=== PATIENT | female | born 1970 | race Caucasian/White ===

== ENCOUNTER 2024-06-20 06:25 | Outpatient (OUT) | payer OTHER, SELFPAY ==
[2024-06-20 06:52] LABS: Basophils Absolute Auto 0.1 10^3/uL (0.0-0.1); Basophils Percent Auto 0.8 % (0.2-2.0); Eosinophils Absolute Auto 0.6 10^3/uL (0.0-0.7); Eosinophils Percent Auto 7.1 % (0.9-7.0); Hematocrit 42.3 % (36.0-48.0); Hemoglobin 13.7 g/dL (12.0-16.0); Immature Granulocytes Abs Auto 0.02 10^3/uL (0.00-0.03); Immature Granulocytes Pct Auto 0.2 % (0.0-0.5); Lymphocytes Absolute Auto 2.2 10^3/uL (1.2-3.8); Lymphocytes Percent Auto 25.3 % (20.5-60.0); Mean Corpuscular HGB Conc 32.4 g/dL (29.9-35.2); Mean Corpuscular Hemoglobin 29.6 pg (26.7-34.0); Mean Corpuscular Volume 91.4 fL (81.0-99.0); Mean Platelet Volume 9.6 fL (9.5-13.5); Monocytes Absolute Auto 0.5 10^3/uL (0.3-0.8); Monocytes Percent Auto 6.3 % (1.7-12.0); Neutrophils Absolute Auto 5.2 10^3/uL (1.4-6.5); Neutrophils Percent Auto 60.3 % (43.0-75.0); Platelet Count 289 10^3/uL (150-450); Red Blood Count 4.63 10^6/uL (4.20-5.40); Red Cell Distribution Width 12.7 % (11.0-15.0); White Blood Count 8.6 10^3/uL (4.0-11.0)
[2024-06-20 07:03] LABS: Estimated Average Glucose 117 mg/dL; Glycohemoglobin A1C 5.7 % (4.5-6.2)
[2024-06-20 07:22] LABS: Alanine Aminotransferase 27 U/L (14-59); Albumin Globulin Ratio 0.9; Albumin Level 3.6 g/dL (3.4-5.0); Alkaline Phosphatase 82 U/L (46-116); Anion Gap 12.2; Aspartate Amino Transferase 15 U/L (15-37); BUN Creatinine Ratio 18.4; Bilirubin Total 0.4 mg/dL (0.2-1.0); Calcium 8.9 mg/dL (8.5-10.1); Carbon Dioxide 27.9 mmol/L (21.0-32.0); Chloride 104 mmol/L (98-107); Chol HDL Ratio 4.9; Cholesterol 221 mg/dL (<=200); Estimated GFR (African America >60 (>=60); Estimated GFR (Non-African Ame >60 (>=60); Globulin 3.9 g/dL; Glucose 126 mg/dL (74-106); HDL Cholesterol 45 mg/dL (40-60); Potassium 4.1 mmol/L (3.5-5.1); Sodium 140 mmol/L (136-145); TSH W/ REFLEX FT4 3.682 uIU/mL (0.358-3.740); Total Protein 7.5 g/dL (6.4-8.2); Triglycerides 206 mg/dL (<=150); VLDL CHOLESTEROL 41.2 mg/dL
== END 2024-06-20 06:26 | disposition home or self-care (01) ==
LOC: LAB 06:31
DX: Z00.00 Encounter for general adult medical examination without abnormal findings (principal); E78.1 Pure hyperglyceridemia; E78.2 Mixed hyperlipidemia
CPT/HCPCS: 36415; 80053; 80061; 83036; 84443; 85025

== ENCOUNTER 2025-04-23 07:27 | Outpatient (OUT) | payer OTHER, SELFPAY ==
--- OUTSIDE RECORDS SUMMARY | 2025-04-23 07:33 | XMS_ITS | CCD ---
Author Organization [facility] Prov[facility] Family Practice Nurse Practitioner Name Role Phone Lv Carty Unavailable Leon Puente Unavailable Angelbruna Carmen Unavailable Lv Carty Unavailable Gordon Hernandez Unavailable Gordon Aaron Unavailable Self, Referral Attending Provider Unavailable DO Lv Carty Primary Care Provider DR JAYLYN LARSEN V Admitting Unavailable DR JAYLYN LARSEN V Attending Unavailable DR MORENA LACY Primary Care Unavailable DR JAYLYN LARSEN V Consulting Unavailable Anne, DO Lu N Primary Care Provider DEEPIKA Hurd Attending Provider [phone] Yovani Hurd Unavailable Anne, DO Lv Drake Primary Care Provider Anne, DO Lv N Referring Provider Self, Referral Attending Provider Unavailable DO Lv Carty N Attending Provider ISSA MORTON Referring Unavailable ANNE, LV N Primary Care Unavailable Pati, Maryann Unavailable Anne, DO Lv N Primary Care Provider Self, Referral Attending Provider Unavailable JAY BELL Attending Unavailabl e Lv Carty N Attending Unavailable Anne, Lv N Primary Care Unavailable Anne, Lv N Admitting Unavailable Anne, Lv N Primary Care Unavailable Self, Referral Admitting Unavailable Self, Referral Attending Unavailable ANNE, LV N Referring Unavailable ANNE, LV N Primary Care Unavailable Allergies Allergy Classification Reported Allergen(s) Allergy Type Date of Onset Reaction(s) Facility (20 sources) Amoxicillin; Translations: [AMOXICILLIN] Drug Allergy 08-31-2023 rash [facility] Repository (1 source) Amoxicillin Drug Allergy 03-19-[address] [facility] Repository Medications Current Medications Medication Drug Class(es) Dates Sig (Normalized) Sig (Original) [id number] actuat albuterol 0.09 mg/actuat metered dose inhaler (11 sources) beta2-Adrenergic Agonist Start: 12-21-2024 Albuterol Sulfate 90 mcg/actuation HFA aerosol inhaler Active INHALATION December 21, 2024 12:00am Start: 11-24-2021 take 1 puff(s) by in halation every four hours as needed Albuterol Sulfate HFA 108 (90 Base) MCG/ACT 1 puff as needed Inhalation every 4 hrs for 30 day(s) Nov, Active Start: 11-24-2021 take 1 puff(s) by in halation every four hours as needed Albuterol Sulfate HFA 108 (90 Base) MCG/ACT 1 puff as needed Inhalation every 4 hrs for 30 day(s) Nov, Active Start: 10-18-2021 take 2 puff(s) by in halation every four hours as needed Albuterol Sulfate HFA 108 (90 Base) MCG/ACT 2 puffs Inhalation every 4 hours as needed for 7 days Oct, Active take 1 puff(s) by in halation every four hours as needed Ventolin HFA 108 (90 Base) MCG/ACT 1 puff as needed Inhalation every 4 hrs Active amoxicillin 875 mg / clavulanate 125 mg oral tablet (11 sources) Penicillin-class Antibacterial Start: 09-05-2021 take 1 tablet by mouth every twelve hours Amoxicillin-Pot Clavulanate 875-125 MG 1 tablet Orally every 12 hrs for 10 day(s) Oct, Active cefdinir 300 mg oral capsule (4 sources) Cephalosporin Antibacterial Start: 11-24-2021 take 1 capsule by mouth every twelve hours Cefdinir 300 MG 1 capsule Orally every 12 hrs for 10 day(s) Nov, Active cephalexin 500 mg oral capsule (10 sources) Cephalosporin Antibacterial Start: 02-05-2024 take 1 capsule by mouth every six hours Cephalexin 500 MG 1 capsule Orally Four times a day for 5 day(s) Dec, Active Start: 09-14-2023 take 1 capsule by mo [facility] every eight hours Cephalexin 500 MG 1 capsule Orally tid for 10 day(s) Sep, Active Start: 09-30-2021 End: 10-26-2021 take 1 capsule by mouth three times daily Cephalexin 500 mg capsule Discontinued 500 MG PO Three times daily September 30, 2021 12:00am October 26, 2021 12:04pm cyclobenzaprine hydrochloride 10 mg oral tablet (18 sources) Muscle Relaxant Start: 11-16-2022 take 1 tablet by mouth every twenty-four hours Cyclobenzaprine HCl 10 MG 1 tablet at bedtime as needed Orally Once a day for 15 day(s) Nov, Active Start: 09-30-2021 End: 03-19-2024 take 1 tablet by mouth three times daily as needed for muscle spasms Cyclobenzaprine 10 mg tablet Discontinued 10 MG PO Three times daily as needed for back spasms September 30, 2021 12:00am March 19, 2024 8:39am take 1 tablet by [facility] every twenty-four hours Cyclobenzaprine HCl 10 MG 1 tablet at bedtime as needed Orally Once a day Active dexamethasone 6 mg oral tablet (4 sources) Corticosteroid Start: 11-24-2021 take 1 tablet by mouth every twenty-four hours Dexamethasone 6 MG 1 tablet Orally qd for 5 day(s) Nov, Active diclofenac sodium 75 mg delayed release oral tablet (5 sources) Nonsteroidal Anti-inflammatory Drug Start: 11-16-2022 take 1 tablet by mouth every twelve hours Diclofenac Sodium 75 MG 1 tablet as needed Orally Twice a day for 15 days Nov, Active Start: 02-02-2022 Voltaren 1 % a s directed Externally Jan, Active Estrogens Conj Synthetic A (8 sources) Estrogens Conj Synthetic A Active fluticasone propionate 0.05 mg/actuat metered dose nasal spray (9 sources) Corticosteroid Start: 03-19-2024 take 1 spray(s) nasal route once daily Fluticasone Propionate 50 mcg/actuation spray,suspension Active 2 SPRAY INTRANASAL Daily March 18, 2024 11:00pm administer into each nostril take 1 spray(s) nasal route once daily Flonase Allergy Relief 50 MCG/ACT 1 spray in each nostril Nasally Once a day Active gabapentin 300 mg oral capsule (20 sources) Anti-epileptic Agent Start: 09-18-2021 End: 03-19-2024 take 2 capsules by mouth three times daily as needed Gabapentin 300 mg capsule Active 600 MG PO Three times daily as needed March 19, 2024 8:40am Start: 09-18-2021 End: 03-19-2024 take 600 mg by mouth three times daily Gabapentin Active 600 MG PO Three times daily March 19, 2024 9:40am take 1 capsule by mo [facility] every twenty-four hours Gabapentin 300 MG 1 capsule Orally Once a day Not-Taking ibuprofen 200 mg oral tablet (20 sources) Nonsteroidal Anti-inflammatory Drug Start: 09-18-2021 take 2 tablets by mouth once daily as needed Ibuprofen 200 mg Tablet Active 400 MG PO Daily as needed for MIGRAINES September 17, 2021 11:00pm Start: 09-18-2021 take 400 mg by mouth once milena y Ibuprofen Active 400 MG PO Daily September 18, 2021 12:00am take 1 tablet by charlie three times daily at mealtime as needed Advil 200 MG 1 tablet with food or milk as needed Orally Three times a day Active {2 (480 ML) (magnesium sulfate 0.0277 MEQ/ML / potassium sulfate 0.0374 MEQ/ML / sodium sulfate 0.257 MEQ/ML Oral Solution) } Pack [Suprep Bowel Prep Kit] (2 sources) Start: 05-11-2021 Suprep Bowel P rep Kit 17.5-3.13-1.6 GM/177ML 177ml at 4pm, 177ml at 11pm the day prior to colonoscopy Orally bid for 1 days Apr, Active methylPREDNISolone 4 mg oral tablet (20 sources) Corticosteroid Start: 12-19-2023 Medrol 4 MG as directed Orally as directed for 6 Dec, Active Start: 06-25-2022 DEPO-Medrol Jul, 80 mg Start: 09-05-2021 Medrol (Jae) 4 MG as directed Orally for daily dose take half with breakfast half with dinner for 6 days Aug, Not-Taking oseltamivir 75 mg oral capsule (1 source) Neuraminidase Inhibitor Start: 12-21-2024 take 1 capsule by mouth twice daily Oseltamivir (Tamiflu) 75 mg capsule Active 75 MG PO Twice daily 10 December 21, 2024 12:00am predniSONE 20 mg oral tablet (20 sources) Start: 09-14-2023 take 1 tablet by mouth every twelve hours predniSONE 20 MG 1 tablet Orally bid for 5 day(s) Sep, Active Start: 07-07-2023 take 2 tablets by [facility] every twenty-four hours predniSONE 20 MG 2 tablet Orally Once a day for 6 days Jun, Active Start: 10-25-2022 predniSONE 10 MG 4 tablet x 3 days, 3 tabs x 3 days 2 tabs x 3 days, 1 tab x 3 days Orally Once a day for 12 day(s) Oct, Not-Taking Start: 11-03-2021 End: 03-19-2024 Prednisone 10 mg tablet Discontinued 10 MG PO Daily November 03, 2021 12:00am March 19, 2024 8:41am 60mg daily for three days, 40mg daily for three days, 20mg daily for three days, 10mg daily for three days. Start: 10-18-2021 take 2 tablets by [facility] every twenty-four hours predniSONE 20 MG 2 tablets Orally Once a day for 5 days Oct, Active Start: 09-30-2021 End: 10-26-2021 Prednisone 10 mg tablets,dos e pack Discontinued 1 dose pk PO per package directions September 30, 2021 12:00am October 26, 2021 12:04pm take 4 tabs for 3 days then take 3 tabs for 3 days then take 2 tabs for 3 days then take 1 tab for 3 days Start: 09-30-2021 End: 10-26-2021 Prednisone Discontinued 1 do se pk PO per package directions September 30, 2021 12:00am October 26, 2021 12:04pm take 4 tabs for 3 days then take 3 tabs for 3 days then take 2 tabs for 3 days then take 1 tab for 3 days Start: 09-30-2021 End: 10-26-2021 Prednisone Discontinued 1 do se pk PO per package directions September 30, 2021 1:00am October 26, 2021 1:04pm take 4 tabs for 3 days then take 3 tabs for 3 days then take 2 tabs for 3 days then take 1 tab for 3 days prednisone 10 mg as directed Orally as directed Active tiZANidine 4 mg oral tablet (11 sources) Central alpha-2 Adrenergic Agonist Start: 07-07-2023 take 1 tablet by mouth once daily at bedtime as needed tiZANidine HCl 4 MG 1 tablet as needed Orally qhs for 15 days Jun, Active Start: 09-05-2021 tiZANidine HCl 4 MG 1 tablet as needed Orally at bedtime for 5 days Aug, Not-Taking Completed/Discontinued Medications Medication Drug Class(es) Dates Sig (Normalized) Sig (Original) atorvastatin 40 mg oral tablet (9 sources) HMG-CoA Reductase Inhibitor Start: 10-07-2021 take 1 tablet by mouth every twenty-four hours Atorvastatin Calcium 40 MG 1 tablet Orally Once a day for 90 day(s) Sep, Not-Taking doxycycline hyclate 100 mg oral capsule (6 sources) Tetracycline-cla ss Drug Start: 10-25-2022 take 1 capsule by mouth every twelve hours Doxycycline Hyclate 100 MG 1 capsule Orally Twice a day for 10 day(s) Oct, Not-Taking Start: 06-25-2022 take 1 tablet by charlie th every twelve hours Doxycycline Hyclate 100 MG 1 tablet Orally Twice a day for 10 day(s) Jun, Active estrogens, conjugated (mcfp) 0.3 mg oral tablet (7 sources) Estrogen Start: 09-18-2021 End: 03-19-2024 take 1 tablet by mouth once daily in the morning Conjugated Estrogens (Premarin) 0.3 mg Tablet Discontinued 0.3 MG PO Every morning September 17, 2021 11:00pm March 19, 2024 8:39am hydrocortisone acetate 25 mg rectal suppository (7 sources) Corticosteroid Start: 05-22-2021 End: 09-18-2021 Hydrocortisone Acetate 25 mg suppository Discontinued 25 MG SC Twice daily 06 06May 21, 2021 11:00pm September 18, 2021 12:31pm hydrOXYzine hydrochloride 25 mg oral tablet (7 sources) Antihistamine Start: 11-03-2021 End: 03-19-2024 take 1 tablet by mouth every six hours as needed Hydroxyzine Hcl 25 mg tablet Discontinued 25 MG PO Q6H as needed for itching November 03, 2021 12:00am March 19, 2024 8:41am omeprazole 40 mg delayed release oral capsule (15 sources) Proton Pump Inhibitor Start: 05-22-2021 End: 03-19-2024 take 1 capsule by mouth twice daily Omeprazole 40 mg capsule,delayed release(DR/EC) Discontinued 40 MG PO Twice daily 168 84 May 21, 2021 11:00pm March 19, 2024 8:41am take 1 capsule by mouth once noemi ly Omeprazole 40 MG 1 capsule 30 minutes before morning meal Orally Once a day Active ondansetron 4 mg oral tablet (7 sources) Serotonin-3 Receptor Antagonist Start: 10-26-2021 End: 03-19-2024 take 1 tablet by mouth every eight hours as needed for nausea and vomiting Ondansetron Hcl (Zofran) 4 mg tablet Discontinued 4 MG PO Q8H as needed for nausea and vomiting 10 17October 26, 2021 12:00am March 19, 2024 8:41am oxyCODONE hydrochloride 5 mg oral tablet (10 sources) Opioid Agonist Start: 09-30-2021 End: 10-26-2021 take 5-10 mg by mouth every six hours as needed for pain Oxycodone 5 mg Tablet Discontinued 5 - 10 MG PO Q6H as needed for Pain 40 September 30, 2021 October 26, 2021 12:04pm pseudoephedrine hydrochloride 60 mg oral tablet (20 sources) alpha-Adrenergic Agonist Start: 03-19-2024 End: 12-21-2024 take 1 tablet by mouth every four to six hours as needed Pseudoephedrine Hcl 60 mg tablet Discontinued 60 MG PO EVERY 4-6 HOURS as needed March 18, 2024 11:00pm December 21, 2024 4:48pm DNExceed 4 doses/24h Start: 09-18-2021 End: 10-26-2021 Pseudoephedrine Hcl (Sudafed ) 30 mg Tablet Discontinued 30 MG PO 2-4 TIMES PER DAY as needed for ALLERGIES September 17, 2021 11:00pm October 26, 2021 12:04pm Sudafed Active Problems Active Problems Problem Classification Problem Date Documented Da te Episodic/Chronic Asthma (18 sources) Mild intermittent asthma; Translations: [Mild intermittent asthma with (acute) exacerbation] Chronic Chronic obstructive pulmonary disease and bronchiectasis (2 sources) Mucopurulent chronic bronchitis Onset: 06-25-2022 Resolved: 06-25-2022 Chronic Disorders of lipid metabolism (20 sources) Mixed hyperlipidemia; Translations: [Mixed hyperlipidemia] Onset: 09-30-2021 Resolved: 09-30-2021 Chronic Fluid and electrolyte disorders (7 sources) Hypovolemia; Translations: [Hypovolemia] 10-26-2021 Episodic Gastrointestinal hemorrhage (20 sources) Rectal hemorrhage; Translations: [Hemorrhage of anus and rectum] 03-19-2024 Episodic Headache; including migraine (3 sources) Migraine; Translations: [Migraine, unspecified, not intractable, without status migrainosus] 03-19-2024 Chronic Immunizations and screening for infectious disease (6 sources) Contact with and (suspected) exposure to other viral communicable diseases; Translations: [Contact with or exposure to other viral diseases] Onset: 09-05-2021 Resolved: 10-18-2021 Episodic Influenza (2 sources) Influenza due to Influenza A virus; Translations: [Influenza due to other identified influenza virus with other respiratory manifestations] 12-21-2024 Episodic Nausea and vomiting (7 sources) Nausea; Translations: [Nausea] 10-26-2021 Episodic Osteoarthritis (20 sources) Arthropathy of left hip joint; Translations: [Unilateral primary osteoarthritis, left hip] Onset: 08-04-2021 Resolved: 08-04-2021 Chronic Other connective tissue disease (20 sources) Trochanteric bursitis of left hip; Translations: [Trochanteric bursitis, left hip] Episodic Other connective tissue disease (16 sources) Bilateral trochanteric bursitis; Translations: [Trochanteric bursitis, right hip] Episodic Other connective tissue disease (2 sources) Other muscle spasm Episodic Other connective tissue disease (9 sources) Trochanteric bursitis; Translations: [Trochanteric bursitis, left hip] 03-19-2024 Episodic Other female genital disorders (1 source) Unspecified dyspareunia; Translations: [Unspecified dyspareunia] Onset: 10-14-2023 Chronic Other gastrointestinal disorders (20 sources) Dysphagia; Translations: [Dysphagia, unspecified] 03-19-2024 Episodic Other gastrointestinal disorders (7 sources) Diarrhea; Translations: [Diarrhea, unspecified] 10-26-2021 Episodic Other lower respiratory disease (2 sources) Wheezing Onset: 11-24-2021 Resolved: 11-24-2021 Episodic Other nervous system disorders (20 sources) Chronic pain; Translations: [Other chronic pain] 03-19-2024 Chronic Other nervous system disorders (1 source) Other chronic pain Onset: 02-02-2022 Resolved: 02-02-2022 Chronic Other nervous system disorders (13 sources) Other disturbances of smell and taste; Translations: [Other disturbances of smell and taste] Episodic Other nervous system disorders (3 sources) Disorder of body system; Translations: [Other disturbances of smell and taste] 03-19-2024 Episodic Other non-traumatic joint disorders (19 sources) Hip pain; Translations: [Pain in unspecified hip] 03-19-2024 Episodic Other non-traumatic joint disorders (1 source) Pain in left shoulder Episodic Other screening for suspected conditions (not mental disorders or infectious disease) (3 sources) Encounter for screening for cardiovascular disorders; Translations: [Encounter for screening mammogram for malignant neoplasm of breast] Onset: 08-05-2021 Resolved: 08-05-2021 Episodic Other skin disorders (7 sources) Eruption; Translations: [Rash and other nonspecific skin eruption] 11-03-2021 Episodic Other upper respiratory infections (5 sources) Acute maxillary sinusitis, unspecified; Translations: [Acute pansinusitis, unspecified] Onset: 09-05-2021 Resolved: 06-25-2022 Episodic Pneumonia (except that caused by tuberculosis or sexually transmitted disease) (1 source) Bronchopneumonia, unspecified organism Episodic Residual codes; unclassified (3 sources) H/O Spinal surgery; Translations: [Other specified postprocedural states] 03-19-2024 Episodic Spondylosis; intervertebral disc disorders; other back problems (20 sources) Lumbosacral spondylosis; Translations: [Spondylosis without myelopathy or radiculopathy, lumbosacral region] Onset: 08-05-2021 Resolved: 01-12-2022 Chronic Spondylosis; intervertebral disc disorders; other back problems (18 sources) Spinal stenosis, lumbar region without neurogenic claudication; Translations: [Radiculopathy, lumbar region] Onset: 08-04-2021 Resolved: 01-12-2022 Episodic Unclassified (3 sources) Tonsillectomy planned; Translations: [Tonsillectomy planned] 03-19-2024 Unclassified (3 sources) Cholecystectomy planned; Translations: [Cholecystectomy planned] 03-19-2024 Unclassified (1 source) Gynecologic Exam Onset: 10-10-2024 Viral infection (10 sources) Disease caused by 2019-nCoV; Translations: [COVID-19] 10-26-2021 Episodic Past or Other Problems Problem Classification Problem Date Documented Da te Episodic/Chronic Other connective tissue disease (1 source) Trochanteric bursitis, right hip Onset: 02-02-2022 Resolved: 02-02-2022 Episodic Other connective tissue disease (2 sources) Trochanteric bursitis, left hip Onset: 01-12-2022 Resolved: 02-02-2022 Episodic Other non-traumatic joint disorders (1 source) Pain in unspecified hip Onset: 02-02-2022 Resolved: 02-02-2022 Episodic Other upper respiratory disease (1 source) Nasal congestion Onset: 11-24-2021 Resolved: 11-24-2021 Episodic Sprains and strains (1 source) Strain of other muscles, fascia and tendons at shoulder and upper arm level, left arm, initial encounter Onset: 09-05-2021 Resolved: 09-05-2021 Episodic Unclassified (1 source) Subacute cough R05.2 Viral infection (2 sources) COVID-19 Onset: 10-18-2021 Resolved: 10-18-2021 Results Test Name Value Interpretation Reference Range Facil ity MM screening mammo BI w/CADo n 06-18-2024 MM screening mammo BI w/CAD [facility] [place] [address] Mammography Report Signed Patient: Mindi Zheng MR#: [id number] : 1970 Acct:[id number] Age/Sex: 54 / F ADM Date: 06/18/24 Loc: [place] Room: Type: [facility] Attending Dr: Referral Self Copies to: Lv Carty, SELF,REFERRAL Ordering Provider: SELF,REFERRAL Date of Service: 06/18/24 MM/MM screening mammo BI w/CAD: SCREENING BILATERAL Screening Full Field digital mammogram with 3-D imaging. Full field digital CC and MLO imaging performed. CAD utilized. COMPARISON: 06/13/2023 HISTORY: Annual screening BREAST COMPOSITION: Scattered fibroglandular densities of the breast parenchyma identified BREAST CALCIFICATIONS: Benign calcifications present. VASCULAR CALCIFICATIONS: None ARCHITECTURAL DISTORTION: None BREAST NODULE: None AXILLARY LYMPH NODES: Normal POSTSURGICAL CHANGES: None MM/MM screening mammo BI w/CAD IMPRESSION: No mammographic evidence of malignancy. Routine follow-up recommended in one year. RESULT CODE: 2 Benign Findings(s) DENSITY CODE: 2 (approximately 25-50% glandular) FOLLOW UP: 1YR THE FALSE-NEGATIVE RATE OF MAMMOGRAPHY IS APPROXIMATELY 10%. IMAGING OF A PALPABLE ABNORMALITY MUST BE BASED ON CLINICAL GROUNDS. PATIENT WAS ENTERED INTO A REMINDER SYSTEM WITH A TARGET DUE DATE FOR THE NEXT MAMMOGRAM. Impression dictated by: Haris Linares M.D.06/18/2024 8:47 AM Dictation Location: [facility] Transcribed By: LISA 06/18/24846 Dictated By: Haris Linares DO 06/18/2446 Signed By: 06/18/24 0847 Normal [facility] COVID + FLU Quick Testingon 12-19-2023 SARS-CoV-2 (COVID-19) RNA BREANNA+probe Ql (Unsp spec) Positive [facility] [employer] Other COVID + FLU Quick Testing Negative [facility] [employer] Other XR cerv spine AP/LAT/FLX/EXT on 07-07-2023 XR cerv spine AP/LAT/FLX/EXT [facility] [address] XRay Report Signed Patient: Mindi Zheng MR#: [id number] : 1970 Acct:[id number] Age/Sex: 53 / F ADM Date: 07/07/23 Loc: [facility] Room: Type: [facility] Attending Dr: Lv Carty DO Copies to: Lv Carty DO Ordering Provider: Lv Carty DO Date of Service: 07/07/23 XR/XR cerv spine AP/LAT/FLX/EXT: Neck pain CERVICAL SPINE 4 views: CLINICAL HISTORY: Left neck, scapular, shoulder pain COMPARISON: None FINDINGS: Vertebral body and disc space heights appear maintained. Mild endplate and facet joint degenerative changes. No pathological motion on flexion or extension. No prevertebral soft tissue swelling. XR/XR cerv spine AP/LAT/FLX/EXT IMPRESSION: MILD DEGENERATIVE CHANGES INVOLVING THE CERVICAL SPINE WITHOUT SIGNIFICANT DISC HEIGHT LOSS. Impression dictated by: Maycol Colon Jr., D.OAmanuel07/07/2023 4:01 PM Dictation Location: [facility]--12 Transcribed By: [facility] 07/07/23 1601 Dictated By: Maycol Colon Jr, DO 07/07/23 1600 Signed By: 07/07/23 1601 Normal [facility] XR chest 2V*on 11-16-2022 XR chest 2V* [facility] [employer] Other XR chest 2V* [facility] [employer] Other XR chest 2V* [address] [place] [address] [employer] Other XR chest 2V* [place] [address] [facility] Other XR chest 2V* XRay Report [facility] Other XR chest 2V* Signed [employer] Other XR chest 2V* Patient: Mindi Zheng MR#: [id number] [facility] Other XR chest 2V* 7706 [employer] Other XR chest 2V* : 1970 Acct:[id number] [employer] Other XR chest 2V* Age/Sex: 52 / F ADM Date: 11/16/22 [employer] Other XR chest 2V* [facility] Room: Type : [facility] [employer] Other XR chest 2V* Attending Dr: Jack Hurd APRN [employer] Other XR chest 2V* Copies to: Yovani Hurd APRN [employer] Other XR chest 2V* Ordering Provider: Yovani Hurd APRN [employer] Other XR chest 2V* Date of Service: 11/16/22 [facility] Other XR chest 2V* XR/XR chest 2V*: Subacute cough [employer] Other XR chest 2V* Chest 2 views [facility] [employer] Other XR chest 2V* CLINICAL HISTORY: Nonproductive cough for 2 weeks with left shoulder pain for 2 days. [employer] Other XR chest 2V* COMPARISON: None [employer] Other XR chest 2V* FINDINGS: [facility] Other XR chest 2V* Heart normal size. Lungs are clear. No free air. [employer] Other XR chest 2V* XR/XR chest 2V* [employer] Other XR chest 2V* IMPRESSION: [employer] Other XR chest 2V* NO ACUTE CARDIOPULMONARY ABNORMALITY. [employer] Other XR chest 2V* Impression dictated by: Maycol Colon Jr., D.OAmanuel11/16/2022 3:35 PM [employer] Other XR chest 2V* Dictation Location: [place] [address] [employer] Other XR chest 2V* Transcribed By: LISA 11/16/22 [facility] [employer] Other XR chest 2V* Dictated By: Maycol Colon Jr, DO 11/16/22 [facility] [employer] Other XR chest 2V* Signed By: [employer] Other XR chest 2V* 11/16/22 1535 [facility] [employer] Other XR hips BI 4V adulton 2021 XR hips BI 4V adult [facility] [employer] Other XR hips BI 4V adult [facility] Other XR hips BI 4V adult [address] [facility] [employer] Other XR [place] [address] [employer] Other XR hips BI 4V adult XRay Report [employer] Other XR hips BI 4V adult Signed [employer] Other XR hips BI 4V adult Patient: Mindi Zheng MR#: [id number] [employer] Other XR hips BI 4V adult 7706 [employer] Other XR hips BI 4V adult : 1970 Acct:[id number] [employer] Other XR hips BI 4V adult Age/Sex: 51 / F ADM Date: 02/02/22 [employer] Other XR hips BI 4V adult Loc: [facility] Room: Type: REG CLI [employer] Other XR hips BI 4V adult Attending Dr: Gordon Aaron MD [employer] Other XR hips BI 4V adult Ordering Provider: Gordon Aaron MD [facility] Other XR hips BI 4V adult Date of Service: 02/02/22 [facility] Other XR hips BI 4V adult XR/XR hips BI 4V adult: Hip pain [facility] Other XR hips BI 4V adult Copies to: Gordon Aaron MD [facility] Other XR hips BI 4V adult ADULT PELVIS WITH BILATERAL HIPS -3 views [facility] Other XR hips BI 4V adult CLINICAL HISTORY: Bilateral chronic hip and groin pain, greater on the left. No reported injury. [facility] Other XR hips BI 4V adult Back surgery 4 months ago. [facility] Other XR hips BI 4V adult COMPARISON: KUB 08/23/2014 [facility] Other XR hips BI 4V adult AP view of the pelvis as well as frog-lateral views of both hips were obtained. No fracture, [facility] Other XR hips BI 4V adult dislocation or bony destruction is seen. The hip joint spaces are symmetric. There is no sig [facility] Other XR hips BI 4V adult nificant arthritic change at the hips. Enthesophytes are visualized at the iliac crests and greater [facility] Other XR hips BI 4V adult trochanters. The SI joints are intact and show minor sclerosis. The soft tissues are unremarkable. [facility] Other XR hips BI 4V adult XR/XR hips BI 4V adult [facility] Other XR hips BI 4V adult IMPRESSION: [facility] Other XR hips BI 4V adult NO ACUTE PLAIN FILM FINDINGS. [facility] Other XR hips BI 4V adult Impression dictated by: Tracey Carlson M.D.02/02/2022 3:50 PM [facility] Other XR hips BI 4V adult Dictation Location: [place] [address] [facility] Other XR hips BI 4V adult Transcribed By: LISA 02/02/22 1550 [facility] Other XR hips BI 4V adult Dictated By: Tracey Carlson MD 02/02/22 1548 [facility] Other XR hips BI 4V adult Signed By: [facility] Other XR hips BI 4V adult 02/02/22 1550 [facility] Other COVID + FLU Quick Testingon 11-24-2021 SARS-CoV-2 (COVID-19) RNA BREANNA+probe Ql (Unsp spec) Negative [facility] Other COVID + FLU Quick Testing Negative [facility] Other COVID Quick Testingon 2020 Result Positive [facility] Other XR lumbar spine AP/LAT/FLX/E XTon 08-04-2021 XR lumbar spine AP/LAT/FLX/EXT [facility] Other XR lumbar spine AP/LAT/FLX/EXT [facility] Other XR lumbar spine AP/LAT/FLX/EXT [address] [place] [address] [facility] Other XR lumbar spine AP/LAT/FLX/[place] [address] [employer] Other XR lumbar spine AP/LAT/FLX/EXT XRay Report [facility] Other XR lumbar spine AP/LAT/FLX/EXT Signed [facility] Other XR lumbar spine AP/LAT/FLX/EXT Patient: Mindi Zheng MR#: [id number] [facility] Other XR lumbar spine AP/LAT/FLX/EXT 7706 [facility] Other XR lumbar spine AP/LAT/FLX/EXT : 1970 Acct:[id number] [facility] Other XR lumbar spine AP/LAT/FLX/EXT Age/Sex: 51 / F ADM Date: 08/04/21 [facility] Other XR lumbar spine AP/LAT/FLX/EXT Loc: XD Room: Type: [facility] Other XR lumbar spine AP/LAT/FLX/EXT Attending Dr: Leon Puente MD [facility] Other XR lumbar spine AP/LAT/FLX/EXT Ordering Provider: Leon Puente MD [facility] Other XR lumbar spine AP/LAT/FLX/EXT Date of Service: 08/04/21 [employer] Other XR lumbar spine AP/LAT/FLX/EXT XR/XR lumbar spine AP/LAT/FLX/EXT: M54.16 [facility] Other XR lumbar spine AP/LAT/FLX/EXT Copies to: Leon Puente MD [facility] Other XR lumbar spine AP/LAT/FLX/EXT XR lumbar spine AP/LAT/FLX/EXT 08/04/2021 2:11 PM [facility] Other XR lumbar spine AP/LAT/FLX/EXT SIGNS AND SYMPTOMS: Low back pain radiating to left thigh radiating to the mid and lower calf [facility] Other XR lumbar spine AP/LAT/FLX/EXT PROTOCOLS: Frontal, lateral, and flexion-extension views of the lumbar spine [facility] Other XR lumbar spine AP/LAT/FLX/EXT COMPARISON: 12/08/2018 [employer] Other XR lumbar spine AP/LAT/FLX/EXT FINDINGS: [facility] Other XR lumbar spine AP/LAT/FLX/EXT There is a levoconvex curvature of the lumbar spine. This is slightly more pronounced when [facility] Other XR lumbar spine AP/LAT/FLX/EXT compared to the prior exam. There is no fracture or destructive lesion. There is no pathologic [facility] Other XR lumbar spine AP/LAT/FLX/EXT movement on flexion or extension. [facility] Other XR lumbar spine AP/LAT/FLX/EXT Minimal intervertebral disc height loss is noted throughout the lumbar spine with mild anterior [facility] Other XR lumbar spine AP/LAT/FLX/EXT osteophyte formation at T12-L1, L1-L2, L2-3, and L5-S1. Facet degenerative changes are present [facility] Other XR lumbar spine AP/LAT/FLX/EXT greatest at L4-5 and L5-S1.. [facility] Other XR lumbar spine AP/LAT/FLX/EXT The sacrum and sacroiliac joints are normal. [facility] Other XR lumbar spine AP/LAT/FLX/EXT Atherosclerotic changes are noted in the abdominal aorta. There is evidence of prior [facility] Other XR lumbar spine AP/LAT/FLX/EXT cholecystectomy. [facility] Other XR lumbar spine AP/LAT/FLX/EXT XR/XR lumbar spine AP/LAT/FLX/EXT [facility] Other XR lumbar spine AP/LAT/FLX/EXT IMPRESSION: [facility] Other XR lumbar spine AP/LAT/FLX/EXT Mild multilevel degenerative change similar to prior exam. [facility] Other XR lumbar spine AP/LAT/FLX/EXT There is a mild levoconvex curvature of the lumbar spine. This is slightly more pronounced. [facility] Other XR lumbar spine AP/LAT/FLX/EXT No pathologic movement on flexion or extension. [facility] Other XR lumbar spine AP/LAT/FLX/EXT Impression dictated by: Marck Desir M.D.08/04/2021 4:42 PM [facility] [employer] Other XR lumbar spine AP/LAT/FLX/EXT Dictation Location: [address] [employer] Other XR lumbar spine AP/LAT/FLX/EXT Transcribed By: PWS 08/04/21 [facility] [employer] Other XR lumbar spine AP/LAT/FLX/EXT Dictated By: Marck Desir II, MD 08/04/21 [facility] Other XR lumbar spine AP/LAT/FLX/EXT Signed By: [employer] Other XR lumbar spine AP/LAT/FLX/EXT 08/04/21 [facility] [employer] Other Vital Signs Date Time Vital Sign Value Performing Clinician Facility 12-21-2024 16:50-0500 Body height 168.91 cm [facility] 12-21-2024 16:50-0500 Body mass index (BMI) [Ratio] 31.8 kg/m2 [facility] 12-21-2024 16:50-0500 Body temperature 97.3 [degF] [facility] 12-21-2024 16:50-0500 Body weight 90.71 kg [facility] 12-21-2024 16:50-0500 Diastolic blood pressure 75 mm[Hg] [facility] 12-21-2024 16:50-0500 Heart rate 110 /min [facility] 12-21-2024 16:50-0500 Respiratory rate 18 /min [facility] 12-21-2024 16:50-0500 SaO2% (BldA) [Mass fraction] 97 % [facility] 12-21-2024 16:50-0500 Systolic blood pressure 122 mm[Hg] [facility] 03-19-2024 09:36-0400 Body height 168.91 cm [facility] 03-19-2024 09:36-0400 Body mass index (BMI) [Ratio] 34 kg/m2 [facility] 03-19-2024 09:36-0400 Body weight 97.18 kg [facility] 03-19-2024 09:36-0400 Diastolic blood pressure 78 mm[Hg] [facility] 03-19-2024 09:36-0400 Heart rate 87 /min [facility] 03-19-2024 09:36-0400 SaO2% (BldA) [Mass fraction] 98 % [facility] 03-19-2024 09:36-0400 Systolic blood pressure 112 mm[Hg] [facility] 12-19-2023 09:00-0500 Body height 168.91 cm Maryann Pati Other [facility] [employer] Other 12-19-2023 09:00-0500 Body mass index (BMI) [Ratio] 31.79 kg/m2 Maryann Pati Other [facility] Other 12-19-2023 09:00-0500 Body temperature 97.2 [degF] Maryann Pati Other [facility] Other 12-19-2023 09:00-0500 Body weight 90.72 kg Maryann Pati Other [facility] Other 12-19-2023 09:00-0500 Respiratory rate 18 /min Maryann Pati Other [facility] Other 12-19-2023 09:00-0500 SaO2% (BldA) [Mass fraction] 96 % Maryann Ptai Other [facility] Other 08-04-2023 09:00-0400 Body height 168.91 cm Lv Carty Other [facility] Other 08-04-2023 09:00-0400 Body mass index (BMI) [Ratio] 32.16 kg/m2 Lv Mendozamer Other [facility] Other 08-04-2023 09:00-0400 Body weight 91.76 kg Lv Mendozamer Other [facility] Other 08-04-2023 09:00-0400 Diastolic blood pressure 88 mm[Hg] Lv Anne Other [facility] Other 08-04-2023 09:00-0400 Respiratory rate 18 /min Lv Anne Other [facility] Other 08-04-2023 09:00-0400 SaO2% (BldA) [Mass fraction] 97 % Lv Anne Other [facility] Other 08-04-2023 09:00-0400 Systolic blood pressure 122 mm[Hg] Lv Anne Other [facility] Other 07-07-2023 15:15-0400 Body height 168.91 cm Lv Anne Other [facility] Other 07-07-2023 15:15-0400 Body mass index (BMI) [Ratio] 33.22 kg/m2 Lv Anne Other [facility] Other 07-07-2023 15:15-0400 Body weight 94.8 kg Lv Carty Other [facility] Other 07-07-2023 15:15-0400 Diastolic blood pressure 78 mm[Hg] Lv Carty Other [facility] Other 07-07-2023 15:15-0400 Respiratory rate 18 /min Lv Carty Other [facility] Other 07-07-2023 15:15-0400 SaO2% (BldA) [Mass fraction] 98 % Lv Carty Other [facility] Other 07-07-2023 15:15-0400 Systolic blood pressure 130 mm[Hg] Lv Carty Other [facility] Other 11-16-2022 14:45-0500 Body height 168.91 cm Yovani Hurd Other [facility] Other 11-16-2022 14:45-0500 Body mass index (BMI) [Ratio] 31.67 kg/m2 Yovani Hurd Other [facility] Other 11-16-2022 14:45-0500 Body weight 90.36 kg Yovani Hurd Other [facility] Other 11-16-2022 14:45-0500 Diastolic blood pressure 78 mm[Hg] Yovani Hurd Other [facility] Other 11-16-2022 14:45-0500 Respiratory rate 16 /min Yovani Hurd Other [facility] Other 11-16-2022 14:45-0500 SaO2% (BldA) [Mass fraction] 99 % Yovani Hurd Other [facility] Other 11-16-2022 14:45-0500 Systolic blood pressure 122 mm[Hg] Yovani Kernks Other [facility] Other 10-25-2022 10:30-0500 Body height 168.91 cm Yovani Hurd Other [facility] Other 10-25-2022 10:30-0500 Body mass index (BMI) [Ratio] 31.89 kg/m2 Yovani Hurd Other [facility] Other 10-25-2022 10:30-0500 Body temperature 98 [degF] Yovani Hurd Other [facility] Other 10-25-2022 10:30-0500 Body weight 90.99 kg Yovani Hurd Other [facility] Other 10-25-2022 10:30-0500 Diastolic blood pressure 78 mm[Hg] Yovani Hurd Other [facility] Other 10-25-2022 10:30-0500 Respiratory rate 16 /min Yovani Hurd Other [facility] Other 10-25-2022 10:30-0500 SaO2% (BldA) [Mass fraction] 99 % Yovani Hurd Other [facility] Other 10-25-2022 10:30-0500 Systolic blood pressure 118 mm[Hg] Yovani Hurd Other [facility] Other 06-25-2022 10:45-0400 Body height 168.91 cm Lv Carty Other [facility] Other 06-25-2022 10:45-0400 Body mass index (BMI) [Ratio] 32.51 kg/m2 Lv Carty Other [facility] Other 06-25-2022 10:45-0400 Body temperature 99.4 [degF] Lv Anne Other [facility] Other 06-25-2022 10:45-0400 Body weight 92.76 kg Lv Anne Other [facility] Other 06-25-2022 10:45-0400 Diastolic blood pressure 84 mm[Hg] Lv Anne Other [facility] Other 06-25-2022 10:45-0400 Respiratory rate 18 /min Lv Mendozamer Other [facility] Other 06-25-2022 10:45-0400 SaO2% (BldA) [Mass fraction] 98 % Lv Mendozamer Other [facility] Other 06-25-2022 10:45-0400 Systolic blood pressure 124 mm[Hg] Lv Anne Other [facility] Other 02-02-2022 16:30-0400 Body height 168.91 cm Gordon Aaron Other [facility] Other 02-02-2022 16:30-0400 Body mass index (BMI) [Ratio] 31.79 kg/m2 Gordon Aaron Other [facility] Other 02-02-2022 16:30-0400 Body weight 90.72 kg Gordon Aaron Other [facility] Other 01-12-2022 11:20-0500 Body height 168.91 cm Leon Puente Other [facility] Other 01-12-2022 11:20-0500 Body mass index (BMI) [Ratio] 31.79 kg/m2 Leon Puente Other [facility] Other 01-12-2022 11:20-0500 Body weight 90.72 kg Leon Puente Other [facility] Other 11-24-2021 10:45-0500 Body height 168.91 cm Lv Carty Other [facility] Other 11-24-2021 10:45-0500 Respiratory rate 18 /min Lv Carty Other [facility] Other 11-24-2021 10:45-0500 SaO2% (BldA) [Mass fraction] 98 % Lv Carty Other [facility] Other 11-10-2021 14:00-0500 Body height 168.91 cm Leon Puente Other [facility] Other 11-10-2021 14:00-0500 Body mass index (BMI) [Ratio] 31.79 kg/m2 Leon Puente Other [facility] Other 11-10-2021 14:00-0500 Body weight 90.72 kg Leon Puente Other [facility] Other 10-18-2021 10:00-0500 Body height 168.91 cm Gordon Hernandez Other [facility] Other 10-18-2021 10:00-0500 Body mass index (BMI) [Ratio] 31.79 kg/m2 Gordon Hernandez Other [facility] Other 10-18-2021 10:00-0500 Body temperature 98 [degF] Gordon Hernandez Other [facility] Other 10-18-2021 10:00-0500 Body weight 90.72 kg Gordon Hernandez Other [facility] Other 10-18-2021 10:00-0500 Diastolic blood pressure 91 mm[Hg] Gordon Hernandez Other [facility] Other 10-18-2021 10:00-0500 SaO2% (BldA) [Mass fraction] 98 % Gordon Hernandez Other [facility] Other 10-18-2021 10:00-0500 Systolic blood pressure 136 mm[Hg] Gordon Hernandez Other [facility] Other 09-05-2021 13:30-0400 Body height 168.91 cm Carmen Ginty Other [facility] Other 09-05-2021 13:30-0400 Body mass index (BMI) [Ratio] 32.75 kg/m2 Carmen Ginty Other [facility] Other 09-05-2021 13:30-0400 Body temperature 97.5 [degF] Carmen Ginty Other [facility] Other 09-05-2021 13:30-0400 Body weight 93.44 kg Carmen Ginty Other [facility] Other 09-05-2021 13:30-0400 SaO2% (BldA) [Mass fraction] 100 % Carmen Ginty Other [facility] Other 08-05-2021 11:30-0400 Body height 168.91 cm Lv Mendozamer Other [facility] Other 08-05-2021 11:30-0400 Body mass index (BMI) [Ratio] 32.84 kg/m2 Lv Carty Other [facility] Other 08-05-2021 11:30-0400 Body temperature 96.9 [degF] Lv Anne Other [facility] Other 08-05-2021 11:30-0400 Body weight 93.71 kg Lv Anne Other [facility] Other 08-05-2021 11:30-0400 Diastolic blood pressure 84 mm[Hg] Lvsantana Carty Other [facility] Other 08-05-2021 11:30-0400 Respiratory rate 18 /min Lv Anne Other [facility] Other 08-05-2021 11:30-0400 SaO2% (BldA) [Mass fraction] 98 % Lv Carty Other [facility] Other 08-05-2021 11:30-0400 Systolic blood pressure 130 mm[Hg] Lv Carty Other [facility] Other 08-04-2021 14:20-0400 Body height 168.91 cm Leon Puente Other [facility] Other 08-04-2021 14:20-0400 Body mass index (BMI) [Ratio] 31.79 kg/m2 Leon Puente Other [facility] Other 08-04-2021 14:20-0400 Body weight 90.72 kg Leon Puente Other [facility] Other 08-04-2021 14:20-0400 Diastolic blood pressure 72 mm[Hg] Leon Puente Other [facility] Other 08-04-2021 14:20-0400 Systolic blood pressure 124 mm[Hg] Leon Puente Other [employer] Other Encounters Encounter Date Encounter Type Care Provider Facility Start: 12-21-2024 End: 12-21-2024 ambulatory [facility] Work Phone: Start: 12-21-2024 End: 12-21-2024 Patient encounter procedure [facility] [place] Work Phone: Start: 10-10-2024 End: 10-10-2024 ambulatory [facility] Start: 10-10-2024 Encounter for gynecological examination (general) (routine) without abnormal findings [facility] Start: 06-19-2024 End: 06-19-2024 ambulatory JAY BELL Not Available Start: 06-18-2024 End: 06-18-2024 Patient encounter procedure DO Lv Carty Work Phone: [facility] Work Phone: Start: 06-18-2024 End: 06-18-2024 ambulatory DO Lv Carty Work Phone: [facility] Work Phone: Start: 03-19-2024 End: 03-19-2024 ambulatory [facility] Work Phone: Start: 03-19-2024 End: 03-19-2024 Patient encounter procedure [facility] [place] Work Phone: Start: 12-19-2023 End: 12-19-2023 ambulatory Maryanntri [employer] Other [facility] Other Start: 12-19-2023 Office outpatient vi sit 15 minutes Maryann Pati [facility] [place] Start: 12-19-2023 Telephone encounter Lv Najera [facility] [place] Start: 10-14-2023 End: 11-14-2023 ambulatory [facility] [place] Start: 09-14-2023 End: 09-14-2023 ambulatory Lv Carty Other [facility] Other Start: 09-14-2023 Telephone encounter Lv Najera [facility] [place] Start: 08-19-2023 End: 08-19-2023 ambulatory Lv Carty Other [facility] Other Start: 08-19-2023 Telephone encounter Lv Najera [facility] [place] Start: 08-04-2023 (Procedure) Short Lvsantana Caryt [facility] [place] Start: 08-04-2023 End: 08-04-2023 ambulatory Lv Carty Other [facility] Other Start: 07-14-2023 End: 07-14-2023 ambulatory Lv Carty Other [facility] Other Start: 07-14-2023 Telephone encounter Lv Najera [facility] [place] Start: 07-08-2023 End: 07-08-2023 ambulatory Lv Carty Other [facility] Other Start: 07-08-2023 Telephone encounter Lv Najera [facility] [place] Start: 07-07-2023 End: 07-07-2023 Patient encounter procedure DO Lv Carty Work Phone: [facility] Start: 07-07-2023 End: 07-07-2023 ambulatory DO Lv Carty Work Phone: [facility] Work Phone: Start: 07-07-2023 Office outpatient vi sit 15 minutes Lv Carty [facility] Start: 06-13-2023 End: 06-13-2023 ambulatory DO vL Carty Work Phone: [facility] Work Phone: Start: 06-13-2023 End: 06-13-2023 Patient encounter procedure DO Lv Carty Work Phone: [facility] Work Phone: Start: 11-16-2022 End: 11-16-2022 ambulatory DO Lv Carty Work Phone: [facility] Work Phone: Start: 11-16-2022 End: 11-16-2022 Patient encounter procedure DO Lv Carty Work Phone: [facility] [place] Start: 11-16-2022 Office outpatient vi sit [address] [facility] [place] Start: 11-16-2022 Telephone encounter Lv Najera [facility] Start: 11-16-2022 End: 11-16-[address] JAYLYN LARSEN Facility: Start: 10-25-2022 End: 10-25-2022 ambulatory Yovani Hurd Other [facility] Other Start: 10-25-2022 Office outpatient vi sit 15 minutes Yovani Hurd [facility] Start: 09-27-2022 End: 09-27-2022 ambulatory Lv Carty Other [facility] Other Start: 09-27-2022 Telephone encounter Lv Najera [facility] [place] Start: 09-17-2022 End: 09-17-2022 ambulatory Lv Carty Other [facility] Other Start: 09-17-2022 Telephone encounter Lv Najera [facility] [place] Start: 06-25-2022 End: 06-25-2022 ambulatory Lv Carty Other [facility] Other Start: 06-25-2022 Office outpatient vi sit 15 minutes Lv Anne [facility] [place] Start: 06-07-2022 End: 06-07-2022 Patient encounter procedure Referral Self [facility] Start: 02-03-2022 End: 02-03-2022 ambulatory Gordon Aaron Other [facility] Other Start: 02-03-2022 Telephone encounter Gordon Aaron [employer] Start: 02-02-2022 End: 02-02-2022 ambulatory Gordon Aaron Other [facility] Other Start: 02-02-2022 Office consultation new/estab patient 60 min Gordon Aaron [facility] [place] Start: 01-12-2022 End: 01-12-2022 ambulatory Leon Puente Other [facility] Other Start: 01-12-2022 Postop follow up vis it related to original px Leon Puente [facility] Neuro[facility] Start: 11-24-2021 End: 11-24-2021 ambulatory Lv Carty Other [facility] Other Start: 11-24-2021 Office outpatient vi sit [address] [facility] Start: 11-10-2021 End: 11-10-2021 ambulatory Leon Puente Other [facility] Other Start: 11-10-2021 Postop follow up vis it related to original px Leon Puente [facility] Neurosurgery Start: 11-04-2021 End: 11-04-2021 ambulatory Lv Carty Other [facility] Other Start: 11-04-2021 Telephone encounter Lv Najera [facility] Start: 10-28-2021 End: 10-28-2021 ambulatory Lv Carty Other [facility] Other Start: 10-28-2021 Telephone encounter Lv Najera [facility] Start: 10-18-2021 End: 10-18-2021 ambulatory Gordon Hernandez Other [facility] Other Start: 10-18-2021 Office outpatient vi sit 15 minutes Gordon Orme [facility] Urgent Care [facility] Start: 09-30-2021 End: 09-30-2021 ambulatory Lv Carty Other [facility] Other Start: 09-30-2021 Telephone encounter Lv Najera [facility] Start: 09-07-2021 Telephone encounter Leon Puente [facility] Neurosurgery Start: 09-05-2021 End: 09-05-2021 ambulatory Carmen Ginty Other [facility] Other Start: 09-05-2021 Office outpatient vi sit 15 minutes Carmen Khannty [facility] [place] Start: 08-27-2021 Telephone encounter Leon Puente [facility] Neurosurgery Start: 08-05-2021 Encounter for genera l adult medical examination without abnormal findings Lv Carty [facility] Start: 08-05-2021 Periodic preventive med est patient 40-64yrs Lv Carty [facility] Start: 08-04-2021 Office outpatient ne w 45 minutes Leon Puente [facility] Neurosurgery Procedures Date Procedure Procedure Detail Performing Clinician Start: 06-18-2024 Screening mammography of bilateral breasts DO Lv Carty Work Phone: Start: 07-07-2023 X-ray of cervical spine DO Lv Landin lorenzo Work Phone: Start: 06-13-2023 Screening mammography of bilateral breasts DO Lv Carty Work Phone: Start: 11-16-2022 Plain chest X-ray DO Lv Carty Work Phone: Start: 06-07-2022 Screening mammography of bilateral breasts Referral Self H/O: hysterectomy H/O hysterecto my with oophorectomy Immunizations Immunization Date Immunization Notes Care Provider Fa cility NEGATED: Highlighted row has not occurred!08-16-2022 influenza, seasonal, injectable Patient Objection Lv Anne Other [facility] [email or web address] Other Payers Date Payer Category Payer Self-pay [id number] 2014 Private Health Insurance [id number] 1970 Unknown [id number] 2.16.84 [id number] 1970 Unknown [id number] [id number] [id number] 1970 Unknown [id number] 2.16.84 [id number] 1970 Unknown [id number] 2.16.8 [id number] 1960 Self-pay [id number] Private Health Insurance [id number] Unknown [id number] [id number] [id number] Unknown [id number] 2.16.8 [id number] Social History Date Type Detail Facility Sex Assigned At [facility] [email or web address] Other Start: 11-03-2021 End: 11-03-2021 Tobacco smoking status NHIS Never smoked tobacco (finding) [facility] Start: 1970 Sex Assigned At Female [facility] Start: 12-21-2024 Sex Female (finding) [facility] Clinical Notes 08-04-2021 to 12-19-2023 Note Date & Type Note Facility 12-19-2023 Evaluation note Encounter Date Diagnosis Assessment Notes Dec, Contact with and (suspected) exposure to other viral communicable diseases (ICD-10 - Z20.828) Dec, COVID (ICD-10 - U07.1) Rest. Drink plenty of fluids. You may take [id number] nter Tylenol or Motrin as needed for fever or discomfort. Take the Keflex 500 mg 4 times a day for the next 5 days for your sinus infection. Take the Medrol Dosepak as directed. You tested positive for COVID but you have had symptoms for anywhere from 7 to 10 days at this point. You will need to wear a mask in public until day 10. Follow-up with your primary care provider if symptoms persist. Patient is a 53-year-old female who presents to urgent care with complaints of Slam sinus congestion and sinus pressure for the past week or more. Patient states that initially it started out with an upper respiratory type illness which subsided slightly with symptoms however now she has sinus congestion sinus pain and headaches. She denies any fever or chills. She does have a history of asthma. Patient was swabbed for COVID and flu during this visit. She did test positive for COVID. Patient has had about 7 to 10 days of symptoms at this time. Slight expiratory wheezes noted in the bilateral upper lobes posteriorly. Patient is positive for sinus inflammation, sinus congestion, green drainage. She has fullness in the ears with clear fluid behind the TM. Patient is being diagnosed with an acute sinusitis. She is being prescribed Keflex which has worked for her in the past. She is to take the Keflex as prescribed for the next 5 days. She was prescribed a Medrol Dosepak that she will take as directed. Patient is to follow-up with her primary care provider if symptoms persist. Dec, Acute sinusitis, recurrence not specified, unspecified location (ICD-10 - J01.90) [facility] Other 09-21-2023 Evaluation note* Encounter Date Diagnosis Assessment Notes Treatment Notes Treatment Clinical Notes Jul, Trigger point of neck (ICD-10 - M54.2) Jul, Trigger point of left shoulder region (ICD-10 - M25.512) 3 trigger points identified with 2 in the left trapezius and 1 in the left upper paraspinal muscle. Trigger point injection performed today and aftercare instruction detail the patient. [facility] Other 08-24-2023 Evaluation note* Encounter Date Diagnosis Assessment Notes Treatment Notes Treatment Clinical Notes Jun, Neck pain (ICD-10 - M54.2) Patient continues to have neck pain that is concerning for underlying osteoarthritis. She also has paraspinal muscle pain and spasm as well as trapezius pain and spasm. Will obtain x-rays of the neck and give a short supply of steroids and muscle relaxers. Gave rehab exercises for both cervical and trapezius to help alleviate the pain and spasm. If this is not working well enough would consider formal physical therapy. Also if there is significant arthritis on the x-ray could consider pain management referral for injections. Jun, Trapezius muscle spasm (ICD-10 - M62.838) If cervical pain comes down patient continues to have tightness and pain in the trapezius could consider trigger point injections. [facility] Other 01-03-2023 Evaluation note* Encounter Date Diagnosis Assessment Notes Treatment Notes Treatment Clinical Notes Nov, Neck pain (ICD-10 - M54.2) Advised patient that neck pain may be associated with increased cough, however, I am not convinced that it is and may be seperate concerns. Advised that will treat neck pain and spasms initially with Diclofenac Sodium 75mg orally BID and use cyclobenzaprine 10mg orally daily at bedtime for spasms. Advised to continue to perform stretching exercises and to call back if no relief and we will consider formal physical therapy. Patient acknowledges understanding and agrees to treatment. Nov, Subacute cough (ICD-10 - R05.2) 52 y.o female seen in the office today for continued cough after treatment of bronchial pneumonia with antibiotic and steroids. she reports using OTC meds with minimal relief. She is also complaining of left shoulder and neck pain with some extensuation in between her scapula. She is concnerned that she has pneumonia. Advised that her current symptoms are not consistent with pneumonia given she is afebrile and her vitals are stable. Advised that will obtian chest x-ray to r/o underlying cause of subacute cough. X-ray performed in the office and shows no acute cardiopulmonary abnormalities. Advised to contninue with OTC meds and home remedies to decrease cough. Advised to call back if experiences fever, SOB, N/V/D. Patient acknowledges understanding. Nov, Spasm of cervical paraspinous muscle (ICD-10 - M62.838) Nov, Mild intermittent asthma with acute exacerbation (ICD-10 - J45.21) Advised patient to continue to use Ventolin inhaler prn for SOB. [facility] Other 12-12-2022 Evaluation note* Encounter Date Diagnosis Assessment Notes Treatment Notes Treatment Clinical Notes Oct, Bronchial pneumonia (ICD-10 - J18.0) 52 y.o. female seen in the office today for continued rhinoorhea, chest congestion and productive cough. I did appreciate a mild inspiratory wheeze on physical exam. She has been experiencing symptoms for over 2 weeks now. Advised to start doxycycline 100mg BID for 10days and to take prenisone tapered dose for her wheezing 40mg x 3 days, 30mg x 3 days, 20mg x 3 days and then 10mg x 3 days. Advised that symptoms should continue to improve in 3-4 days but fercho complete the antibiotic. Advised to call back right away if experiences increased fever, CP, SOB, and/or N/V/D. Pt acknowledges understanding and agrees to treatment. Oct, Wheezing (ICD-10 - R06.2) [facility] Other 11-14-2022 Evaluation note* Encounter Date Diagnosis Assessment Notes Treatment Notes Treatment Clinical Notes Sep, Purulent bronchitis (ICD-10 - J41.1) [facility] Other 08-12-2022 Evaluation note* Encounter Date Diagnosis Assessment Notes Treatment Notes Treatment Clinical Notes Jun, Acute non-recurrent maxillary sinusitis (ICD-10 - J01.00) Patient has an acute sinusitis and has severe sinus inflammation and pressure and to help alleviate this issue quickly she was given an IM Depo-Medrol injection. She can use [id number] Flonase and nasal saline irrigation as well to help reduce symptoms. Jun, Purulent bronchitis (ICD-10 - J41.1) Patient has clinical evidence and symptoms suggestive of purulent bronchitis and she will be placed on doxycycline 100 mg twice daily for this issue. She is to call right away if she feels she is worsening or not improving. [facility] Other 03-22-2022 Evaluation note* Encounter Date Diagnosis Assessment Notes Treatment Notes Treatment Clinical Notes Jan, Hip pain (ICD-10 - M25.559) Patient appeasrs to have done very well with lumbar surgery. She has bilateral hip pain consistent with trochanteric bursitis. We discussed treatment options, she is somewhat nervous and reluctant to try injections today. We will start with more conservative care, we will prescribe Voltaren gel to be applied two to three times daily. Risks and side effects of this medication was discussed in detail with the patient who voiced understanding. Patient was encouraged to continue with use of Ibuprofen and Tylenol as needed for pain. Additionally, patient was provided with trochanteric bursitis exercises to do at home. At follow up should her pain symptoms persist we would further suggest trochanteric bursa injections. Jan, Trochanteric bursitis, right hip (ICD-10 - M70.61) Jan, Trochanteric bursitis, left hip (ICD-10 - M70.62) Jan, Chronic pain (ICD-10 - G89.29) Jan, Other Above note written by Edgar Anderson LPN, Statement Request Clerk. Edited and approved by Dr. Gordon Aaron MD. Medical decision making shows a new problem to me with further workup planned or suggested with the potential for extensive treatment options that were considered with the most applicable given this patient's situation as noted above. Treatment options considered include a combination of physical therapy approaches, pharmacologic management, and interventional procedures. Those most applicable to the patient were discussed at this time. Risk of complications and/or morbidity and mortality is high given that acute and chronic pain poses a threat to life and bodily function if undertreated, poorly treated or with failure to maintain adequate treatment and timely followup. Given the serious and fluctuating nature of pain with extensive consideration for whenever pain changes, there always remains the possibility of prolonged functional impairment requiring constant patient reassessment and high-level medical decision making. The amount and complexity of data reviewed is high given that patient labs, radiology reports, and other test were obtained, reviewed and summarized as applicable from the physician portal and/or outside medical records. Pertinent positive and negative findings were considered in medical decision-making. [facility] Other 03-01-2022 Evaluation note* Encounter Date Diagnosis Assessment Notes Treatment Notes Treatment Clinical Notes Jan, Lumbar degenerative disc disease (ICD-10 - M51.36) With regard to her decompression the patient is doing very well, having some residual S1 numbness. She is walking well but has left hip pain secondary to the trochanter and probably the hip joint. I would recommend a trochanteric injection and if incomplete relief a trial intra-articular left hip injection I believe this is the source of most of her pain. I will refer her to pain management for this injection. I think her radicular symptoms have almost completely gone away. Once this is done I think therapy would be appropriate I will see her back in 8 weeks Jan, Lumbar radiculopathy (ICD-10 - M54.16) Jan, Trochanteric bursitis of left hip (ICD-10 - M70.62) [facility] Other 01-11-2022 Evaluation note* Encounter Date Diagnosis Assessment Notes Treatment Notes Treatment Clinical Notes Nov, Head congestion (ICD-10 - R09.81) Nov, Acute non-recurrent maxillary sinusitis (ICD-10 - J01.00) Due to the fact the symptoms have been going on for over a 10 days an antibiotic will be started and patient is instructed to finish the entire course of it. She was also instructed to use OTC medications like Mucinex and do nasal saline flushes. She was instructed that she should start feeling better within the next 5 days and if not she should return or call. She agrees to the treatment plan and voice understanding. Nov, Wheezing (ICD-10 - R06.2) [facility] Other 12-28-2021 Evaluation note* Encounter Date Diagnosis Assessment Notes Treatment Notes Treatment Clinical Notes Oct, Lumbar degenerative disc disease (ICD-10 - M51.36) At 1 month postop the patient is doing well with good relief of left leg pain. She is much better than when she was having problems prior to surgery. 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 Patient understands and agrees. She declines physical therapy. She is very happy with her progress I'll see her again in 2 months Oct, Lumbar radiculopathy (ICD-10 - M54.16) [facility] Other 12-05-2021 Evaluation note* Encounter Date Diagnosis Assessment Notes Treatment Notes Treatment Clinical Notes Oct, Contact with and (suspected) exposure to other viral communicable diseases (ICD-10 - Z20.828) Oct, COVID-19 virus infection (ICD-10 - U07.1) Today you tested positive for the COVID virus. This mean you need to follow all CDC quarantine guidelines found at [email or web address]. It is important to rest, increase fluids, and stay at home. Contact PCP and inform them of results. Medications like Mucinex, Cepacol, Tylenol, saline nasal spray are over the counter medications that can help with the symptoms. Current guidelines include staying home for at least 10 days, having no fever above 100.4 for 24 hours without medication and having significant improvement of symptoms before you are allowed to stop your quarantine. Contact primary care and ask for guidance is essential to follow up. Oct, Acute non-recurrent pansinusitis (ICD-10 - J01.40) Even though patient is positive for Covid, she is at day 7 of her symptoms. Patient states that she is at risk for sinus infections and I believe she is trending towards an acute sinusitis. With this in mind, and due to her recent back surgery, I feel it is reasonable to start her on antibiotics for her sinus infection and also place her on 5 days of 40 mg of prednisone daily. She also appears to have a mild asthma exacerbation. She is encouraged to drink plenty of fluids and follow-up with her primary doctor. Patient understands and agrees with the plan. Oct, Other Additional time spent conducting pre-visit phone call, screening for symptoms, instructions on social distancing, application and removal of PPE, and cleaning of examination room, equipment and supplies was preformed. Patient education given for testing methodology and results. Patient care instructions given in writting by [facility] document. [facility] Other 11-17-2021 Evaluation note* Encounter Date Diagnosis Assessment Notes Treatment Notes Treatment Clinical Notes Sep, Mixed hyperlipidemia (ICD-10 - E78.2) [facility] Other 10-23-2021 Evaluation note* Encounter Date Diagnosis Assessment Notes Treatment Notes Treatment Clinical Notes Aug, Acute non-recurrent maxillary sinusitis (ICD-10 - J01.00) Advised patient that rapid covid antigen test today in office was negative. Will tx today for bacterial sinusitis based on physical exam and duration of symptoms. Reviewed allergies and recent antibiotic use. Take antibiotic as prescribed, complete entire course of therapy even if symptoms resolve. Supportive care as directed, push fluids and rest, OTC cold medications as directed on packagin, Tylenol and/or Motrin as directed for discomfort/fever, warm moist compress over sinuses several times a day, cool mist humidification, nasal saline spray as directed. Symptoms should improve in the next 3 days, if symptoms persist follow up with PCP. Immediate eval for warning s/sx as discussed. Patient verbalizes understanding and is agreeable to treatment plan Aug, Strain of left supraspinatus muscle, initial encounter (ICD-10 - S46.812A) Discussed dx with patient. Take medications as directed. Use muscle relaxer at night time as it may cause drowsiness. May take during the day if needed but do not operate machinery or drive as it may cause drowsiness. Patient states that she needs something stronger for the pain. Advised patient to call PCP/Ortho doctor. May take OTC Tylenol, Warm compress, light stretches, and massage may also help with pain. Avoid strenuous activity, perform activity as tolerated, do not stay stationary for long periods of time as it might make symptoms worse. Follow up with PCP in 1 week. Immediate eval if chest pain, shortness of breath, fever, numbness or tingling, loss of bowel or bladder control, pain becomes severe, difficulty moving neck, back, arms or legs, dizziness, headache, or any other new or concerning symptoms. Patient verbalizes understanding and is agreeable to treatment plan Aug, Contact with and (suspected) exposure to other viral communicable diseases (ICD-10 - Z20.828) Aug, Other Additional time spent conducting pre-visit phone call, screening for symptoms, instructions on social distancing, application and removal of PPE, and cleaning of examination room, equipment and supplies was preformed. Patient education given for testing methodology and results. Patient care instructions given in writting by [facility] Care [facility] Home document [facility] Other 09-22-2021 Evaluation note* Encounter Date Diagnosis Assessment Notes Treatment Notes Treatment Clinical Notes Jul, Well adult exam (ICD-10 - Z00.00) 51-year-old female who is overall very healthy other than chronic back issues which she is planning to undergo surgery to help fix. She is currently on gabapentin 300 mg tablets 2 in the morning and 2 at night for her back pain issue that is prescribed by her neurologist and controlled by her neurosurgeon. She is due for updated lab work but she is going to be getting presurgical testing so I will only order lipid panel which she can have done at the same time she has her presurgical testing. I will review all of her lab work and as long as it is within normal limits she can follow-up in 1 year. She is up-to-date on her colon cancer screening and her breast cancer screening. 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 Overall this is very mild, it is probably secondary to her side effects of radiculopathy and abnormal gait Jul, Spinal stenosis, lumbar region without neurogenic claudication (ICD-10 - M48.061) I have independently reviewed the MRI of the lumbar spine and the plain x-ray and the reports. This patient has a left lateral recess stenosis secondary to disc and ligamentous hypertrophy at L4-5. She has clinically a left L5 radiculopathy with numbness in the left lateral calf, slight weakness of her foot, and significant radiculopathy with standing and walking. Because this is stenosis it will not be helped with physical therapy. She has had numerous sessions now with manipulation and treatment for this at her wellness center of at least 5 or 6 sessions that has not helped. I spent 50 minutes face to face with the patient reviewing imaging and discussing treatment options and risks and bemnefits of surgery. She is aware of the indication operation postop course risk benefits of surgery as well as limitations. She understands she can have an infection nerve damage spinal fluid leak and/or hematoma and paralysis. She would like to proceed with surgical decompression L4-5 on the left. Jul, Radiculopathy, lumbar region (ICD-10 - M54.16) [facility] Other evaluation noteNo InformationNort [facility] Other evaluation noteNo assessment information available [facility] Work Phone: Evaluation note* Diagnosis Onset Date Resolution Status Admit Date Influenza A acute December 21, 2024 4:37pm Contact with or suspected exposure to severe acute respiratory syndrome noneactive December 4:37pm [facility] Work Phone: History general Narrative - Reported* Type Description Date Medical History herpes Medical History asthma Medical History chronic low back pain Surgical History tonsillectomy Surgical History Hyseterectomy 2017 Surgical History Cholecystectomy 2019 Hospitalization History see surgical hx. [facility] Other History general Narrative - Reported* Type Description Date Medical History herpes Medical History asthma Medical History chronic low back pain Medical History sinusitis Medical History migraine headache Surgical History tonsillectomy Surgical History Hyseterectomy 2017 Surgical History Cholecystectomy 2019 Surgical History back surgery 09/30/2021 Hospitalization History see surgical hx. [facility] [email or web address] Other Reason for Referral Reason *Waiting for appt Evaluate and Treat L Hip Trochanteric Bursitis with Injection Diagnosis 1 Trochanteric bursiti s of left hip (M70.62) Referral Organization [facility] Ne urosurgery Referring Provider First Name Leon Referring Provider Last Name Lisa Referring Provider Specialty Neurologica l Surgery Referred Organization [facility] [place] Referred Provider Gordon Aaron Referred Address [address] [facility] [place] Referred Provider Specialty Pain Medicin e Referral Priority Routine General Notes Keyanna Araiza 022 03:18:10 PM >Received today and sent P2P Chief Complaint and Reason for Visit Chief Complaint Screening Chief Complaint Lump in neck Chief Complaint Admit Date Congestion December 21, 2024 4 :37pm Reason for Visit Admit Date Influenza A December 21, 2024 4 :37pm Contact with or suspected ex posure to severe acute respiratory syndrome December 21, 2024 4:37pm Family History Relationship Condition Age at Onset Recorded Date/T elidia father Heart disease Unknown Not Specified Malignant neoplasm of breast Unknown Relationship Condition Age at Onset Recorded Date/T elidia father Heart disease Unknown Not Specified Malignant neoplasm of breast Unknown father Unknown Relationship Condition Age at Onset Recorded Date/T elidia father Heart disease Unknown mother Malignant neoplasm of breast Unknown father Unknown Advance Directives Advance Directive Response Recorded Date/ Time Advance Directives No October 21, 2017 8:40am Advance Directive Response Recorded Date/ Time Advance Directives No October 21, 2017 7:40am Summary Purpose Additional Source Comments REASON FOR VISIT (unrecogniz ed section and content) EST PCPRef by Dr. Keenan fo r lumbar DDD, weakness of left leg; MRI in PACSSurgerypainNo Information#15 [employer], RUNNY NOSE, TEETH HURT, LEFT SHOULDER PAIN, HEADACHElab resultsFR ED4 wk po/ L4-5 decompression/09-30-2021#1 NOT VACCINATED, NO POS COVID EXP, SINUS PRESSURE, SNEEZY, COUGH, RUNNY NOSEFR EDSINUS INFECTION SYMPTOMSREF BY DR PUENTE FOR TROCHANTERIC BURSITIS OF LEFT HIP3 mo po DecompressionPain Medicine Office Notessinus infectionFYIMED REQUESTbelieves it could be bronchitis, she says that when she coughs it hurts behind her breasts, sinus pressure, no fever no bodyaches or chills.No InformationChest congestionNECK PAIN, LEFT SIDE OF HER BODY IS STIFF AND ARM GOES NUMB AND HER BACK GOES OUT AND AFTER EATING SHE HAS DIARRHEAXR resultsL shoulder and neck paininjectionClinical Acute IllnessNo InformationNo InformationSINUS CONGESTION Care Teams (unrecognized sec tion and content) Team Status: Inactive Member Role Status Dates Referral Self Attending Provider Active Lv Carty , DO Primary Care Provider Active Team Status: Active Member Role Status Dates Lv Carty , DO Primary Care Provider Active Team Status: Inactive Member Role Status Dates Lv Carty , DO Primary Care Provider Active Yovani Hurd APRN Attending Provider Active Team Status: Inactive Member Role Status Dates Lv Carty , DO Primary Care Provider, Referring Provider Active Referral Self Attending Provider Active Team Status: Inactive Member Role Status Dates Lv Carty , DO Primary Care Provider, Attending Provider Active Team Status: Inactive Member Role Status Dates Lv Carty , DO Primary Care Provider Active Start: March 19, 2024 End: March 19, 2024 Yovani Hurd APRN Attending Provider Active Start: March 19, 2024 End: March 19, 2024 Team Status: Inactive Member Role Status Dates Lv Carty , Primary Care Provider Active Start: June 18, 2024 End: June 18, 2024 Referral Self Attending Provider Active Start: Alfonzo 2023 End: June 18, 2024 Team Status: Inactive Member Role Status Dates Lv Carty , DO Primary Care Provider Active Start: December 21, 2024 End: December 21, 2024 Maryann Krueger APRN Attending Provider Active S tart: December 21, 2024 End: December 21, 2024 Goals (unrecognized section and content) Goals may be documented in a n alternate section INFORMATION SOURCE (unrecogn ized section and content) DATE CREATED AUTHOR 11/16/2022 [facility] DATE CREATED AUTHOR AUTHOR'S ORGANIZ ATION 11/14/2023 [facility] DATE CREATED AUTHOR AUTHOR'S ORGANIZ ATION 06/21/[address] [facility] DATE CREATED AUTHOR AUTHOR'S ORGANAMBROCIO ATION 06/24/2024 [facility] DATE CREATED AUTHOR AUTHOR'S ORGANAMBROCIO ATION 10/12/2024 [facility] FOR RECORDS PERTAINING TO PATIENTS WHO ARE OR HAVE BEEN ENROLLED IN A CHEMICAL DEPENDENCY/SUBSTANCEABUSE PROGRAM, SOME INFORMATION MAY BE OMITTED. This clinical summary was aggregated from multiple sources. Caution should be exercised in using it in the provision of clinical care. This summary normalizes information from multiple sources, and as a consequence, information in this document may materially change the coding, format and clinical context of patient data. In addition, data may be omitted in some cases. CLINICAL DECISIONS SHOULD BE BASED ON THE PRIMARY CLINICAL RECORDS. [email or web address] provides no warranty or guarantee of the accuracy or completeness of information in this document.
--- NOTE | 2025-04-23 07:51 | XR_ITS ---
The [address] [address] Patient Name: GABINO NUNO MRN: [id number] date: 1970 Sex: F Assigned Patient Location: LAB Current Patient Location: LAB Accession/Order Number: [id number] Exam Date: 04/23/2025 08:43 Report Date: 04/23/2025 08:46 At the request of: OSCAR SWEET Procedure: XR cervical spine 2-3V CERVICAL SPINE - 3 views: CLINICAL HISTORY: Neck pain for the past 6 months with radiation down the arms. No injury. Anterior lump. AP, lateral and odontoid views were obtained. A marker was placed at site of patient's lump. There is no evidence of compression fracture or displacement. There is mild endplate spurring, greatest posteriorly at C5-6. There is minor facet disease. The atlantoaxial relationship is maintained. There is no prevertebral soft tissue swelling. The BB marker overlies the head of the left clavicle where there may be some degenerative change. There are no other obvious acute findings within limits of the available views. XR/XR cervical spine 2-3V IMPRESSION: DEGENERATIVE CHANGES, DESCRIBED. Impression dictated by: Tracey Carlson M.D. 04/23/2025 8:46 AM Dictation Location: [place] [address] Electronically authenticated by: [id number] Y Date: 04/23/2025 08:46
[2025-04-23 08:16] LABS: Estimated Average Glucose 126 mg/dL
[2025-04-23 08:28] LABS: Alanine Aminotransferase 26 U/L (14-59); Albumin Globulin Ratio 0.8; Albumin Level 3.5 g/dL (3.4-5.0); Alkaline Phosphatase 84 U/L (46-116); Aspartate Amino Transferase 16 U/L (15-37); BUN Creatinine Ratio 20.5; Bilirubin Total 0.5 mg/dL (0.2-1.0); Calcium 9.1 mg/dL (8.5-10.1); Carbon Dioxide 26.2 mmol/L (21.0-32.0); Chloride 103 mmol/L (98-107); Chol HDL Ratio 4.5; Cholesterol 217 mg/dL (<=200); Estimated GFR (African America >60 (>=60 mL/min/1.73m^2); Estimated GFR (Non-African Ame >60 (>=60 mL/min/1.73m^2); Free T3 2.71 pg/mL (2.18-3.98); Globulin 4.5 g/dL; Glucose 125 mg/dL (74-106); HDL Cholesterol 48 mg/dL (40-60); Potassium 4.2 mmol/L (3.5-5.1); Sodium 140 mmol/L (136-145); Thyroid Stimulating Hormone 2.943 uIU/mL (0.358-3.740); Triglycerides 139 mg/dL (<=150); VLDL CHOLESTEROL 27.8 mg/dL
[2025-04-23 08:34] LABS: Basophils Absolute Auto 0.1 10^3/uL (0.0-0.1); Basophils Percent Auto 0.7 % (0.2-2.0); Eosinophils Absolute Auto 0.6 10^3/uL (0.0-0.7); Eosinophils Percent Auto 5.9 % (0.9-7.0); Hematocrit 43.2 % (36.0-48.0); Hemoglobin 14.3 g/dL (12.0-16.0); Immature Granulocytes Abs Auto 0.02 10^3/uL (0.00-0.03); Immature Granulocytes Pct Auto 0.2 % (0.0-0.5); Lymphocytes Absolute Auto 2.6 10^3/uL (1.2-3.8); Lymphocytes Percent Auto 25.7 % (20.5-60.0); Mean Corpuscular HGB Conc 33.1 g/dL (29.9-35.2); Mean Corpuscular Hemoglobin 30.4 pg (26.7-34.0); Mean Corpuscular Volume 91.7 fL (81.0-99.0); Mean Platelet Volume 9.5 fL (9.5-13.5); Monocytes Absolute Auto 0.7 10^3/uL (0.3-0.8); Monocytes Percent Auto 6.6 % (1.7-12.0); Neutrophils Absolute Auto 6.1 10^3/uL (1.4-6.5); Neutrophils Percent Auto 60.9 % (43.0-75.0); Platelet Count 331 10^3/uL (150-450); Red Blood Count 4.71 10^6/uL (4.20-5.40); Red Cell Distribution Width 12.8 % (11.0-15.0)
[2025-04-24 09:09] LABS: Insulin 22.9 uIU/mL (2.6-24.9)
== END 2025-04-23 07:28 | disposition home or self-care (01) ==
LOC: LAB 07:31
PROVIDERS: PCP Nurse Practitioner Family; Visit Provider Nurse Practitioner Family
DX: Z00.00 Encounter for general adult medical examination without abnormal findings (principal); M54.2 Cervicalgia; R22.1 Localized swelling, mass and lump, neck; R22.9 Localized swelling, mass and lump, unspecified
CPT/HCPCS: 36415; 72040; 80053; 80061; 82306; 83036; 83525; 83540; 84436; 84443; 84481; 85025

== ENCOUNTER 2025-04-30 06:53 | Outpatient (OUT) | payer OTHER, SELFPAY ==
--- OUTSIDE RECORDS SUMMARY | 2021-07-23 04:45 | XMS_ITS | Continuity of Care Document ---
Author Organization [facility] Address [address] [place] [address] Phone Care Team Providers Care Chef Kitchen Manager Name Role Phone Colton Stevens Unavailable Unavailable [...] Diagnoses Date Provider Providers Copied on Encounter [facility], [address] [place] [address], [id number] , tel: [phone] [facility] lumbar spine (chief complaint) lumbar spine (chief complaint) Segmental and somatic dysfunction of lumbar regionRadiculopathy, lumbar regionOther intervertebral disc degeneration, lumbar regionSegmental and somatic dysfunction of cervical region Jul-0 1 Rodney Segura. [address] [place] [address], [id number] , [place]. tel: [phone] [facility], [address] [place] [address], [id number] , tel: [phone] [facility] lumbar spine (chief complaint) lumbar spine (chief complaint) Segmental and somatic dysfunction of lumbar regionRadiculopathy, lumbar regionOther intervertebral disc degeneration, lumbar regionSegmental and somatic dysfunction of cervical region 1 Rodney Segura. [address] [place] [address], [id number] , [place]. tel: [phone] [facility], [address] [place] [address], [id number] , [place] tel: [phone] [facility] lumbar spine (chief complaint) lumbar spine (chief complaint) Segmental and somatic dysfunction of lumbar regionRadiculopathy, lumbar regionOther intervertebral disc degeneration, lumbar regionSegmental and somatic dysfunction of cervical region 1 Rodney Segura. [address] [place] [address], [id number] , [place]. tel: [phone] [facility], [address] [place] [address], [id number] , [place] tel: [phone] [facility] lumbar spine (chief complaint) lumbar spine (chief complaint) Segmental and somatic dysfunction of lumbar regionRadiculopathy, lumbar regionOther intervertebral disc degeneration, lumbar regionSegmental and somatic dysfunction of cervical region 1 Rodney Segura. [address] [place] [address], [id number] , [place]. tel: [phone] [facility], [address], [place], [id number] , [place] tel: [phone] [facility] cervical spine (chief complaint) cervical spine (chief complaint) Segmental and somatic dysfunction of lumbar regionOther intervertebral disc degeneration, lumbar regionSegmental and somatic dysfunction of cervical region 1 Rodney Segura. [address] [place] [address], [id number] , [place]. tel: [phone] [facility], [address] [place] [address], [id number] , [place] tel: [phone] [facility] cervical spine (chief complaint) cervical spine (chief complaint) Segmental and somatic dysfunction of cervical regionCervicalgiaSegm ental and somatic dysfunction of lumbar regionOther intervertebral disc degeneration, lumbar region 1 Rodney Segura. [address] [place] [address], [id number] , [place]. tel: [phone] [facility], [address] [place] [address], [id number] , [place] tel: [phone] [facility] lumbar spine (chief complaint) lumbar spine (chief complaint) Segmental and somatic dysfunction of lumbar regionOther intervertebral disc degeneration, lumbar regionSegmental and somatic dysfunction of cervical region 0 Rodney Segura. [address] [place] [address], [id number] , [place]. tel: [phone] [facility], [address] [place] [address], [id number] , [place] tel: [phone] [facility] cervical spine (chief complaint) cervical spine (chief complaint) Segmental and somatic dysfunction of cervical regionHeadache, unspecifiedSegmental and somatic dysfunction of lumbar regionOther intervertebral disc degeneration, lumbar region 0 Rodney Segura. [address] [place] [address], [id number] , . tel: [phone] [facility], [address] [place] [address], [id number] , [place] tel: [phone] [facility] lumbar spine (chief complaint) lumbar spine (chief complaint) Segmental and somatic dysfunction of lumbar regionLow back painOther intervertebral disc degeneration, lumbar regionSegmental and somatic dysfunction of cervical region 0 Rodney Segura. [address], [place], [id number] , [place]. tel: [phone] [facility], [address] [place] [address], [id number] , [place] tel: [phone] [facility] lumbar spine (chief complaint) lumbar spine (chief complaint) Segmental and somatic dysfunction of lumbar regionLow back painOther intervertebral disc degeneration, lumbar regionSegmental and somatic dysfunction of cervical region 0 Rodney Segura. [address] [place] [address], [id number] , [place]. tel: [phone] [facility], [address] [place] [address], [id number] , tel: [phone] [facility] lumbar spine (chief complaint) lumbar spine (chief complaint) Segmental and somatic dysfunction of lumbar regionLow back painOther intervertebral disc degeneration, lumbar regionSegmental and somatic dysfunction of cervical region 0 Rodney Segura. [address] [place] [address], [id number] , [place]. tel: [phone] [facility], [address] [place] [address], [id number] , [place] tel: [phone] [facility] lumbar spine (chief complaint) lumbar spine (chief complaint) Segmental and somatic dysfunction of lumbar regionLow back painOther intervertebral disc degeneration, lumbar regionSegmental and somatic dysfunction of cervical region 0 Rodney Segura. [address] [place] [address], [id number] , [place]. tel: [phone] [facility], [address] [place] [address], [id number] , [place] tel: [phone] [facility] lumbar spine (chief complaint) lumbar spine (chief complaint) Segmental and somatic dysfunction of lumbar regionLow back painOther intervertebral disc degeneration, lumbar regionSegmental and somatic dysfunction of cervical region 0 Rodney Segura. [address], [place], [id number] , [place]. tel: [phone] [facility], [address], [place], [id number] , [place] tel: [phone] [facility] lumbar spine (chief complaint) lumbar spine (chief complaint) Segmental and somatic dysfunction of lumbar regionLow back painOther intervertebral disc degeneration, lumbar regionSegmental and somatic dysfunction of cervical region 0 Rodney Segura. [address], [place], [id number] , [place]. tel: [phone] [facility], [address] [place] [address], [id number] , [place] tel: [phone] [facility] lumbar spine (chief complaint) lumbar spine (chief complaint) Segmental and somatic dysfunction of lumbar regionLow back painOther intervertebral disc degeneration, lumbar regionSegmental and somatic dysfunction of cervical region 0 Rodney Segura. [address] [place] [address], [id number] , [place]. tel: [phone] [facility], [address] [place] [address], [id number] , [place] tel: [phone] [facility] lumbar spine (chief complaint) lumbar spine (chief complaint) Segmental and somatic dysfunction of lumbar regionLow back painOther intervertebral disc degeneration, lumbar regionSegmental and somatic dysfunction of cervical region 0 Rodney Segura. [address] [place] [address], [id number] , [place]. tel: [phone] [facility], [address] [place] [address], [id number] , [place] tel: [phone] [facility] lumbar spine (chief complaint) lumbar spine (chief complaint) Segmental and somatic dysfunction of lumbar regionLow back painSegmental and somatic dysfunction of cervical region 0 Rodney Segura. [address] [place] [address], [id number] , [place]. tel: [phone] [facility], [address] [place] [address], [id number] , [place] tel: [phone] [facility] lumbar spine (chief complaint) lumbar spine (chief complaint) Segmental and somatic dysfunction of lumbar regionLow back painOther intervertebral disc degeneration, lumbar regionSegmental and somatic dysfunction of cervical region 6 0 Rodney Segura. [address], [place], [id number] , [place]. tel: [phone] [facility], [address], [place], [id number] , [place] tel: [phone] [facility] lumbar spine (chief complaint) lumbar spine (chief complaint) Segmental and somatic dysfunction of lumbar regionLow back painOther intervertebral disc degeneration, lumbar regionSegmental and somatic dysfunction of cervical region 8 9 Rodney Segura. [address] [place] [address], [id number] , [place]. tel: [phone] [facility], [address] [place] [address], [id number] , [place] tel: [phone] [facility] lumbar spine (chief complaint) lumbar spine (chief complaint) Segmental and somatic dysfunction of lumbar regionLow back painSegmental and somatic dysfunction of cervical region 9 Rodney Segura. [address] [place] [address], [id number] , [place]. tel: [phone] [facility], [address] [place] [address], [id number] , [place] tel: [phone] [facility] cervical spine (chief complaint) cervical spine (chief complaint) Segmental and somatic dysfunction of cervical regionHeadacheSegment al and somatic dysfunction of lumbar regionOther intervertebral disc degeneration, lumbar region 0201 9 Rodney Segura. [address] [place] [address], [id number] , [place]. tel: [phone] [facility], [address] [place] [address], [id number] , [place] tel: [phone] [facility] cervical spine (chief complaint) cervical spine (chief complaint) Segmental and somatic dysfunction of cervical regionHeadacheSegment al and somatic dysfunction of lumbar regionOther intervertebral disc degeneration, lumbar region 3-201 9 Rodney Segura. [address], [place], [id number] , [place]. tel: [phone] [facility], [address], [place], [id number] , [place] tel: [phone] [facility] lumbar spine (chief complaint) lumbar spine (chief complaint) Segmental and somatic dysfunction of lumbar regionOther intervertebral disc degeneration, lumbar regionSegmental and somatic dysfunction of cervical region 0 6201 9 Rodney Segura. [address], [place], [id number] , [place]. tel: [phone] [facility], [address] [place] [address], [id number] , [place] tel: [phone] [facility] lumbar spine (chief complaint) lumbar spine (chief complaint) Segmental and somatic dysfunction of lumbar regionOther intervertebral disc degeneration, lumbar regionSegmental and somatic dysfunction of cervical regionHeadache 4 9 Rodney Segura. [address], [place], [id number] , [place]. tel: [phone] [facility], [address], [place], [id number] , [place] tel: [phone] [facility] lumbar spine (chief complaint) lumbar spine (chief complaint) Segmental and somatic dysfunction of lumbar regionOther intervertebral disc degeneration, lumbar regionSegmental and somatic dysfunction of cervical regionHeadache 3 0-201 9 Rodney Segura. [address] [place] [address], [id number] , [place]. tel: [phone] [facility], [address] [place] [address], [id number] , [place] tel: [phone] [facility] lumbar spine (chief complaint) lumbar spine (chief complaint) Segmental and somatic dysfunction of lumbar regionOther intervertebral disc degeneration, lumbar regionSegmental and somatic dysfunction of cervical regionHeadache 2 8-201 9 Rodney Segura. [address] [place] [address], [id number] , [place]. tel: [phone] [facility], [address], [place], [id number] , [place] tel: [phone] [facility] lumbar spine (chief complaint) lumbar spine (chief complaint) Segmental and somatic dysfunction of lumbar regionOther intervertebral disc degeneration, lumbar regionSegmental and somatic dysfunction of cervical regionHeadache 3-201 9 Rodney Segura. [address], [place], [id number] , [place]. tel: [phone] [facility], [address], [place], [id number] , [place] tel: [phone] [facility] lumbar spine (chief complaint) lumbar spine (chief complaint) Segmental and somatic dysfunction of lumbar regionOther intervertebral disc degeneration, lumbar regionSegmental and somatic dysfunction of cervical regionHeadache 1- 9 Rodney Segura. [address] [place] [address], [id number] , [place]. tel: [phone] [facility], [address], [place], [id number] , [place] tel: [phone] [facility] lumbar spine (chief complaint) lumbar spine (chief complaint) Segmental and somatic dysfunction of lumbar regionOther intervertebral disc degeneration, lumbar regionSegmental and somatic dysfunction of cervical regionHeadache 8 9 Rodney Segura. [address] [place] [address], [id number] , [place]. tel: [phone] [facility], [address] [place] [address], [id number] , [place] tel: [phone] [facility] No Information 3 Visci DO Yovani. [address] [place] [address], [id number] , [place]. tel: [phone] [facility], [address] [place] [address], [id number] , [place] tel: [phone] [facility] Screening examination for pulmonary tuberculosis 3 Visci DO Yovani. [address], [place], [id number] , . tel:[phone] Family History Family Member Type Diagnosis Age At Onset No Information Payers Payer name Insurance type Covered democrat ID [employer] (s) [id number] Social History Type Description Quantity Date Captured [...]
--- OUTSIDE RECORDS SUMMARY | 2024-12-11 09:30 | XMS_ITS ---
Author Organization [facility] in [place] Address [address] [place] [address] Care Team Providers Care Assistant Project Engineer Name Role Phone Carol Miranda Primary Care Provider REASON FOR VISIT sinus infection Encounters Encounter Location Date Provider Diagnosis [facility] [address] [place] [address] 12/11/2024 Carol Miranda Plan Of Treatment Next Appt Details Provider Name:Carol ventura, 07/23/2025 08:30:00 AM, [address] [place], [address], Progress Notes * Jason NUNOBettyB: 9 (55 yo F)Acc No.[id number]:12/11/2024 UNLOCKED PROGRESS NOTE Progress Note Patient: Mindi ORTIZ Provider: Олег MAC), RAMP SUPERVISOR :1970 A ge:54 Y S ex:Female Date:12/11/2024 Address:[address] [place] [address], [facility] Subjective: * Chief Complaints: * 1 . Sinus infection. * Medical History: Objective: * Vitals: Assessment: Plan: * Treatment: * * Electronic signature of Estrellita Acosta NP, BAG MENDER.RAMP [id number] on 04/30/2025 at 06:55 AM EDT Sign off status: Pending Visit Status: C ANC (Cancelled) * Provider: Олег MAC), RAMP SUPERVISOR Date: 0 12/11/2024 Generated for Tino peña/Sebastian/Chance on: 0 04/30/2025 06:55 AM EDT
--- OUTSIDE RECORDS SUMMARY | 2025-04-22 04:30 | XMS_ITS ---
Author Organization [facility] in [place] Address [address] [place] [address] Care Team Providers Care Tower Hoist Operator Name Role Phone Carol Miranda Primary Care Provider Allergies Allergen (clinical drug ingredient) Drug/Non Drug Allergy documented on EMR Reaction Allergy Type Onset Date Status amoxicillin Amoxicillin hives Drug Allergy Act crystal Results Component Value Reference Range Notes XR cervical spine 2-3V Reviewed date:04/23/2025 09:50:12 AM Interpretation: Performing Lab: Notes/Report: Source Facility: [place] [address] XRay Report Signed Patient: GABINO NUNO MR#: [id number] : 1970 Acct:[id number] Age/Sex: 55 / F ADM Date: 04/23/25 Loc: LAB Attending Dr: CAROL MIRANDA Ordering Physician: CAROL MIRANDA Date of Service: 04/23/25 Procedure(s): XR cervical spine 2-3V Accession Number(s): [id number] cc: CAROL MIRANDA [place] [id number] Patient Name: GABINO NUNO MRN: [id number] date: 1970 Sex: F Assigned Patient Location: LAB Current Patient Location: LAB Accession/Order Number: [id number] Exam Date: 04/23/2025 08:43 Report Date: 04/23/2025 08:46 At the request of: CAROL MIRANDA Procedure: XR cervical spine 2-3V CERVICAL SPINE - 3 views: CLINICAL HISTORY: Neck pain for the past 6 months with radiation down the arms. No injury. Anterior lump. AP, lateral and odontoid views were obtained. A marker was placed at site of patient's lump. There is no evidence of compression fracture or displacement. There is mild endplate spurring, greatest posteriorly at C5-6. There is minor facet disease. The atlantoaxial relationship is maintained. There is no prevertebral soft tissue swelling. The BB marker overlies the head of the left clavicle where there may be some degenerative change. There are no other obvious acute findings within limits of the available views. XR/XR cervical spine 2-3V IMPRESSION: DEGENERATIVE CHANGES, DESCRIBED. Impression dictated by: Tracey Carlson M.D. 04/23/2025 8:46 AM Dictation Location: [place] [address] Electronically authenticated by: [id number] Y Date: 04/23/2025 08:46 Dictated By: Tracey Carlson M.D. Signed By: 04/23/25 0849 DD/ 0846 TD/TT: Daub Color Mixer: [address] [address] XRay Report Signed Patient: PEDRO NUNO MR#: [id number] : 1970 Acct:[id number] Age/Sex: 55 / F ADM Date: 04/23/25 Loc: LAB Attending Dr: CAROL MIRANDA Ordering Physician: CAROL MIRANDA Date of Service: 04/23/25 Procedure(s): XR cer vical spine 2-3V Accession Number(s): [id number] cc: CAROL MIRANDA [address] [address] Patient Name: GABINO NUNO MRN: [id number] date: 1970 Sex: F Assigned Patient Location: LAB Current Patient Location: LAB Accession/Order Numb er: [id number] Exam Date: 04/23/2025 08:43 Report Date: 04/23/2025 08:46 At the request of: CAROL MIRANDA Procedure: XR cervic al spine 2-3V CERVICAL SPINE - 3 views: CLINICAL HISTORY: Ne ck pain for the past 6 months with radiation down the arms. No injury. Anterior lump. AP, lateral and odon toid views were obtained. A marker was placed at site of patient's lump. Ther e is no evidence of compression fracture or displacement. There is mild endpla te spurring, greatest posteriorly at C5-6. There is minor facet disease. The a tlantoaxial relationship is maintained. There is no prevertebral soft ti ssue swelling. The BB marker overlies the head of the left clavicle where there may be some degenerative change. There are no other obvious acute findin gs within limits of the available views. X R/XR cervical spine 2-3V IMPRESSION: DEGENERATIVE CHANGES , DESCRIBED. Impression dictated by: Tracey Carlson M.D. 04/23/2025 8:46 AM Dictation Location: [place] [address] Electronically authe nticated by: [id number] Y Date: 04/23/2025 08:46 Dictated By: Tracey Carlson M.D. Signed By: 04/23/25 0849 DD/ 5 TD/TT: Daub Color Mixer: REASON FOR VISIT issues on body want to talk about, Sinus drainage, green- lost voice and is coming back- chest congestion, productive phlegm green in color- has been having to use her inhaler, Has been taking Tylenol and Sudafed for the sinuses Medications Medication SIG (Take, Route, Frequency, Duration) Notes Start Date End Date Status Omeprazole 40 MG 1 capsule 1/2 to 1 h our before morning meal Orally Once a day for 90 days 04/22/2025 Active Flonase Active Albuterol Sulfate HFA 108 (90 Base) MCG/ACT INHALE 1 PUFF INTO THE LUNGS EVERY 4 HOURS NEEDED FOR 30 DAYS for 30 Active Vitamin E 1000 UNIT as directed Orally 04/22/2025 Active Social History Tobacco Use: Social History Observation Description Date Details (start date - stop date) Never Smoker NA - NA Tobacco Use/Smoking Question Answer Notes Patient is a nonsmoker Problems Problem Type SNOMED Code ICD Code Onset Dates Problem Status W/U Status Risk Notes Problem Gastroesophageal reflux disease (514941583) GERD (gastroeso phageal reflux disease) (K21.9) Active confirmed Problem Neck pain (M54.2) Active confirmed Vital Signs Weight 207.4 lbs 04/22/2025 Height 65.5 in 04/22/2025 Blood pressure systolic 114 mm Hg 04/22/20 25 Blood pressure diastolic 72 mm Hg 025 BMI 33.98 kg/m2 04/22/2025 Encounters Encounter Location Date Provider Diagnosis [facility] [address] [place] [address] 04/22/2025 Carol Miranda Lump R22.9 ; Neck pain M54.2 ; GERD (gastroesophageal reflux disease) K21.9 and Wellness examination Z00.00 Assessments Encounter Date Diagnosis (ICD Code) Assessment Notes Treatment Notes Treatment Clinical Notes Section Notes 04/22/2025 Lump (ICD-10 - R22.9) 04/22/2025 Neck pain (ICD-10 - M54.2) 04/22/2025 GERD (gastroesophagea l reflux disease) (ICD-10 - K21.9) 04/22/2025 Wellness examination (ICD-10 - Z00.00) ROS done exam done sees obgyn for paps, mammograms Plan Of Treatment Medication Medication Name Sig Start Date Stop Date Notes Omeprazole 40 MG 1 capsule 1/2 to 1 h our before morning meal Orally Once a day for 90 days 04/22/2025 Treatment Notes Assessment Notes Wellness examination ROS done exam done sees obgyn for paps, mammograms Pending Test Test Name Order Date HEMOGLOBIN A1C (GLYCO) 04/22/2025 IRON, TOTAL 04/22/2025 LIPID PANEL (CHOL/TRIG/HDL/LDL) 04/22/20 25 VITAMIN D, 25 LEVEL (TOTAL) 04/22/2025 Insulin Level 04/22/2025 THYROID PANEL (T4/TSH/FREE T3) US SOFT TISSUE LIMITED AREA 04/22/2025 CMP (COMP [place]) w/eGFR CKD-EPI 2024 CBC WITH DIFF 04/22/2025 Next Appt Details Follow Up: prn,1 Year, Reaso n: Provider Name:Carol ventura, 07/23/2025 08:30:00 AM, [address] [facility], [facility], [place], [address], Progress Notes * Annika NUNOB: 9 (55 yo F)Acc No.[id number]:04/22/2025 Progress Note Patient: Gabino ORTIZ Provider: Олег Miranda ([facility]), DEMOLITION CRANE OPERATOR :1970 A ge:55 Y S ex:Female Date:04/22/2025 Address:[address] [place] [address] [address] Check In:08:16 AM ESTCheck O ut:09:10 AM EST Subjective: * Chief Complaints: * 1 . Issues on body want to talk about. 2. Sinus drainage, green- lost voice and is coming back- chest congestion, productive phlegm green in color- has been having to use her inhaler. 3. Has been taking Tylenol and Sudafed for the sinuses. * HPI: D epression Screening: PHQ-2 (2015 Edition) L ittle interest or pleasure in doing things??Not at all F eeling down, depressed, or hopeless? N ot at all T otal Score 0 Patient arrives with several complaints today. She suffers from chronis sinusitis and is just recovering form laryngitis, and cough with sinus drainage. She also states that she gets mucoud that refluxes up her throat and that gets stuck in her chest. Patient also has concerns for a spot on her left clavicle that sometimes appears swollen and sore. She states her bilateral upper arms also go numb from time to time and she feels a tightness from her arms across her chest and up into her throat. Lastly she states she randomly get nauseated adn does think she may be lactose intolerant as after she eats mainly dialry, she has explosive diarrhea. * ROS: E ENT: hearing changes d enies. v isual changes d enies.?non-healing mouth sores d enies. s wollen glands or neck lumps a dmits left side, clavicle area . h oarseness a dmits. s ore throat d enies at this time but did have a sore throat last week.. d ifficulty swallowing a dmits, states mucous refluxes and makes swallowing difficult at times.. n ose bleeds d enies. n samantha congestion a dmits. e ar ache d enies. e ar discharge d enies. e ye pain d enies. v ision loss d enies. G eneral/Constitutional: Sweats: D enies. F atigue d enies. F atigue or Weakness d enies. F ever or Chills d enies. C ardiovascular: Shortness of Breath w/lying flat d enies. L ightheadedness/dizziness d enies. C hest tightness/ heavy pressure a dmits it spreads fro her arms to her throat and all across her chest. This has been on and off for almost a year.. S welling of legs, ankles, or feet d enies. W aking up with shortness of breath d enies. C hest pain d enies. P alpitations d enies. R espiratory: Chest congestion a dmits. C oughing up blood d enies. D ifficulty breathing d enies. P roductive cough?admits, productive, small amount, Green. S putum production a dmits. W heezing a dmits, worse at night, intermittently. M usculoskeletal: Back pain d enies. J oint Stiffness d enies. M uscle cramps d enies. W eakness of muscles d enies. A rthritis d enies. M uscle aches d enies. * Active Problem List J32.9 Chronic sinusitis Modified On:07/31/2024/U Status:confirmed J45.909 Asthma Modified On:10/19/2024/U Status:confirmed M54.2 Neck pain Modified On:04/22/2025/U Status:confirmed K21.9 GERD (gastroesophage al reflux disease) Modified On:04/22/2025/U Status:confirmed * Medical History: G ERD (gastroesophageal reflux disease). * Surgical History: p artial hysterectomy 2015, tonsillectomy , gall bladder removed . * Hospitalization/Major Diagno stic Procedure: D enies Past Hospitalization. * Family History: F ather: , Heart Attack, diagnosed with Unspecified heart disease. M other: , breast cancer, thyroid disease, diagnosed with Other malignant neoplasm of unspecified site. Brother(s): alive, diagnosed with Unspecified essential hypertension, Unspecified heart disease.?Sister(s): alive, diagnosed with Diabetes mellitus without mention of complication, type II or unspecified type, not stated as uncontrolled. P aternal aunt: breast cancer, , cancer. 2 brother(s) , 3 sister(s) . . * Social History: T obacco Use: T obacco Use/Smoking P atient is a n onsmoker * Medications: T aking Albuterol Sulfate HFA 108 (90 Base) MCG/ACT Aerosol Solution INHALE 1 PUFF INTO THE LUNGS EVERY 4 HOURS NEEDED FOR 30 DAYS , Taking Flonase , Taking Vitamin E 1000 UNIT Capsule as directed Orally , Discontinued Famotidine 20 MG Tablet 1 tablet at bedtime Orally Once a day , Medication List reviewed and reconciled with the patient * Allergies: A moxicillin: hives - Allergy. Objective: * Vitals: W t:207.4lbs, Ht: 65.5 in, BP:114/72mm Hg, BMI:33.98Index, Ht-cm: 166.37 cm, Wt- k.08 kg. * Examination: P hysical Exam: GENERAL: w ell developed, well nourished, in no acute distress. HEAD: n ormocephalic/atraumatic. EYES: p upils equal, round and reactive to light, conjunctivae and sclerae normal. EARS: n o deformity or lesion of external ear, canals and TM appear normal bilaterally, TM's intact, not inflamed with normal light reflex, hearing grossly normal to conversational speech. NOSE: n o deformity, discharge, inflammation, or lesions.? MOUTH: m ucous membranes moist, normal oropharynx and posterior pharynx without lesions or exudates, tongue normal, dentition normal. NECK: n binu supple, no masses or palpable cervical nodes, trachea midline, thyroid without nodules, masses, tenderness, or enlargement. CHEST: n o chest wall deformity, no chest wall tenderness.? Slight tenderness noted to the left side clavicle area.. LUNGS: n ormal respiratory effort and clear to auscultation, no wheezes, rales, or rhonchi, good air exchange. CARDIO: r egular rate and rhythm, normal S1 and S2, nor murmur, rub, or gallop. PULSES: n ormal capillary refill. ABDOMEN: s oft, non-distended, non-tender, no masses. MUSCULOSKELETAL: n o deformity or scoliosis noted, normal range of motion, joints normal, no erythema, edema, effusion, or ecchymosis. EXTREMITY: n o clubbing, cyanosis, edema, or deformity with normal ROM in both upper and lower bilateral extremities. NEUROLOGIC: g rossly normal. SKIN: n o rashes, ulcerations, or suspicious lesions. LYMPH NODES: n o cervical adenopathy, nodes normal. MENTAL STATUS: a lert and oriented x3, normal mood and affect. Assessment: * Assessment: 1. L ump - R22.9 (Primary) 2 . N binu pain - M54.2 3 . G ERD (gastroesophageal reflux disease) - K21.9 4 . [facility] Plan: * Treatment: 2.?Neck pain?Imaging: XR cervical spine 2-3V3.?GERD (gastroesophageal reflux disease)? Start Omeprazole Capsule Delayed Release, 40 MG, 1 capsule 1/2 to 1 hour before morning meal, Orally, Once a day, 90 days, 90, Refills 0.??4.?Wellness examination?LAB: HEMOGLOBIN A1C (GLYCO) ?LAB: IRON, TOTAL ?LAB: LIPID PANEL (CHOL/TRIG/HDL/LDL) ?LAB: VITAMIN D, 25 LEVEL (TOTAL) ?LAB: Insulin Level ?LAB: THYROID PANEL (T4/TSH/FREE T3) ?LAB: CMP (COMP [place] [facility]) w/eGFR CKD-EPI ?LAB: CBC WITH DIFF Notes: ROS done exam done sees obgyn for paps, mammograms?? * Preventive Medicine: Screenings/Counseling: B PA ACTION PLAN Above Normal BMI Follow-up D ietary management education, guidance, and counseling * Follow Up: p luis m,1 Year * * Electronically signed by Leelee Miranda , METAL CAN INSPECTOR, GLOBAL UPSTREAM MARKETING MANAGER.DEMOLITION CRANE [id number] on 04/22/2025 at 11:12 AM EDT Sign off status: Completed Visit Status: C HK (Check Out) true * Provider: Олег Miranda ([facility]), DEMOLITION CRANE OPERATOR Date: 0 04/22/2025 Generated for Tino peña/Sebastian/Daelitting on: 0 04/30/2025 06:55 AM EDT History and Physical Notes * HPI (History of Present Illness) Category Sub-Category Detail Notes Category Not es Depression Screening PHQ-2 (2015 Edition) Little interest or pleasure in doing things?: Not at all Patient arrives with several complaints today. She suffers from chronis sinusitis and is just recovering form laryngitis, and cough with sinus drainage. She also states that she gets mucoud that refluxes up her throat and that gets stuck in her chest. Patient also has concerns for a spot on her left clavicle that sometimes appears swollen and sore. She states her bilateral upper arms also go numb from time to time and she feels a tightness from her arms across her chest and up into her throat. Lastly she states she randomly get nauseated adn does think she may be lactose intolerant as after she eats mainly dialry, she has explosive diarrhea. Feeling down, depressed, or hopeless?: N ot at all Total Score: 0 Examination Category Sub-Category Detail Notes Category Not es Physical Exam GENERAL: well developed, well nourished, in no acute distress HEAD: normocephalic/atraum atic EYES: pupils equal, round and reactive to light, conjunctivae and sclerae normal EARS: no deformity or lesi on of external ear, canals and TM appear normal bilaterally, TM's intact, not inflamed with normal light reflex, hearing grossly normal to conversational speech NOSE: no deformity, discha rge, inflammation, or lesions MOUTH: mucous membranes betsy st, normal oropharynx and posterior pharynx without lesions or exudates, tongue normal, dentition normal NECK: neck supple, no mass es or palpable cervical nodes, trachea midline, thyroid without nodules, masses, tenderness, or enlargement CHEST: no chest wall deform ity, no chest wall tenderness. Slight tenderness noted to the left side clavicle area. LUNGS: normal respiratory e ffort and clear to auscultation, no wheezes, rales, or rhonchi, good air exchange CARDIO: regular rate and rhy thm, normal S1 and S2, nor murmur, rub, or gallop PULSES: normal capillary ref ill ABDOMEN: soft, non-distended, non-tender, no masses MUSCULOSKELETAL: no deformity or scol iosis noted, normal range of motion, joints normal, no erythema, edema, effusion, or ecchymosis EXTREMITY: no clubbing, cyanosi s, edema, or deformity with normal ROM in both upper and lower bilateral extremities NEUROLOGIC: grossly normal SKIN: no rashes, ulceratio ns, or suspicious lesions LYMPH NODES: no cervical adenopat hy, nodes normal MENTAL STATUS: alert and oriented x 3, normal mood and affect
--- OUTSIDE RECORDS SUMMARY | 2025-04-25 06:04 | XMS_ITS ---
Author Organization The [facility] in [place] Address [address] [place] [address] Care Team Providers Care Hadoop Analyst Name Role Phone Carol Miranda Primary Care Provider Reason For Referral Diagnosis 1 Neck pain (M54.2) Referral Organization [facility] Referring Provider First Name Carol Referring Provider Last Name Ruben Referring Provider [facility] Family [facility] icine Referred Provider Colton Oquendo Referred Provider Specialty Orthopedic S urgery Referral Priority Routine REASON FOR VISIT results- Encounters Encounter Location Date Provider Diagnosis [facility] [address] [place] [address] 04/25/2025 Carol Miranda Neck pain M54.2 ; Hyperlipidemia E78.5 and Prediabetes R73.03 Assessments Encounter Date Diagnosis (ICD Code) Assessment Notes Treatment Notes Treatment Clinical Notes Section Notes 04/25/2025 Neck pain (ICD-10 - M54.2) 04/25/2025 Hyperlipidemia (ICD-10 - E78.5) 04/25/2025 Prediabetes (ICD-10 - R73.03) Plan Of Treatment Pending Test Test Name Order Date GLYCOHEMOGLOBIN A1C 04/25/2025 LIPID PROFILE 04/25/2025 Referrals Referral Date Details 04/25/2025 04/25/2025, Colton sanchez Next Appt Details Provider Name:Carol ventura, 07/23/2025 08:30:00 AM, [address] [place], [address], Progress Notes * Logan NUNO: 9 (55 yo F)Acc No.[id number]:04/25/2025 Patient: Mindi ORTIZ :1970 A ge:55 Y S ex:Female Address:[address] [place] [address], [address] Subjective: * Chief Complaints: * R esults- * Medical History: * Surgical History: * Hospitalization/Major Diagno stic Procedure: * Medications: Objective: * Vitals: * Physical Examination: Assessment: * Assessment: 1. N binu pain - M54.2 (Primary) 2 . H yperlipidemia - E78.5 ?3. P rediabetes - R73.03 Plan: * Treatment: 2. H yperlipidemia L AB: GLYCOHEMOGLOBIN A1C L AB: LIPID PROFILE 3. P rediabetes L AB: GLYCOHEMOGLOBIN A1C L AB: LIPID PROFILE * Procedure Codes: * true * Date: Generated for Tino peña/Sebastian/Daleitting on: 0 04/30/2025 06:55 AM EDT Consultation Request Notes Referral Date Referring Provider Referred Provider Not es 04/25/2025 Carol Miranda Steven
--- NOTE | 2025-04-30 | US_ITS ---
The [address] [address] Patient Name: GABINO NUNO MRN: [id number] date: 1970 Sex: F Assigned Patient Location: US Current Patient Location: US Accession/Order Number: [id number] Exam Date: 04/30/2025 08:50 Report Date: 04/30/2025 08:52 At the request of: OSCAR SWEET Procedure: US soft tissue head and neck LIMITED ULTRASOUND - left clavicle CLINICAL DATA: Chronic palpable lump near the left clavicle for the past year. COMPARISON: None Real-time ultrasound evaluation of the area of palpable concern was performed. Right side was also viewed for comparison. There are no discrete cystic or solid subcutaneous masses. No ultrasound abnormalities are visualized at the site of palpable concern. The binding machine operator indicated that the palpable finding might be osseous. US/US soft tissue head and neck IMPRESSION: NO SIGNIFICANT ULTRASOUND FINDINGS AT THE SITE OF PALPABLE CONCERN. CLINICAL MANAGEMENT IS SUGGESTED. Impression dictated by: Tracey Carlson M.D. 04/30/2025 8:52 AM Dictation Location: [place] [address] Electronically authenticated by: [id number] Y Date: 04/30/2025 08:52
--- OUTSIDE RECORDS SUMMARY | 2025-04-30 06:55 | XMS_ITS | Clinical Summary ---
Author Organization [facility] Address [address] [place] [address] Care Team Providers Care Parachute Crown Sewer Name Role Phone Obdulio Grant MD Primary Care Provider [phone] Allergies No known active allergies Medications naproxen (NAPROSYN) 500 MG tablet Take 1 tablet by mouth 2 times daily (with meals) 60 tablet 12/08/2018 Active Active Problems No known active problems Family History Medical History Relation Name Comments Diabetes Mother High Blood Pressure Mother Relation Name Status Comments Mother Social History Tobacco Use Types Packs/Day Years Used Date Smoking Tobacco: Never Assessed Smokeless Tobacco: Never Comments Unknown Sex and Gender Information Value Date Recorded Sex Assigned at Not on file Legal Sex Female 4:09 PM EST Gender Identity Not on file Sexual Orientation Not on file Last Filed Vital Signs Vital Sign Reading Time Taken Comments Blood Pressure - - Pulse - - Temperature 36.7 C (98 F) 06/22/2019 10:35 AM EDT Respiratory Rate - - Oxygen Saturation - - Inhaled Oxygen Concentration - - Weight 90.7 kg (200 lb) 06/22/2019 10:35 AM EDT Height 168.9 cm (5' 6.5 ) 06/22/2019 10:35 AM ED T Body Mass Index 31.8 06/22/2019 10:35 AM EDT Plan of Treatment Not on file Insurance [employer] Care Teams Parachute Crown Sewer Relationship Specialty Start Date End Date Obdulio Grant MD PCP - General 11/20/18
--- OUTSIDE RECORDS SUMMARY | 2025-04-30 06:56 | XMS_ITS | Clinical Summary ---
Author Organization [facility] Address [address] [place] [id number] Care Team Providers Care Design Technology Teacher Name Role Phone Víctor Darling MD Primary Care Provider [phone] Petra Hernandez SUBSTATION DESIGN DRAFTSPERSON Unavailable [phone] Allergies Active Allergy Reactions Criticality Noted Date Comments Amoxicillin Rash Low 08/31/2023 Medications valACYclovir (Valtrex) 500 MG tablet TAKE 1 TABLET AT THE FIRST SIGN OF OUTBREAK, TWICE A DAY FOR 3 DAYS Active fish oil concentrate (Burdette-3) 1000 MG capsuleIndication s:Hypertriglyceri demia,Mixed dyslipidemia Take 2 capsules (2 g) by mouth in the morning and 2 capsules (2 g) before bedtime. Active Active Problems Problem Noted Date Diagnosed Date Arm paresthesia, left 06/19/2024 Gastroesophageal reflux disease with esophagitis 06/19/2024 Assessment & Plan (06/19/2024 9:25 AM EDT): Trialed Prilosec OTC for 14 days- was working well Stopped. Is doing well now. Hypertriglyceridemia 06/19/2024 Assessment & Plan (06/19/2024 9:37 AM EDT): Currently not on any medications- rechecking Lipid panel today Mild intermittent asthma without complication Overview (06/19/2024): Has PRN Ventolin rescue inhaler Obesity (BMI 30.0-34.9) 06/19/2024 Spondylosis of lumbar region without myelopathy or radiculopathy 06/19/2024 Migraines 06/19/2024 Seasonal allergies 06/19/2024 Overview (06/19/2024): Managed with OTC Flonase Cetirizine HSV (herpes simplex virus) anogenital infection 08/31/2023 S/P hysterectomy 08/31/2023 Overview (06/19/2024): For heavy bleeding and fibroids Mixed dyslipidemia 05/29/2019 Family History Medical History Relation Name Comments Heart attack Father Relation Name Status Comments Father Mother Social History Tobacco Use Types Packs/Day Years Used Date Smoking Tobacco: Never Passive Smoke Exposure: Never Smokeless Tobacco: Never Tobacco Cessation:Counseling Given: No Alcohol Use Standard Drinks/Week Comments Never 0 (1 standard drink = 0.6 oz pur e alcohol) PHQ-2 Answer Date Recorded Patient Health Questionnaire-2 Score 0 06/19/2024 Comments Unknown Sex and Gender Information Value Date Recorded Sex Assigned at Not on file Legal Sex Female 6:52 PM EDT Gender Identity Not on file Sexual Orientation Not on file Last Filed Vital Signs Vital Sign Reading Time Taken Comments Blood Pressure 122/80 06/19/2024 9:00 AM EDT Pulse 83 06/19/2024 9:00 AM EDT 97% O 2 Temperature 37 C (98.6 F) 06/19/2024 9:00 AM EDT Respiratory Rate - - Oxygen Saturation - - Inhaled Oxygen Concentration - - Weight 93.9 kg (207 lb) 06/19/2024 9:00 AM EDT Height 168.9 cm (5' 6.5 ) 06/19/2024 9:00 AM EDT Body Mass Index 32.91 06/19/2024 9:00 AM EDT Plan of Treatment Health Maintenance Due Date Last Done Comments CT Colonography 1970 FIT-DNA 1970 FIT 1970 FOBT 1970 Sigmoidoscopy 1970 Mammogram 06/18/2025 06/18/2024, 05/15, 05/26/2020, Additional history exists Influenza Vaccine (Season Ended) 2025 Colonoscopy 05/22/2031 05/22/2021 Colorectal Cancer Screening 05/22/2031 Cervical Cancer Screening Discontinued Pap Smear Discontinued 10/18/2023 HPV/Cotest Discontinued Procedures Procedure Name Priority Date/Time Associated Diagnosis Comments MAMMOGRAM DIGITAL SCREEN BILAT Routine 06/07/2022 12:00 PM EDT COLONOSCOPY Routine 05/22/2021 12:00 PM EDT from Last 3 Months or Most Recently Relevant to Health Maintenance Results * MAMMOGRAM DIGITAL SCREEN BILAT (06/07/2022 12:00 PM EDT) Anatomical Region Laterality Modality Radiographic Constance ging Narrative 06/07/2022 12:00 PM EDT PERFORMED AT [facility] LOCATION:[id number] Procedure Note CONVERSION, GENERIC - 05/20/2023 PERFORMED AT [facility] LOCATION:[id number] [place] Chidi Huitron MD IMG XR PROCEDURES Final Resu lt * Colonoscopy (05/22/2021 12:00 PM EDT) Anatomical Region Laterality Modality Endoscopy 05/22/2021 12:0 0 PM EDT Narrative 05/22/2021 12:00 PM EDT PERFORMED AT [facility] LOCATION:[id number] Procedure Note CONVERSION, GENERIC - 03/30/2023 PERFORMED AT [facility] LOCATION:[id number] us Chidi Huitron MD ENDOSCOPY PROCEDURE ORDERABL ES Final Result from Last 3 Months or Most Recently Relevant to Health Maintenance Insurance [employer] Care Teams Design Technology Teacher Relationship Specialty Start Date End Date Víctor Darling MD [address] [place] [id number] PCP - General Family Medicine 06/13/24 Petra Hernandez NP [address] [place] [id number] Nurse Practitioner Family Medicine 06/13/24
--- OUTSIDE RECORDS SUMMARY | 2025-04-30 06:56 | XMS_ITS | CCD ---
Author Organization [facility] Care Team Providers Care Ceo And President Name Role Phone Lv Carty Unavailable Leon [...] Care Provider DEEPIKA Hurd Attending Provider [phone] Yovani Hurd Unavailable Anne, DO Lv Drake Primary Care Provider [phone] Anne, DO Lv N Referring Provider Self, Referral Attending Provider Unavailable DO Lv Carty N Attending Provider [phone] ISSA MORTON Referring Unavailable ANNE, LV N [...] Repository (1 source) Amoxicillin Drug Allergy 03-19-2024 [facility] Repository Medications Current Medications Medication Drug Class(es) Dates Sig (Normalized) Sig (Original) [id number] actuat albuterol 0.09 mg/actuat metered dose [...] Start: 09-14-2023 take 1 capsule by mo [facility] every eight hours Cephalexin 500 MG 1 [...] 19, 2024 8:39am take 1 tablet by [facility] every twenty-four hours Cyclobenzaprine HCl 10 [...] 2024 9:40am take 1 capsule by mo [facility] every twenty-four hours Gabapentin 300 MG 1 [...] Active Start: 07-07-2023 take 2 tablets by [facility] every twenty-four hours predniSONE 20 MG 2 [...] days. Start: 10-18-2021 take 2 tablets by [facility] every twenty-four hours predniSONE 20 MG 2 [...] for 10 day(s) Jun, Active estrogens, conjugated (fci) 0.3 mg oral tablet (7 sources) Estrogen Start: 09-18-2021 End: 03-19-2024 take 1 tablet by mouth once daily in the morning Conjugated Estrogens (Premarin) 0.3 mg Tablet Discontinued 0.3 MG PO Every morning September 17, 2021 11:00pm March 19, 2024 8:39am hydrocortisone acetate 25 mg rectal suppository (7 sources) Corticosteroid Start: 05-22-2021 End: 09-18-2021 Hydrocortisone Acetate 25 mg suppository Discontinued 25 MG NV Twice daily 06 06May 21, 2021 11:00pm [...] n 06-18-2024 MM screening mammo BI w/CAD [facility] [place] [address] Mammography Report Signed Patient: Mindi Zheng MR#: [id number] : 1970 Acct:[id number] Age/Sex: 54 / F ADM Date: 06/18/24 Loc: [place] Room: Type: [facility] Attending Dr: Referral Self Copies to: Lv [...] Haris Linares M.D.06/18/2024 8:47 AM Dictation Location: [facility] Transcribed By: LISA 06/18/24846 Dictated By: Haris Linares DO 06/18/2446 Signed By: 06/18/24 0847 Normal [facility] COVID + FLU Quick Testingon 12-19-2023 SARS-CoV-2 (COVID-19) RNA BREANNA+probe Ql (Unsp spec) Positive [facility] [employer] Other COVID + FLU Quick Testing Negative [facility] [employer] Other XR cerv spine AP/LAT/FLX/EXT on 07-07-2023 XR cerv spine AP/LAT/FLX/EXT [facility] [place] [address] XRay Report Signed Patient: Mindi Zheng MR#: [id number] : 1970 Acct:[id number] Age/Sex: 53 / F ADM Date: 07/07/23 Loc: [facility] Room: Type: [facility] Attending Dr: Lv Carty DO Copies to: [...] Colon Jr., D.OAmanuel07/07/2023 4:01 PM Dictation Location: [facility] Transcribed By: [facility] 07/07/23 1601 Dictated By: Maycol Colon Jr, DO 07/07/23 1600 Signed By: 07/07/23 1601 Normal [facility] XR chest 2V*on 11-16-2022 XR chest 2V* [facility] [employer] Other XR chest 2V* [facility] [employer] Other XR chest 2V* [address] [place] [address] [employer] Other XR chest 2V* [place] [address] [facility] Other XR chest 2V* XRay Report [employer] Other XR chest 2V* Signed [employer] Other XR chest 2V* Patient: Mindi Zheng MR#: [id number] [place] [employer] Other XR chest 2V* 7706 [employer] Other XR chest 2V* : 1970 Acct:[id number] [employer] Other XR chest 2V* Age/Sex: 52 / F ADM Date: 11/16/22 [employer] Other XR chest 2V* [facility] Room: Type : [facility] [employer] Other XR chest 2V* Attending Dr: Jack Hurd APRN [employer] Other XR chest 2V* Copies to: Yovani Hurd APRN [employer] Other XR chest 2V* Ordering Provider: Yovani Hurd APRN [employer] Other XR chest 2V* Date of Service: 11/16/22 [employer] Other XR chest 2V* XR/XR chest 2V*: Subacute cough [employer] Other XR chest 2V* Chest 2 views [facility] [employer] Other XR chest 2V* CLINICAL HISTORY: Nonproductive cough for 2 weeks with left shoulder pain for 2 days. [employer] Other XR chest 2V* COMPARISON: None [employer] Other XR chest 2V* FINDINGS: [employer] Other XR chest 2V* Heart normal size. Lungs are clear. No free air. [employer] Other XR chest 2V* XR/XR chest 2V* [employer] Other XR chest 2V* IMPRESSION: [employer] Other XR chest 2V* NO ACUTE CARDIOPULMONARY ABNORMALITY. [employer] Other XR chest 2V* Impression dictated by: Maycol Colon Jr., D.OAmanuel11/16/2022 3:35 PM [employer] Other XR chest 2V* Dictation Location: [place] [address] [employer] Other XR chest 2V* Transcribed By: LISA 11/16/22 [facility] [employer] Other XR chest 2V* Dictated By: Maycol Colon Jr, DO 11/16/22 [facility] [employer] Other XR chest 2V* Signed By: [employer] Other XR chest 2V* 11/16/22 1535 [facility] [employer] Other XR hips BI 4V adulton 2021 XR hips BI 4V adult [facility] [employer] Other XR hips BI 4V adult [facility] [place] [facility] Other XR hips BI 4V adult 1[address] [facility] [employer] Other X[place] [address] [employer] Other XR hips BI 4V adult XRay Report [employer] Other XR hips BI 4V adult Signed [employer] Other XR hips BI 4V adult Patient: Mindi Zheng MR#: [id number] [employer] Other XR hips BI 4V adult 7706 [employer] Other XR hips BI 4V adult : 1970 Acct:[id number] [employer] Other XR hips BI 4V adult Age/Sex: 51 / F ADM Date: 02/02/22 [employer] Other XR hips BI 4V adult Loc: [facility] Room: Type: REG CLI [employer] Other XR hips BI 4V adult Attending Dr: Gordon Aaron MD [employer] Other XR hips BI 4V adult Ordering Provider: Gordon Aaron MD [employer] Other XR hips BI 4V adult Date of Service: 02/02/22 [employer] Other XR hips BI 4V adult XR/XR hips BI 4V adult: Hip pain [employer] Other XR hips BI 4V adult Copies to: Gordon Aaron MD [employer] Other XR hips BI 4V adult ADULT PELVIS WITH BILATERAL HIPS -3 views [employer] Other XR hips BI 4V adult CLINICAL HISTORY: Bilateral chronic hip and groin pain, greater on the left. No reported injury. [employer] Other XR hips BI 4V adult Back surgery 4 months ago. [employer] Other XR hips BI 4V adult COMPARISON: KUB 08/23/2014 [employer] Other XR hips BI 4V adult AP view of the pelvis as well as frog-lateral views of both hips were obtained. No fracture, [employer] Other XR hips BI 4V adult dislocation or bony destruction is seen. The hip joint spaces are symmetric. There is no sig [employer] Other XR hips BI 4V adult nificant arthritic change at the hips. Enthesophytes are visualized at the iliac crests and greater [employer] Other XR hips BI 4V adult trochanters. The SI joints are intact and show minor sclerosis. The soft tissues are unremarkable. [employer] Other XR hips BI 4V adult XR/XR hips BI 4V adult [employer] Other XR hips BI 4V adult IMPRESSION: [employer] Other XR hips BI 4V adult NO ACUTE PLAIN FILM FINDINGS. [employer] Other XR hips BI 4V adult Impression dictated by: Tracey Carlson M.D.02/02/2022 3:50 PM [employer] Other XR hips BI 4V adult Dictation Location: [place] [address] [employer] Other XR hips BI 4V adult Transcribed By: LISA 02/02/22 1550 [employer] Other XR hips BI 4V adult Dictated By: Tracey Carlson MD 02/02/22 1548 [employer] Other XR hips BI 4V adult Signed By: [employer] Other XR hips BI 4V adult 02/02/22 1550 [employer] Other COVID + FLU Quick Testingon 11-24-2021 SARS-CoV-2 (COVID-19) RNA BREANNA+probe Ql (Unsp spec) Negative [employer] Other COVID + FLU Quick Testing Negative [employer] Other COVID Quick Testingon 2020 Result Positive [employer] Other XR lumbar spine AP/LAT/FLX/E XTon 08-04-2021 XR lumbar spine AP/LAT/FLX/EXT [facility] [employer] Other XR lumbar spine AP/LAT/FLX/EXT [facility] [employer] Other XR lumbar spine AP/LAT/FLX/EXT [address] [place] [address] [employer] Other XR lumbar spine AP/LAT/FLX/[place] [address] [employer] Other XR lumbar spine AP/LAT/FLX/EXT XRay Report [employer] Other XR lumbar spine AP/LAT/FLX/EXT Signed [employer] Other XR lumbar spine AP/LAT/FLX/EXT Patient: Mindi Zheng MR#: [id number] [employer] Other XR lumbar spine AP/LAT/FLX/EXT 7706 [employer] Other XR lumbar spine AP/LAT/FLX/EXT : 1970 Acct:[id number] [employer] Other XR lumbar spine AP/LAT/FLX/EXT Age/Sex: 51 / F ADM Date: 08/04/21 [employer] Other XR lumbar spine AP/LAT/FLX/EXT Loc: XD Room: Type: [facility] [employer] Other XR lumbar spine AP/LAT/FLX/EXT Attending Dr: Leon Puente MD [employer] Other XR lumbar spine AP/LAT/FLX/EXT Ordering Provider: Leon Puente MD [employer] Other XR lumbar spine AP/LAT/FLX/EXT Date of Service: 08/04/21 [employer] Other XR lumbar spine AP/LAT/FLX/EXT XR/XR lumbar spine AP/LAT/FLX/EXT: M54.16 [employer] Other XR lumbar spine AP/LAT/FLX/EXT Copies to: Leon Puente MD [employer] Other XR lumbar spine AP/LAT/FLX/EXT XR lumbar spine AP/LAT/FLX/EXT 08/04/2021 2:11 PM [employer] Other XR lumbar spine AP/LAT/FLX/EXT SIGNS AND SYMPTOMS: Low back pain radiating to left thigh radiating to the mid and lower calf [employer] Other XR lumbar spine AP/LAT/FLX/EXT PROTOCOLS: Frontal, lateral, and flexion-extension views of the lumbar spine [employer] Other XR lumbar spine AP/LAT/FLX/EXT COMPARISON: 12/08/2018 [employer] Other XR lumbar spine AP/LAT/FLX/EXT FINDINGS: [employer] Other XR lumbar spine AP/LAT/FLX/EXT There is a levoconvex curvature of the lumbar spine. This is slightly more pronounced when [employer] Other XR lumbar spine AP/LAT/FLX/EXT compared to the prior exam. There is no fracture or destructive lesion. There is no pathologic [employer] Other XR lumbar spine AP/LAT/FLX/EXT movement on flexion or extension. [employer] Other XR lumbar spine AP/LAT/FLX/EXT Minimal intervertebral disc height loss is noted throughout the lumbar spine with mild anterior [employer] Other XR lumbar spine AP/LAT/FLX/EXT osteophyte formation at T12-L1, L1-L2, L2-3, and L5-S1. Facet degenerative changes are present [employer] Other XR lumbar spine AP/LAT/FLX/EXT greatest at L4-5 and L5-S1.. [employer] Other XR lumbar spine AP/LAT/FLX/EXT The sacrum and sacroiliac joints are normal. [employer] Other XR lumbar spine AP/LAT/FLX/EXT Atherosclerotic changes are noted in the abdominal aorta. There is evidence of prior [employer] Other XR lumbar spine AP/LAT/FLX/EXT cholecystectomy. [employer] Other XR lumbar spine AP/LAT/FLX/EXT XR/XR lumbar spine AP/LAT/FLX/EXT [employer] Other XR lumbar spine AP/LAT/FLX/EXT IMPRESSION: [employer] Other XR lumbar spine AP/LAT/FLX/EXT Mild multilevel degenerative change similar to prior exam. [employer] 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 This is slightly more pronounced. [employer] Other XR lumbar spine AP/LAT/FLX/EXT No pathologic movement on flexion or extension. [employer] Other XR lumbar spine AP/LAT/FLX/EXT Impression dictated by: Marck Desir M.D.08/04/2021 4:42 PM [facility] [employer] Other XR lumbar spine AP/LAT/FLX/EXT Dictation Location: [address] [employer] Other XR lumbar spine AP/LAT/FLX/EXT Transcribed By: PWS 08/04/21 [facility] [employer] Other XR lumbar spine AP/LAT/FLX/EXT Dictated By: Marck Desir II, MD 08/04/21 [facility] [employer] Other XR lumbar spine AP/LAT/FLX/EXT Signed By: [employer] Other XR lumbar spine AP/LAT/FLX/EXT 08/04/21 [facility] [employer] Other Vital Signs Date Time Vital Sign Value Performing Clinician Facility 12-21-2024 16:50-0500 Body height 168.91 cm [facility] 12-21-2024 16:50-0500 Body mass index (BMI) [Ratio] 31.8 kg/m2 [facility] 12-21-2024 16:50-0500 Body temperature 97.3 [degF] [facility] 12-21-2024 16:50-0500 Body weight 90.71 kg [facility] 12-21-2024 16:50-0500 Diastolic blood pressure 75 mm[Hg] [facility] 12-21-2024 16:50-0500 Heart rate 110 /min [facility] 12-21-2024 16:50-0500 Respiratory rate 18 /min [facility] 12-21-2024 16:50-0500 SaO2% (BldA) [Mass fraction] 97 % [facility] 12-21-2024 16:50-0500 Systolic blood pressure 122 mm[Hg] [facility] 03-19-2024 09:36-0400 Body height 168.91 cm [facility] 03-19-2024 09:36-0400 Body mass index (BMI) [Ratio] 34 kg/m2 [facility] 03-19-2024 09:36-0400 Body weight 97.18 kg [facility] 03-19-2024 09:36-0400 Diastolic blood pressure 78 mm[Hg] [facility] 03-19-2024 09:36-0400 Heart rate 87 /min [facility] 03-19-2024 09:36-0400 SaO2% (BldA) [Mass fraction] 98 % [facility] 03-19-2024 09:36-0400 Systolic blood pressure 112 mm[Hg] [facility] 12-19-2023 09:00-0500 Body height 168.91 cm Maryann Pati Other [facility] [employer] Other 12-19-2023 09:00-0500 Body mass index (BMI) [Ratio] 31.79 kg/m2 Maryann Pati Other [employer] Other 12-19-2023 09:00-0500 Body temperature 97.2 [degF] Maryann Pati Other [employer] Other 12-19-2023 09:00-0500 Body weight 90.72 kg Maryann Pati Other [employer] Other 12-19-2023 09:00-0500 Respiratory rate 18 /min Maryann Pati Other [employer] Other 12-19-2023 09:00-0500 SaO2% (BldA) [Mass fraction] 96 % Maryann Pati Other [employer] Other 08-04-2023 09:00-0400 Body height 168.91 cm Lv Carty Other [employer] Other 08-04-2023 09:00-0400 Body mass index (BMI) [Ratio] 32.16 kg/m2 Lv Mendozamer Other [employer] Other 08-04-2023 09:00-0400 Body weight 91.76 kg Lv Mendozamer Other [employer] Other 08-04-2023 09:00-0400 Diastolic blood pressure 88 mm[Hg] Lv Anne Other [employer] Other 08-04-2023 09:00-0400 Respiratory rate 18 /min Lv Anne Other [employer] Other 08-04-2023 09:00-0400 SaO2% (BldA) [Mass fraction] 97 % Lv Anne Other [employer] Other 08-04-2023 09:00-0400 Systolic blood pressure 122 mm[Hg] Lv Anne Other [employer] Other 07-07-2023 15:15-0400 Body height 168.91 cm Lv Anne Other [employer] Other 07-07-2023 15:15-0400 Body mass index (BMI) [Ratio] 33.22 kg/m2 Lv Anne Other [employer] Other 07-07-2023 15:15-0400 Body weight 94.8 kg Lv Carty Other [employer] Other 07-07-2023 15:15-0400 Diastolic blood pressure 78 mm[Hg] Lv Carty Other [employer] Other 07-07-2023 15:15-0400 Respiratory rate 18 /min Lv Carty Other [employer] Other 07-07-2023 15:15-0400 SaO2% (BldA) [Mass fraction] 98 % Lv Carty Other [employer] Other 07-07-2023 15:15-0400 Systolic blood pressure 130 mm[Hg] Lv Carty Other [employer] Other 11-16-2022 14:45-0500 Body height 168.91 cm Yovani Hurd Other [employer] Other 11-16-2022 14:45-0500 Body mass index (BMI) [Ratio] 31.67 kg/m2 Yovani Hurd Other [employer] Other 11-16-2022 14:45-0500 Body weight 90.36 kg Yovani Hurd Other [employer] Other 11-16-2022 14:45-0500 Diastolic blood pressure 78 mm[Hg] Yovani Hurd Other [employer] Other 11-16-2022 14:45-0500 Respiratory rate 16 /min Yovani Hurd Other [employer] Other 11-16-2022 14:45-0500 SaO2% (BldA) [Mass fraction] 99 % Yovani Hurd Other [employer] Other 11-16-2022 14:45-0500 Systolic blood pressure 122 mm[Hg] Yovani Kernks Other [employer] Other 10-25-2022 10:30-0500 Body height 168.91 cm Yovani Hurd Other [employer] Other 10-25-2022 10:30-0500 Body mass index (BMI) [Ratio] 31.89 kg/m2 Yovani Hurd Other [employer] Other 10-25-2022 10:30-0500 Body temperature 98 [degF] Yovani Hurd Other [employer] Other 10-25-2022 10:30-0500 Body weight 90.99 kg Yovani Hurd Other [employer] Other 10-25-2022 10:30-0500 Diastolic blood pressure 78 mm[Hg] Yovani Hurd Other [employer] Other 10-25-2022 10:30-0500 Respiratory rate 16 /min Yovani Hurd Other [employer] Other 10-25-2022 10:30-0500 SaO2% (BldA) [Mass fraction] 99 % Yovani Hurd Other [employer] Other 10-25-2022 10:30-0500 Systolic blood pressure 118 mm[Hg] Yovani Hurd Other [employer] Other 06-25-2022 10:45-0400 Body height 168.91 cm Lv Carty Other [employer] Other 06-25-2022 10:45-0400 Body mass index (BMI) [Ratio] 32.51 kg/m2 Lv Carty Other [employer] Other 06-25-2022 10:45-0400 Body temperature 99.4 [degF] Lv Anne Other [employer] Other 06-25-2022 10:45-0400 Body weight 92.76 kg Lv Anne Other [employer] Other 06-25-2022 10:45-0400 Diastolic blood pressure 84 mm[Hg] Lv Anne Other [employer] Other 06-25-2022 10:45-0400 Respiratory rate 18 /min Lv Mendozamer Other [employer] Other 06-25-2022 10:45-0400 SaO2% (BldA) [Mass fraction] 98 % Lv Mendozamer Other [employer] Other 06-25-2022 10:45-0400 Systolic blood pressure 124 mm[Hg] Lv Anne Other [employer] Other 02-02-2022 16:30-0400 Body height 168.91 cm Gordon Aaron Other [employer] Other 02-02-2022 16:30-0400 Body mass index (BMI) [Ratio] 31.79 kg/m2 Gordon Aaron Other [employer] Other 02-02-2022 16:30-0400 Body weight 90.72 kg Gordon Aaron Other [employer] Other 01-12-2022 11:20-0500 Body height 168.91 cm Leon Puente Other [employer] Other 01-12-2022 11:20-0500 Body mass index (BMI) [Ratio] 31.79 kg/m2 Leon Puente Other [employer] Other 01-12-2022 11:20-0500 Body weight 90.72 kg Leon Puente Other [employer] Other 11-24-2021 10:45-0500 Body height 168.91 cm Lv Carty Other [employer] Other 11-24-2021 10:45-0500 Respiratory rate 18 /min Lv Carty Other [employer] Other 11-24-2021 10:45-0500 SaO2% (BldA) [Mass fraction] 98 % Lv Carty Other [employer] Other 11-10-2021 14:00-0500 Body height 168.91 cm Leon Puente Other [employer] Other 11-10-2021 14:00-0500 Body mass index (BMI) [Ratio] 31.79 kg/m2 Leon Puente Other [employer] Other 11-10-2021 14:00-0500 Body weight 90.72 kg Leon Puente Other [employer] Other 10-18-2021 10:00-0500 Body height 168.91 cm Gordon Hernandez Other [employer] Other 10-18-2021 10:00-0500 Body mass index (BMI) [Ratio] 31.79 kg/m2 Gordon Hernandez Other [employer] Other 10-18-2021 10:00-0500 Body temperature 98 [degF] Gordon Hernandez Other [employer] Other 10-18-2021 10:00-0500 Body weight 90.72 kg Gordon Hernandez Other [employer] Other 10-18-2021 10:00-0500 Diastolic blood pressure 91 mm[Hg] Gordon Hernandez Other [employer] Other 10-18-2021 10:00-0500 SaO2% (BldA) [Mass fraction] 98 % Gordon Hernandez Other [employer] Other 10-18-2021 10:00-0500 Systolic blood pressure 136 mm[Hg] Gordon Hernandez Other [employer] Other 09-05-2021 13:30-0400 Body height 168.91 cm Carmen Ginty Other [employer] Other 09-05-2021 13:30-0400 Body mass index (BMI) [Ratio] 32.75 kg/m2 Carmen Ginty Other [employer] Other 09-05-2021 13:30-0400 Body temperature 97.5 [degF] Carmen Ginty Other [employer] Other 09-05-2021 13:30-0400 Body weight 93.44 kg Carmen Ginty Other [employer] Other 09-05-2021 13:30-0400 SaO2% (BldA) [Mass fraction] 100 % Carmen Ginty Other [employer] Other 08-05-2021 11:30-0400 Body height 168.91 cm Lv Mendozamer Other [employer] Other 08-05-2021 11:30-0400 Body mass index (BMI) [Ratio] 32.84 kg/m2 Lv Carty Other [employer] Other 08-05-2021 11:30-0400 Body temperature 96.9 [degF] Lv Anne Other [employer] Other 08-05-2021 11:30-0400 Body weight 93.71 kg Lv Anne Other [employer] Other 08-05-2021 11:30-0400 Diastolic blood pressure 84 mm[Hg] Lvsantana Carty Other [employer] Other 08-05-2021 11:30-0400 Respiratory rate 18 /min Lv Anne Other [employer] Other 08-05-2021 11:30-0400 SaO2% (BldA) [Mass fraction] 98 % Lv Carty Other [employer] Other 08-05-2021 11:30-0400 Systolic blood pressure 130 mm[Hg] Lv Carty Other [employer] Other 08-04-2021 14:20-0400 Body height 168.91 cm Leon Puente Other [employer] Other 08-04-2021 14:20-0400 Body mass index (BMI) [Ratio] 31.79 kg/m2 Leon Puente Other [employer] Other 08-04-2021 14:20-0400 Body weight 90.72 kg Leon Puente Other [employer] Other 08-04-2021 14:20-0400 Diastolic blood pressure 72 mm[Hg] Leon Puente Other [employer] Other 08-04-2021 14:20-0400 Systolic blood pressure 124 mm[Hg] Leon Puente Other [employer] Other Encounters Encounter Date Encounter Type Care Provider Facility Start: 12-21-2024 End: 12-21-2024 ambulatory [facility] Work Phone: Start: 12-21-2024 End: 12-21-2024 Patient encounter procedure [facility] [place] Work Phone: Start: 10-10-2024 End: 10-10-2024 ambulatory [facility] Start: 10-10-2024 Encounter for gynecological examination (general) (routine) without abnormal findings [facility] Start: 06-19-2024 End: 06-19-2024 ambulatory JAY BELL Not Available Start: 06-18-2024 End: 06-18-2024 Patient encounter procedure DO Lv Carty Work Phone: [facility] Work Phone: Start: 06-18-2024 End: 06-18-2024 ambulatory DO Lv Carty Work Phone: [facility] Work Phone: Start: 03-19-2024 End: 03-19-2024 ambulatory [facility] Work Phone: Start: 03-19-2024 End: 03-19-2024 Patient encounter procedure [facility] [place] Work Phone: Start: 12-19-2023 End: 12-19-2023 ambulatory Maryanntri [employer] Other [employer] Other Start: 12-19-2023 Office outpatient vi sit 15 minutes Maryann Pati [facility] [place] Start: 12-19-2023 Telephone encounter Lv Najera [facility] [place] Start: 10-14-2023 End: 11-14-2023 ambulatory ISSA Ruelas [facility] Start: 09-14-2023 End: 09-14-2023 ambulatory Lv Carty Other [employer] Other Start: 09-14-2023 Telephone encounter Lv Najera [facility] [place] Start: 08-19-2023 End: 08-19-2023 ambulatory Lv Carty Other [employer] Other Start: 08-19-2023 Telephone encounter Lv Najera [facility] [place] Start: 08-04-2023 (Procedure) Short Lvsantana Carty [facility] [place] Start: 08-04-2023 End: 08-04-2023 ambulatory Lv Carty Other [employer] Other Start: 07-14-2023 End: 07-14-2023 ambulatory Lv Carty Other [employer] Other Start: 07-14-2023 Telephone encounter Lv Najera [facility] [place] Start: 07-08-2023 End: 07-08-2023 ambulatory Lv Carty Other [employer] Other Start: 07-08-2023 Telephone encounter Lv Najera [facility] [place] Start: 07-07-2023 End: 07-07-2023 Patient encounter procedure DO Lv Carty Work Phone: [facility] Start: 07-07-2023 End: 07-07-2023 ambulatory DO Lv Carty Work Phone: [facility] Work Phone: Start: 07-07-2023 Office outpatient vi sit 15 minutes Lv Carty [facility] Start: 06-13-2023 End: 06-13-2023 ambulatory DO Lv Carty Work Phone: [facility] Work Phone: Start: 06-13-2023 End: 06-13-2023 Patient encounter procedure DO Lv Carty Work Phone: [facility] Work Phone: Start: 11-16-2022 End: 11-16-2022 ambulatory DO Lv Carty Work Phone: [facility] Work Phone: Start: 11-16-2022 End: 11-16-2022 Patient encounter procedure DO Lv Carty Work Phone: [facility] [place] Start: 11-16-2022 Office outpatient vi sit 15 minutes Yovani Hurd [facility] [place] Start: 11-16-2022 Telephone encounter Lv Najera [facility] Start: 11-16-2022 End: 11-16-[address] JAYLYN LARSEN Facility: Start: 10-25-2022 End: 10-25-2022 ambulatory Yovani Hurd Other [employer] Other Start: 10-25-2022 Office outpatient vi sit 15 minutes Yovani Hurd [facility] Start: 09-27-2022 End: 09-27-2022 ambulatory Lv Carty Other [employer] Other Start: 09-27-2022 Telephone encounter Lv Najera [facility] [place] Start: 09-17-2022 End: 09-17-2022 ambulatory Lv Carty Other [employer] Other Start: 09-17-2022 Telephone encounter Lv Najera [facility] [place] Start: 06-25-2022 End: 06-25-2022 ambulatory Lv Carty Other [employer] Other Start: 06-25-2022 Office outpatient vi sit 15 minutes Lv [facility] [place] Start: 06-07-2022 End: 06-07-2022 Patient encounter procedure Referral Self [facility] Start: 02-03-2022 End: 02-03-2022 ambulatory Gordon Aaron Other [employer] 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 Other Start: 02-02-2022 Office consultation new/estab patient 60 min Gordon Aaron [facility] [place] Start: 01-12-2022 End: 01-12-2022 ambulatory Leon Puente Other [employer] Other Start: 01-12-2022 Postop follow up vis it related to original px Leon Puente [facility] Neurosurgery Start: 11-24-2021 End: 11-24-2021 ambulatory Lv Carty Other [employer] Other Start: 11-24-2021 Office outpatient vi sit [address] [facility] Start: 11-10-2021 End: 11-10-2021 ambulatory Leon Puente Other [employer] Other Start: 11-10-2021 Postop follow up vis it related to original px Leon Puente [facility] Neurosurgery Start: 11-04-2021 End: 11-04-2021 ambulatory Lv Carty Other [employer] Other Start: 11-04-2021 Telephone encounter Lv Najera [facility] Start: 10-28-2021 End: 10-28-2021 ambulatory Lv aCrty Other [employer] Other Start: 10-28-2021 Telephone encounter Lv Najera [facility] Start: 10-18-2021 End: 10-18-2021 ambulatory Gordon Hernandez Other [employer] Other Start: 10-18-2021 Office outpatient vi sit 15 minutes Gordon [place] [facility] Urgent Care [facility] Start: 09-30-2021 End: 09-30-2021 ambulatory Lv Carty Other [employer] Other Start: 09-30-2021 Telephone encounter Lv Najera [facility] Start: 09-07-2021 Telephone encounter Leon Puente [facility] Start: 09-05-2021 End: 09-05-2021 ambulatory Carmen Ginty Other [employer] Other Start: 09-05-2021 Office outpatient vi sit 15 minutes Carmen Khannty [facility] Urgent Care [place] Start: 08-27-2021 Telephone encounter Leon Puente [facility] Neuro[facility] Start: 08-05-2021 Encounter for genera l adult medical examination without abnormal findings Lv Carty [facility] Start: 08-05-2021 Periodic preventive med est patient 40-64yrs Lv Carty [facility] Start: 08-04-2021 Office outpatient ne w 45 minutes Leon Puente [facility] Neurosurgery Procedures Date Procedure Procedure Detail Performing [...] seasonal, injectable Patient Objection Lv Anne Other [facility] [employer] Other Payers Date Payer Category Payer Self-pay [id number] 2014 Private Health Insurance [id number] 1970 Unknown [id number] 2.16.84 [id number] 1970 Unknown [id number] 2.16.84 [id number] 1970 Unknown [id number] 2.16.84 [id number] 1970 Unknown [id number] 2.16.8 [id number] 1960 Self-pay [id number] Private Health Insurance [id number] Unknown [id number] 2.16.8 [id number] Unknown [id number] 2.16.8 [id number] Social History Date Type Detail Facility Sex Assigned At [facility] [employer] Other Start: 11-03-2021 End: 11-03-2021 Tobacco smoking status NHIS Never smoked tobacco (finding) [facility] Start: 1970 Sex Assigned At Female F [facility] Start: 12-21-2024 Sex Female (finding) [facility] Clinical Notes 08-04-2021 to 12-19-2023 Note Date & Type Note Facility 12-19-2023 Evaluation note Encounter Date Diagnosis Assessment Notes Dec, Contact with and (suspected) exposure to other viral communicable diseases (ICD-10 - Z20.828) Dec, COVID (ICD-10 - U07.1) Rest. Drink plenty of fluids. You may take amdd-xnz-itw nter Tylenol or Motrin as needed for [...] not specified, unspecified location (ICD-10 - J01.90) [employer] Other 09-21-2023 Evaluation note* Encounter Date Diagnosis Assessment Notes Treatment Notes Treatment Clinical Notes Jul, Trigger point of neck (ICD-10 - M54.2) Jul, Trigger point of left shoulder region (ICD-10 - M25.512) 3 trigger points identified with 2 in the left trapezius and 1 in the left upper paraspinal muscle. Trigger point injection performed today and aftercare instruction detail the patient. [employer] Other 08-24-2023 Evaluation note* Encounter Date Diagnosis [...] the trapezius could consider trigger point injections. [employer] Other 01-03-2023 Evaluation note* Encounter Date Diagnosis [...] to use Ventolin inhaler prn for SOB. [employer] Other 12-12-2022 Evaluation note* Encounter Date Diagnosis [...] to treatment. Oct, Wheezing (ICD-10 - R06.2) [employer] Other 11-14-2022 Evaluation note* Encounter Date Diagnosis Assessment Notes Treatment Notes Treatment Clinical Notes Sep, Purulent bronchitis (ICD-10 - J41.1) [employer] Other 08-12-2022 Evaluation note* Encounter Date Diagnosis Assessment Notes Treatment Notes Treatment Clinical Notes Jun, Acute non-recurrent maxillary sinusitis (ICD-10 - J01.00) Patient has an acute sinusitis and has severe sinus inflammation and pressure and to help alleviate this issue quickly she was given an IM Depo-Medrol injection. She can use arkq-reh-juzzakt Flonase and nasal saline irrigation as well to help reduce symptoms. Jun, Purulent bronchitis (ICD-10 - J41.1) Patient has clinical evidence and symptoms suggestive of purulent bronchitis and she will be placed on doxycycline 100 mg twice daily for this issue. She is to call right away if she feels she is worsening or not improving. [employer] Other 03-22-2022 Evaluation note* Encounter Date Diagnosis [...] Above note written by Edgar Anderson LPN, Heat Treat Operator. Edited and approved by Dr. Gordon Aaron [...] negative findings were considered in medical decision-making. [employer] Other 03-01-2022 Evaluation note* Encounter Date Diagnosis [...] bursitis of left hip (ICD-10 - M70.62) [employer] Other 01-11-2022 Evaluation note* Encounter Date Diagnosis [...] voice understanding. Nov, Wheezing (ICD-10 - R06.2) [employer] Other 12-28-2021 Evaluation note* Encounter Date Diagnosis [...] months Oct, Lumbar radiculopathy (ICD-10 - M54.16) [employer] Other 12-05-2021 Evaluation note* Encounter Date Diagnosis [...] Patient care instructions given in writting by [facility] Care At Home document. [employer] Other 11-17-2021 Evaluation note* Encounter Date Diagnosis Assessment Notes Treatment Notes Treatment Clinical Notes Sep, Mixed hyperlipidemia (ICD-10 - E78.2) [employer] Other 10-23-2021 Evaluation note* Encounter Date Diagnosis [...] Patient care instructions given in writting by [facility] Care At Home document [employer] Other 09-22-2021 Evaluation note* Encounter Date Diagnosis [...] screening for cardiovascular disorders (ICD-10 - Z13.6) [employer] Other 09-21-2021 Evaluation note* Encounter Date Diagnosis [...] Jul, Radiculopathy, lumbar region (ICD-10 - M54.16) [employer] Other evaluation [place] Other evaluation noteNo assessment information available [facility] Work Phone: Evaluation note* Diagnosis Onset Date Resolution Status Admit Date Influenza A acute December 21, 2024 4:37pm Contact with or suspected exposure to severe acute respiratory syndrome noneactive December 4:37pm [facility] Work Phone: History general Narrative - Reported* Type Description Date Medical History herpes Medical History asthma Medical History chronic low back pain Surgical History tonsillectomy Surgical History Hyseterectomy 2017 Surgical History Cholecystectomy 2019 Hospitalization History see surgical hx. [employer] Other History general Narrative - Reported* Type Description Date Medical History herpes Medical History asthma Medical History chronic low back pain Medical History sinusitis Medical History migraine headache Surgical History tonsillectomy Surgical History Hyseterectomy 2017 Surgical History Cholecystectomy 2019 Surgical History back surgery 09/30/2021 Hospitalization History see surgical hx. [facility] [employer] Other Reason for Referral Reason *Waiting for appt Evaluate and Treat L Hip Trochanteric Bursitis with Injection Diagnosis 1 Trochanteric bursiti s of left hip (M70.62) Referral Organization [facility] Ne urosurgery Referring Provider First Name Leon Referring Provider Last Name Lisa Referring Provider Specialty Neurologica l Surgery Referred Organization [facility] Pain Managemen t [place] Referred Provider Gordon Aaron Referred Address [address] [place] Referred Provider Specialty Pain Medicin e Referral [...] and content) DATE CREATED AUTHOR 11/16/2022 [facility] DATE CREATED AUTHOR AUTHOR'S ORGANIZ ATION 11/14/2023 [facility] DATE CREATED AUTHOR AUTHOR'S ORGANIZ ATION 06/21/2024 [facility] DATE CREATED AUTHOR AUTHOR'S ORGANAMBROCIO ATION 06/24/2024 [facility] DATE CREATED AUTHOR AUTHOR'S ORGANAMBROCIO [...] BE BASED ON THE PRIMARY CLINICAL RECORDS. [employer] provides no warranty or guarantee of the accuracy or completeness of information in this document.
--- OUTSIDE RECORDS SUMMARY | 2025-04-30 06:56 | XMS_ITS | Patient Health Record ---
Author Organization The [facility] [place] Address [address] [place] [address] Care Team Providers Care Travel Insurance Agent Name Role Phone Carol Miranda Primary Care Provider Allergies Allergen (clinical drug ingredient) Drug/Non Drug Allergy documented on EMR Reaction Allergy Type Onset Date Status amoxicillin Amoxicillin hives Drug Allergy Act crystal Results Component Value Reference Range Notes XR cervical spine 2-3V Reviewed date:04/23/2025 09:50:12 AM Interpretation: Performing Lab: Notes/Report: Source Facility: [place] [address] XRay Report Signed Patient: GABINO NUNO MR#: [id number] : 1970 Acct:[id number] Age/Sex: 55 / F ADM Date: 04/23/25 Loc: LAB Attending Dr: CAROL MIRANDA Ordering Physician: CAROL MIRANDA Date of Service: 04/23/25 Procedure(s): XR cervical spine 2-3V Accession Number(s): [id number] cc: CAROL MIRANDA [address] [address] Patient Name: GABINO NUNO MRN: [id number] date: 1970 Sex: F Assigned Patient Location: LAB Current Patient Location: LAB Accession/Order Number: [id number] Exam Date: 04/23/2025 08:43 Report Date: 04/23/2025 [...] Carlson M.D. 04/23/2025 8:46 AM Dictation Location: [place] [address] Electronically authenticated by: [id number] Date: 04/23/2025 08:46 Dictated By: Tracey Carlson M.D. Signed By: 04/23/2549 DD/ TD/TT: Bench Hand: [place] [address] XRay Report Signed Patient: GABINO NUNO MR#: [id number] : 1970 Acct:[id number] Age/Sex: 55 / F ADM Date: 04/23/25 Loc: LAB Attending Dr: CAROL MIRANDA Ordering Physician: CAROL MIRANDA Date of Service: 04/23/25 Procedure(s): XR cervical spine 2-3V Accession Number(s): [id number] cc: CAROL MIRANDA [place] [id number] Patient Name: GABINO NUNO MRN: [id number] date: 1970 Sex: F Assigned Patient Location: LAB Current Patient Location: LAB Accession/Order Number: [id number] Exam Date: 04/23/2025 08:43 Report Date: 04/23/2025 [...] gs within limits of the available views. XR/XR cervical spine 2-3V IMPRESSION: DEGENERATIVE CHANGES , DESCRIBED. Impression dictated by: Tracey Carlson M.D. 04/23/2025 8:46 AM Dictation Location: [place] [address] Electronically authenticated by: [id number] Y Date: 04/23/2025 08:46 Dictated By: Tracey Carlson M.D. Signed By: 04/23/25 0849 DD/ 0846 TD/TT: Bench Hand: CBC AUTO DIFF Reviewed date:04/23/2025 09:50:12 AM Interpretation: Performing Lab: Notes/Report: [facility] , White Blood Count 10.0 4.0-11.0 10 3/uL Red Blood Count 4.71 4.20-5.40 10 6/uL Hemoglobin 14.3 12.0-16.0 g/dL Hematocrit 43.2 36.0-48.0 % Mean Corpuscular Volume 91.7 81.0-99.0 fL Mean Corpuscular Hemoglobin 30.4 26.7-34.0 pg Mean Corpuscular HGB Conc 33.1 29.9-35.2 g/dL Red Cell Distribution Width 12.8 11.0-15.0 % Platelet Count 331 150-450 10 3/uL Mean Platelet Volume 9.5 9.5-13.5 fL Neutrophils Percent Auto 60.9 43.0-75.0 % Lymphocytes Percent Auto 25.7 20.5-60.0 % Monocytes Percent Auto 6.6 1.7-12.0 % Eosinophils Percent Auto 5.9 0.9-7.0 % Basophils Percent Auto 0.7 0.2-2.0 % Immature Granulocytes Pct Auto 0.2 0.0-0.5 % Neutrophils Absolute Auto 6.1 1.4-6.5 10 3/uL Lymphocytes Absolute Auto 2.6 1.2-3.8 10 3/uL Monocytes Absolute Auto 0.7 0.3-0.8 10 3/uL Eosinophils Absolute Auto 0.6 0.0-0.7 10 3/uL Basophils Absolute Auto 0.1 0.0-0.1 10 3/uL Immature Granulocytes Abs Auto 0.02 0.00-0.03 10 3/uL Performing Lab: see note ML - [facility] FREE T3 Reviewed date:04/23/2025 09:50:12 AM Interpretation: Performing Lab: Notes/Report: [facility] , Free T3 2.71 2.18-3.98 pg/mL Performing Lab: see note ML - [facility] GLYCOHEMOGLOBIN A1C Reviewed date:04/23/2025 09:50:12 AM Interpretation: Performing Lab: Notes/Report: [facility] , Glycohemoglobin A1C 6.0 4.5-6.2 % > 7.0 ADA THERAPEUTIC TARGET < 7.0 ACTION SUGGESTED ADA RECOMMENDED LIMIT 4.0 - 6.0 Estimated Average Glucose 126 Performing Lab: see note ML - [facility] LB IRON Reviewed date:04/23/2025 09:50:12 AM Interpretation: Performing Lab: Notes/Report: [facility] , Iron 60.0 50.0-170.0 ug/dL Performing Lab: see note ML - [facility] LB LIPID PROFILE Reviewed date:04/23/2025 09:50:12 AM Interpretation: Performing Lab: Notes/Report: [facility] , Triglycerides 139 <=150 mg/dL Cholesterol 217 <=200 mg/dL HDL Cholesterol 48 40-60 mg/dL <40 mg/dl - HIGH CARDIOVASCULAR RISK > or =60 mg/dl - LOW CARDIOVASCULAR RISK LDL Cholesterol Calculated 142.0 130-159 mg/dl BORDERLINE HIGH <100 mg/dl OPTIMAL 100-129 mg/dl NEAR OR ABOVE OPTIMAL >190 mg/dl VERY HIGH 160-189 mg/dl HIGH VLDL CHOLESTEROL 27.8 Chol HDL Ratio 4.5 >11.0 HIGH RISK 4.4 - 7.1 AVERAGE RISK 3.3 - 4.4 LOW RISK 7.1 - 11.0 MODERATE RISK Performing Lab: see note - [facility] LB PROF 14(COMP METB) Reviewed date:04/23/2025 09:50:12 AM Interpretation: Performing Lab: Notes/Report: [facility] , Sodium 140 136-145 mmol/L Potassium 4.2 3.5-5.1 mmol/L Chloride 103 98-107 mmol/L Carbon Dioxide 26.2 21.0-32.0 mmol/L Anion Gap 15.0 Glucose 125 74-106 mg/dL Blood Urea Nitrogen 15.0 7.0-18.0 mg/dL Creatinine 0.73 0.55-1.02 mg/dL Estimated GFR ( Nanci >60 >=60 mL/min/1.73m 2 Estimated GFR (Non- Lamar >60 >=60 mL/min/1.73m 2 BUN Creatinine Ratio 20.5 Calcium 9.1 8.5-10.1 mg/dL Bilirubin Total 0.5 0.2-1.0 mg/dL Aspartate Amino Transferase 16 15-37 U/L Alanine Aminotransferase 26 14-59 U/L Alkaline Phosphatase 84 46-116 U/L Total Protein 8.0 6.4-8.2 g/dL Albumin Level 3.5 3.4-5.0 g/dL Globulin 4.5 Albumin Globulin Ratio 0.8 Performing Lab: see note ML - [facility] LB T4 Reviewed date:04/23/2025 09:50:12 AM Interpretation: Performing Lab: Notes/Report: [facility] , T4 Thyroxine 7.20 4.80-13.90 ug/dL Performing Lab: see note ML - [facility] LB TSH Reviewed date:04/23/2025 09:50:12 AM Interpretation: Performing Lab: Notes/Report: [facility] , Thyroid Stimulating Hormone 2.943 0.358-3.740 uIU/mL Performing Lab: see note - [facility] LB VITAMIN D 25 [place] Reviewed date:04/23/2025 11:02:11 AM Interpretation: Performing Lab: Notes/Report: [facility] , Vitamin D 30.2 >100 ng/mL Potential Toxicity 20-<30 ng/mL Vit D insufficient 30-100 ng/mL Vit D sufficient <20 ng/mL Vit D deficient Performing Lab: see note ML - [facility] LB INSULIN Reviewed date:04/24/2025 09:59:04 AM Interpretation: Performing Lab: Notes/Report: [facility] , Insulin 22.9 2.6-24.9 uIU/mL [address] [place], [place] [id number] Mold Car Pusher: Hair Boateng PhD, Phone: [phone] Performed at: - [facility] [place] Performing Lab: see note LC - [facility] LB Reason For Referral Diagnosis 1 Neck pain (M54.2) Ref[facility] Referring Provider First Name Carol Referring Provider Last Name Ruben Referring Provider Speciality Family [facility] freddy Referred Provider Colton Oquendo Referred Provider Specialty Orthopedic S urgery Referral Priority Routine Medications Medication SIG (Take, Route, Frequency, Duration) [...] Question Answer Notes Patient is a nonsmoker Alcohol Screen (Audit-C) Question Answer Notes Did you have a drink containing alcohol in the p ast year? No Points 0 Interpretation Negative AUDIT-C (Standard) Question Answer Notes Did you have a drink containing alcohol in the p ast year? No Points 0 Interpretation Negative Problems Problem Type SNOMED Code ICD Code Onset Dates Problem Status W/U Status Risk Notes Problem Hyperlipidemia (75294242) Hyperlipidemia (E78.5) Active confirmed Problem Asthma (142624632) Asthma (J45.909) Active conf irmed Problem Gastroesophageal reflux disease (894512572) GERD (gastroesophageal reflux disease) (K21.9) Active confirmed Problem Neck pain (28966931) Neck pain (M54.2) Active confirmed Problem Chronic sinusitis (55336620) Chronic sinusitis (J32.9) Active confirmed Problem Prediabetes (725842722) Prediabetes (R73.03) Active confirmed Vital Signs Blood pressure diastolic 72 mm Hg 04/22/2025 Height 65.5 in 04/22/2025 Blood pressure systolic 114 mm Hg 04/22/2025 Weight 207.4 lbs 04/22/2025 BMI 33.98 kg/m2 04/22/2025 Encounters Encounter Location Date Provider Diagnosis [address] [address] 07/31/2024 Carol Miranda Chronic sinusitis J3 2.[address] [address] 04/22/2025 Carol Miranda Lump R22.9 ; Neck pa in M54.2 ; GERD (gastroesophageal reflux disease) K21.9 and Wellness examination Z00.[address] [address] 07/31/2024 Carol Miranda [facility] [address] [place] [address] 10/18/2024 Carol Miranda [facility] [address] [place] [phone] 04/25/2025 Carol Miranda Neck pain M54.2 ; Hyperlipidemia E78.5 and Prediabetes R73.03 Assessments Encounter Date Diagnosis (ICD Code) Assessment Notes Treatment Notes Treatment Clinical Notes Section Notes 07/31/2024 Chronic sinusitis (ICD-10 - J32.9) sx have improved using OTC meds continue monitor 04/22/2025 Neck pain (ICD-10 - M54.2) 04/22/2025 Lump (ICD-10 - R22.9) 04/25/2025 Hyperlipidemia (ICD-10 - E78.5) 04/25/2025 Neck pain (ICD-10 - M54.2) 04/25/2025 Prediabetes (ICD-10 - R73.03) 04/22/2025 GERD (gastroesophageal reflux disease) (ICD-10 - K21.9) 04/22/2025 Wellness examination (ICD-10 - Z00.00) ROS done exam done sees obgyn for paps, mammograms Plan Of Treatment Pending Test Test Name Order Date HEMOGLOBIN A1C (GLYCO) 04/22/2025 IRON, TOTAL 04/22/2025 LIPID PANEL (CHOL/TRIG/HDL/LDL) 04/22/20 25 VITAMIN D, 25 LEVEL (TOTAL) 04/22/2025 Insulin Level 04/22/2025 GLYCOHEMOGLOBIN A1C 04/25/2025 LIPID PROFILE 04/25/2025 THYROID PANEL (T4/TSH/FREE T3) US SOFT TISSUE LIMITED AREA 04/22/2025 CMP (COMP [place]) w/eGFR CKD-EPI 2024 CBC WITH DIFF 04/22/2025 Next Appt Details Provider Name:Carol ventura, 07/23/2025 08:30:00 AM, [address] [place], [address], Insurance Providers Payer Name Payer Address Payer Phone Subscriber Number Group Number Insured Name Patient Relationship to Insured Coverage Start Date Coverage End Date [employer] [address] [place] [address] [id number] kevin yusuf Spouse - patient is the spouse of the insured 7 Medical (General) History Medical History History ICD Code GERD (gastroesophageal reflux disease) K 21.9 Surgical History Surgery Date(Month/Year) tonsillectomy gall bladder removed partial hysterectomy 2014
--- OUTSIDE RECORDS SUMMARY | 2025-04-30 06:56 | XMS_ITS | Clinical Summary ---
Author Organization [employer] tem Address [id number] [address] [place] [address] Care Team Providers Care Bias Cutter Helper Name Role Phone Aly Carty DO Primary Care Provider + [phone] Allergies Active Allergy Reactions Criticality Noted Date Comments Amoxicillin Rash Low 08/31/2023 Medications ibuprofen (MOTRIN) 600 mg tablet Take 1 tablet (600 mg total) by mouth every 6 (six) hours as needed for pain. Active valACYclovir (VALTREX) 500 mg tabletIndicatio ns:Vulvar lesion,HSV (herpes simplex virus) anogenital infection TAKE 1 TABLET AT THE FIRST SIGN OF OUTBREAK, TWICE A DAY FOR 3 DAYS 180 tablet Active Additional Information Patient not taking.Reported on 10/10/2024 omega-3 fatty acids (FISH OIL CONCENTRATE) 1,000 mg capsule Take 2 capsules by mouth in the morning and 2 capsules before bedtime. Active Active Problems Problem Noted Date Diagnosed Date HSV (herpes simplex virus) anogenital infection 08/31/2023 S/P hysterectomy 08/31/2023 Overview (08/31/2023): For heavy bleeding and fibroids Dyspareunia, female 08/31/2023 Family History Medical History Relation Name Comments Heart attack Brother Heart attack Father Breast cancer Mother Parkinsonism Mother Diabetes type II Sister Relation Name Status Comments Brother Father Mother Sister Social History Tobacco Use Types Packs/Day Years Used Date Smoking Tobacco: Never Smokeless Tobacco: Never Tobacco Cessation:Counseling Given: Not Answered Alcohol Use Standard Drinks/Week Comments Yes 0 (1 standard drink = 0.6 oz pur e alcohol) once per year PHQ-2 Answer Date Recorded Total Score 0 10/10/2024 Childcare Answer Date Recorded Childcare Unknown 01/28/2020 Employment Answer Date Recorded Employment Unknown 01/28/2020 Hunger Screening Answer Date Recorded Within the past 12 months we worried whether our food would run out before we got money to buy more. Never True 10/10/2024 Within the past 12 months th e food we bought just didn't last and we didn't have money to get more. Never True 10/10/2024 Purpose - Life Answer Date Recorded Purpose and direction in life Unknown Comments No Sex and Gender Information Value Date Recorded Sex Assigned at Not on file Legal Sex Female 3:32 PM EDT Gender Identity Not on file Sexual Orientation Not on file Last Filed Vital Signs Vital Sign Reading Time Taken Comments Blood Pressure 128/82 10/10/2024 8:15 AM EST Pulse - - Temperature - - Respiratory Rate - - Oxygen Saturation - - Inhaled Oxygen Concentration - - Weight 93.4 kg (206 lb) 10/10/2024 8:15 AM EST Height 170.2 cm (5' 7 ) 10/10/2024 8:15 AM EST Body Mass Index 32.26 10/10/2024 8:15 AM EST Plan of Treatment Upcoming Encounters Date Type Department Care Team (Late st Contact Info) Description 06/14/2025 8:00 AM EDT Appointment [facility] - Mammography/DEXA Imaging [address] [place] [phone] Nella Ang, WIRELESS CONSULTANT-PACKING MACHINE TENDER [address] [place] [address] Health Maintenance Due Date Last Done Comments DTaP,Tdap and Td Vaccines (1 - Tdap) 1988 Zoster (Shingles) Vaccine (1 of 2) 2019 Mammogram 05/26/2021 05/26/2020, 07/2019, 05/15/2018 Influenza Vaccine 07/15/2025 Adult BMI Follow Up Plan 10/10/2025 10/10/2024 Adult BMI Screening 10/10/2025 10/10/2024 Depression Screening 10/10/2025 10/10/2024 Tobacco Screening 10/10/2025 10/10/2024 Medical Devices Not on file Insurance [employer] Care Teams Bias Cutter Helper Relationship Specialty Start Date End Date Aly Carty DO PCP - General Family Medicine 09/07/23
== END 2025-04-30 06:54 | disposition home or self-care (01) ==
LOC: US 06:53
PROVIDERS: PCP Nurse Practitioner Family; Visit Provider Nurse Practitioner Family
DX: M54.2 Cervicalgia (principal); R22.9 Localized swelling, mass and lump, unspecified
CPT/HCPCS: 76536

== ENCOUNTER 2025-08-05 08:06 | Outpatient (OUT) | payer OTHER, SELFPAY ==
--- OUTSIDE RECORDS SUMMARY | 2021-07-23 04:45 | XMS_ITS | Continuity of Care Document ---
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 Template Layout Worker Name Role Phone Colton Stevens Unavailable Unavailable Procedures Procedure Date CHIROPRACTIC MANIPULATION CHIROPRACTIC MANIPULATION CHIROPRACTIC MANIPULATION CHIROPRACTIC MANIPULATION CHIROPRACTIC MANIPULATION CHIROPRACTIC MANIPULATION CHIROPRACTIC MANIPULATION CHIROPRACTIC MANIPULATION CHIROPRACTIC MANIPULATION CHIROPRACTIC MANIPULATION CHIROPRACTIC MANIPULATION CHIROPRACTIC MANIPULATION CHIROPRACTIC MANIPULATION CHIROPRACTIC MANIPULATION CHIROPRACTIC MANIPULATION CHIROPRACTIC MANIPULATION CHIROPRACTIC MANIPULATION CHIROPRACTIC MANIPULATION CHIROPRACTIC MANIPULATION CHIROPRACTIC MANIPULATION CHIROPRACTIC MANIPULATION CHIROPRACTIC MANIPULATION CHIROPRACTIC MANIPULATION CHIROPRACTIC MANIPULATION CHIROPRACTIC MANIPULATION CHIROPRACTIC MANIPULATION CHIROPRACTIC MANIPULATION CHIROPRACTIC MANIPULATION CHIROPRACTIC MANIPULATION TB INTRADERMAL TEST TB INTRADERMAL TEST TB INTRADERMAL TEST Advance Directives Directive Yes / No Effective Date File Name No Information Encounters Encounter Description Practice Location Reason(s) For Visit Diagnoses Date Provider Providers Copied on Encounter [facility], [address] [place] [address], [id number] , tel: [phone] [facility] lumbar spine (chief complaint) lumbar spine (chief complaint) Segmental and somatic dysfunction of lumbar regionRadiculopathy, lumbar regionOther intervertebral disc degeneration, lumbar regionSegmental and somatic dysfunction of cervical region Jul-0 1 Rodney Segura. [address] [place] [address], [id number] , [place]. tel: [phone] [facility], [address] [place] [address], [id number] , tel: [phone] [facility] lumbar spine (chief complaint) lumbar spine (chief complaint) Segmental and somatic dysfunction of lumbar regionRadiculopathy, lumbar regionOther intervertebral disc degeneration, lumbar regionSegmental and somatic dysfunction of cervical region 1 Rodney Segura. [address] [place] [address], [id number] , [place]. tel: [phone] [facility], [address] [place] [address], [id number] , [place] tel: [phone] [facility] lumbar spine (chief complaint) lumbar spine (chief complaint) Segmental and somatic dysfunction of lumbar regionRadiculopathy, lumbar regionOther intervertebral disc degeneration, lumbar regionSegmental and somatic dysfunction of cervical region 1 Rodney Segura. [address] [place] [address], [id number] , [place]. tel: [phone] [facility], [address] [place] [address], [id number] , [place] tel: [phone] [facility] lumbar spine (chief complaint) lumbar spine (chief complaint) Segmental and somatic dysfunction of lumbar regionRadiculopathy, lumbar regionOther intervertebral disc degeneration, lumbar regionSegmental and somatic dysfunction of cervical region 1 Rodney Segura. [address] [place] [address], [id number] , [place]. tel: [phone] [facility], [address] [place], [place], [id number] , [place] tel: [phone] [facility] cervical spine (chief complaint) cervical spine (chief complaint) Segmental and somatic dysfunction of lumbar regionOther intervertebral disc degeneration, lumbar regionSegmental and somatic dysfunction of cervical region 1 Rodney Segura. [address] [place] [address], [id number] , [place]. tel: [phone] [facility], [address] [place] [address], [id number] , [place] tel: [phone] [facility] cervical spine (chief complaint) cervical spine (chief complaint) Segmental and somatic dysfunction of cervical regionCervicalgiaSegm ental and somatic dysfunction of lumbar regionOther intervertebral disc degeneration, lumbar region 1 Rodney Segura. [address] [place] [address], [id number] , [place]. tel: [phone] [facility], [address] [place] [address], [id number] , [place] tel: [phone] [facility] lumbar spine (chief complaint) lumbar spine (chief complaint) Segmental and somatic dysfunction of lumbar regionOther intervertebral disc degeneration, lumbar regionSegmental and somatic dysfunction of cervical region 0 Rodney Segura. [address] [place] [address], [id number] , [place]. tel: [phone] [facility], [address] [place] [address], [id number] , [place] tel: [phone] [facility] cervical spine (chief complaint) cervical spine (chief complaint) Segmental and somatic dysfunction of cervical regionHeadache, unspecifiedSegmental and somatic dysfunction of lumbar regionOther intervertebral disc degeneration, lumbar region 0 Rodney Segura. [address] [place] [address], [id number] , . tel: [phone] [facility], [address] [place] [address], [id number] , [place] tel: [phone] [facility] lumbar spine (chief complaint) lumbar spine (chief complaint) Segmental and somatic dysfunction of lumbar regionLow back painOther intervertebral disc degeneration, lumbar regionSegmental and somatic dysfunction of cervical region 0 Rodney Segura. [address], [place], [id number] , [place]. tel: [phone] [facility], [address] [place] [address], [id number] , [place] tel: [phone] [facility] lumbar spine (chief complaint) lumbar spine (chief complaint) Segmental and somatic dysfunction of lumbar regionLow back painOther intervertebral disc degeneration, lumbar regionSegmental and somatic dysfunction of cervical region 0 Rodney Segura. [address] [place] [address], [id number] , [place]. tel: [phone] [facility], [address] [place] [address], [id number] , tel: [phone] [facility] lumbar spine (chief complaint) lumbar spine (chief complaint) Segmental and somatic dysfunction of lumbar regionLow back painOther intervertebral disc degeneration, lumbar regionSegmental and somatic dysfunction of cervical region 0 Rodney Segura. [address] [place] [address], [id number] , [place]. tel: [phone] [facility], [address] [place] [address], [id number] , [place] tel: [phone] [facility] lumbar spine (chief complaint) lumbar spine (chief complaint) Segmental and somatic dysfunction of lumbar regionLow back painOther intervertebral disc degeneration, lumbar regionSegmental and somatic dysfunction of cervical region 0 Rodney Segura. [address] [place] [address], [id number] , [place]. tel: [phone] [facility], [address] [place] [address], [id number] , [place] tel: [phone] [facility] lumbar spine (chief complaint) lumbar spine (chief complaint) Segmental and somatic dysfunction of lumbar regionLow back painOther intervertebral disc degeneration, lumbar regionSegmental and somatic dysfunction of cervical region 0 Rodney Segura. [address], [place], [id number] , [place]. tel: [phone] [facility], [address], [place], [id number] , [place] tel: [phone] [facility] lumbar spine (chief complaint) lumbar spine (chief complaint) Segmental and somatic dysfunction of lumbar regionLow back painOther intervertebral disc degeneration, lumbar regionSegmental and somatic dysfunction of cervical region 0 Rodney Segura. [address], [place], [id number] , [place]. tel: [phone] [facility], [address] [place] [address], [id number] , [place] tel: [phone] [facility] lumbar spine (chief complaint) lumbar spine (chief complaint) Segmental and somatic dysfunction of lumbar regionLow back painOther intervertebral disc degeneration, lumbar regionSegmental and somatic dysfunction of cervical region 0 Rodney Segura. [address] [place] [address], [id number] , [place]. tel: [phone] [facility], [address] [place] [address], [id number] , [place] tel: [phone] [facility] lumbar spine (chief complaint) lumbar spine (chief complaint) Segmental and somatic dysfunction of lumbar regionLow back painOther intervertebral disc degeneration, lumbar regionSegmental and somatic dysfunction of cervical region 0 Rodney Segura. [address] [place] [address], [id number] , [place]. tel: [phone] [facility], [address] [place] [address], [id number] , [place] tel: [phone] [facility] lumbar spine (chief complaint) lumbar spine (chief complaint) Segmental and somatic dysfunction of lumbar regionLow back painSegmental and somatic dysfunction of cervical region 0 Rodney Segura. [address] [place] [address], [id number] , [place]. tel: [phone] [facility], [address] [place] [address], [id number] , [place] tel: [phone] [facility] lumbar spine (chief complaint) lumbar spine (chief complaint) Segmental and somatic dysfunction of lumbar regionLow back painOther intervertebral disc degeneration, lumbar regionSegmental and somatic dysfunction of cervical region 6 0 Rodney Segura. [address], [place], [id number] , [place]. tel: [phone] [facility], [address], [place], [id number] , [place] tel: [phone] [facility] lumbar spine (chief complaint) lumbar spine (chief complaint) Segmental and somatic dysfunction of lumbar regionLow back painOther intervertebral disc degeneration, lumbar regionSegmental and somatic dysfunction of cervical region 8 9 Rodney Segura. [address] [place] [address], [id number] , [place]. tel: [phone] [facility], [address] [place] [address], [id number] , [place] tel: [phone] [facility] lumbar spine (chief complaint) lumbar spine (chief complaint) Segmental and somatic dysfunction of lumbar regionLow back painSegmental and somatic dysfunction of cervical region 9 Rodney Segura. [address] [place] [address], [id number] , [place]. tel: [phone] [facility], [address] [place] [address], [id number] , [place] tel: [phone] [facility] cervical spine (chief complaint) cervical spine (chief complaint) Segmental and somatic dysfunction of cervical regionHeadacheSegment al and somatic dysfunction of lumbar regionOther intervertebral disc degeneration, lumbar region 0201 9 Rodney Segura. [address] [place] [address], [id number] , [place]. tel: [phone] [facility], [address] [place] [address], [id number] , [place] tel: [phone] [facility] cervical spine (chief complaint) cervical spine (chief complaint) Segmental and somatic dysfunction of cervical regionHeadacheSegment al and somatic dysfunction of lumbar regionOther intervertebral disc degeneration, lumbar region 3-201 9 Rodney Segura. [address], [place], [id number] , [place]. tel: [phone] [facility], [address], [place], [id number] , [place] tel: [phone] [facility] lumbar spine (chief complaint) lumbar spine (chief complaint) Segmental and somatic dysfunction of lumbar regionOther intervertebral disc degeneration, lumbar regionSegmental and somatic dysfunction of cervical region 0 6201 9 Rodney Segura. [address], [place], [id number] , [place]. tel: [phone] [facility], [address] [place] [address], [id number] , [place] tel: [phone] [facility] lumbar spine (chief complaint) lumbar spine (chief complaint) Segmental and somatic dysfunction of lumbar regionOther intervertebral disc degeneration, lumbar regionSegmental and somatic dysfunction of cervical regionHeadache 4 9 Rodney Segura. [address], [place], [id number] , [place]. tel: [phone] [facility], [address], [place], [id number] , [place] tel: [phone] [facility] lumbar spine (chief complaint) lumbar spine (chief complaint) Segmental and somatic dysfunction of lumbar regionOther intervertebral disc degeneration, lumbar regionSegmental and somatic dysfunction of cervical regionHeadache 3 0-201 9 Rodney Segura. [address] [place] [address], [id number] , [place]. tel: [phone] [facility], [address] [place] [address], [id number] , [place] tel: [phone] [facility] lumbar spine (chief complaint) lumbar spine (chief complaint) Segmental and somatic dysfunction of lumbar regionOther intervertebral disc degeneration, lumbar regionSegmental and somatic dysfunction of cervical regionHeadache 2 8-201 9 Rodney Segura. [address] [place] [address], [id number] , [place]. tel: [phone] [facility], [address], [place], [id number] , [place] tel: [phone] [facility] lumbar spine (chief complaint) lumbar spine (chief complaint) Segmental and somatic dysfunction of lumbar regionOther intervertebral disc degeneration, lumbar regionSegmental and somatic dysfunction of cervical regionHeadache 3-201 9 Rodney Segura. [address], [place], [id number] , [place]. tel: [phone] [facility], [address], [place], [id number] , [place] tel: [phone] [facility] lumbar spine (chief complaint) lumbar spine (chief complaint) Segmental and somatic dysfunction of lumbar regionOther intervertebral disc degeneration, lumbar regionSegmental and somatic dysfunction of cervical regionHeadache 1- 9 Rodney Segura. [address] [place] [address], [id number] , [place]. tel: [phone] [facility], [address], [place], [id number] , [place] tel: [phone] [facility] lumbar spine (chief complaint) lumbar spine (chief complaint) Segmental and somatic dysfunction of lumbar regionOther intervertebral disc degeneration, lumbar regionSegmental and somatic dysfunction of cervical regionHeadache 8 9 Rodney Segura. [address] [place] [address], [id number] , [place]. tel: [phone] [facility], [address] [place] [address], [id number] , [place] tel: [phone] [facility] No Information 3 Visci DO Yovani. [address] [place] [address], [id number] , [place]. tel: [phone] [facility], [address] [place] [address], [id number] , [place] tel: [phone] [facility] Screening examination for pulmonary tuberculosis 3 Visci DO Yovani. [address], [place], [id number] , . tel:[phone] Family History Family Member Type Diagnosis Age At Onset No Information Payers Payer name Insurance type Covered green party ID [employer] (s) [id number] Social History Type Description Quantity Date Captured Comments Alcohol Use Details Unknown Caffeine Use Details Unknown Tobacco Use Status No Information Smoking Status No Information Sex Female Sexual Orientation Don't Know Gender Identity Female Chief Complaint And Reason For Visit From encounter dated '07/23/2021 08:45'. lumbar spine (chief complaint) lumbar spine (chief complaint). Description: Pt reports continued pain in low back and hip. MRI demonstrated disc degeneration in lumbar spine Reason For Referral Reason For Referral No Information History Of Present Illness Encounter Date Complaint History Of Prese nt Illness lumbar spine lumbar spine Pt reports klarissa nued pain in low back and hip. MRI demonstrated disc degeneration in lumbar spine lumbar spine lumbar spine Pt reports low b ack and leg was improving over weekend but woke up today sore again lumbar spine lumbar spine Pt reports sligh t improvement since yesterday but still having difficulty walking lumbar spine lumbar spine Pt reports signi ficant flare up of low back/hip pain in left radiating down ant thigh for last two days. No trauma or injury cervical spine cervical spine Pt reports impro vement with neck pain since last visit. cervical spine cervical spine Pt reports kink in right side of neck today. lumbar spine lumbar spine Pt reports delgado ess in low back this week. cervical spine cervical spine Pt reports delgado ess up left side of neck along with migraines 2-3x month lumbar spine lumbar spine Pt reports delgado ess in low back this week. lumbar spine lumbar spine Pt reports flare up of low back pain this morning on the left lumbar spine lumbar spine Pt reports delgado ess in low back and difficulty standing straight from sitting. lumbar spine lumbar spine Pt reports delgado ess in low back this week. lumbar spine lumbar spine Pt reports pain in low back on right extending into right hip after bailing lumbar spine lumbar spine Pt reports impro vement in low back since last visit. lumbar spine lumbar spine Pt reports flare up last week of neck and low back pain. lumbar spine lumbar spine Pt reports feeli ng improvement since yesterday. lumbar spine lumbar spine Pt reports flare up of low back pain preventing her from standing up straight. Pt leaning to right since yesterday. lumbar spine lumbar spine Pt reports doing well for last 3 weeks. Re-check in 1 month. lumbar spine lumbar spine Pt reports doing well up until today. lumbar spine lumbar spine Pt reports delgado ess in low back on right but is improving overall. Re-check in 2 weeks. cervical spine cervical spine Pt reports havin g a good week. Re-check in 2 weeks. cervical spine cervical spine Pt reports impro vement with headaches. lumbar spine lumbar spine Pt presents with improved mobility and movement of SI's. Re-check in 1 week. lumbar spine lumbar spine Pt continues to improve each visit. lumbar spine lumbar spine Pt presents with increased mobility and ROM in neck and low back. lumbar spine lumbar spine Pt reports klarissa nued improvement with neck and low back. lumbar spine lumbar spine Pt continues to progress as anticipated. lumbar spine lumbar spine Pt reports doing well after first visit w/ no adverse effects. lumbar spine lumbar spine C/O chronic low back pain with flare up 2 weeks ago. Has been to neuro 3 times this year with no improvement. Also reports neck pain with chronic headaches with fq of 2x/week. Sx are the result of regular ADL'S. No specific injury or trauma is noted. Pain is primarily at L3-L5 PVM on the Rt. and extends to the SI joint, Rt.Pain is local, dull, and without radiation to the lower extremities. No sensory or motor changes noted. Symptoms present with a pain scale of 10 (VAS = 1-10). Pain interferes with regular ADL's. Increase in pain with movement/ROM and ADL'S. Some decrease in symptoms with rest. No change in the pain pattern from the onset of symptoms. Pain pattern is as prior times. Functional Status Date Functional Assessmen t No Information Instructions Date Instruction Additional Infor mation No Information Assessments Type Assessment Date assessment Segmental and somatic dysfunctio n of lumbar region assessment Radiculopathy, lumbar region Jul assessment Other intervertebral disc degene ration, lumbar region assessment Segmental and somatic dysfunctio n of cervical region impression Patient Care Teams Name Effective Dates (start - stop) Status Members No Information
--- OUTSIDE RECORDS SUMMARY | 2024-12-11 09:30 | XMS_ITS ---
Author Organization [facility] in [place] Address [address] [place] [address] Care Team Providers Care Glove Sewer Name Role Phone Carlo Miranda Primary Care Provider REASON FOR VISIT sinus infection Encounters Encounter Location Date Provider Diagnosis [facility] [address] [place] [address] 12/11/2024 Carol Miranda Plan Of Treatment Next Appt Details Provider Name:Carol ventura, 01/21/2026 08:30:00 AM, [address] [place], [address], Progress Notes * Jason NUNOBettyB: 9 (55 yo F)Acc No.[id number]:12/11/2024 UNLOCKED PROGRESS NOTE Progress Note Patient: Mindi ORTIZ Provider: Олег MAC), MEDICAL CARE EVALUATION SPECIALIST :1970 A ge:54 Y S ex:Female Date:12/11/2024 Address:[address] [place] [address], [facility] Subjective: * Chief Complaints: * 1 . Sinus infection. * Medical History: Objective: * Vitals: Assessment: Plan: * Treatment: * * Electronic signature of Estrellita Acosta NP, HEARING THERAPIST.MEDICAL CARE EVALUATION SPECIALIST.[id number] on 08/05/2025 at 08:10 AM EDT Sign off status: Pending Visit Status: C ANC (Cancelled) * Provider: Олег MAC), MEDICAL CARE EVALUATION SPECIALIST Date: 0 12/11/2024 Generated for Tino peña/Sebastian/Chance on: 0 08/05/2025 08:10 AM EDT
--- OUTSIDE RECORDS SUMMARY | 2025-07-23 04:30 | XMS_ITS ---
Author Organization The [facility] in [place] Address [address] [place] [address] Care Team Providers Care Pond Sawyer Name Role Phone Ruben Carol Primary Care Provider [phone] Allergies Allergen (clinical drug ingredient) Drug/Non Drug Allergy documented on EMR Reaction Allergy Type Onset Date Status amoxicillin Amoxicillin hives Drug Allergy Act crystal REASON FOR VISIT 3 month follow up Medications Medication SIG (Take, Route, Frequency, Duration) Notes Start Date End Date Status Flonase Active Vitamin E 1000 UNIT as directed Orally 04/22/2025 Active Omeprazole 40 MG 1 capsule 1/2 to 1 hour before morning meal Orally Once a day; Duration: 90 days 04/22/2025 Active Azithromycin 250 MG as directed Orally daily; Duration: 5 days take 2 tablets po on first day than 1 tablet po days 2-5 07/23/2025 Active Albuterol Sulfate HFA 108 (90 Base) MCG/ACT INHALE 1 PUFF INTO THE LUNGS EVERY 4 HOURS NEEDED FOR 30 DAYS; Duration: 30 Active Social History Tobacco Use: Social History Observation Description Date Details (start date - stop date) Never Smoker NA - NA Tobacco Use/Smoking Question Answer Notes Patient is a nonsmoker AUDIT-C (Standard) Question Answer Notes Did you have a drink containing alcohol in the p ast year? No Points 0 Interpretation Negative Problems Problem Type SNOMED Code ICD Code Onset Dates Problem Status W/U Status Risk Notes Problem Sinusitis (07973171) Sinusitis (J32.9) Active confirmed Vital Signs Weight 210.4 lbs 07/23/2025 Height 65.5 in 07/23/2025 Blood pressure systolic 112 mm Hg 07/23/20 25 Blood pressure diastolic 72 mm Hg 025 BMI 34.48 kg/m2 07/23/2025 Encounters Encounter Location Date Provider Diagnosis [address] [address] 07/23/2025 Carol Ruben Sinusitis J32.9 ; Hyperlipidemia E78.5 and Prediabetes R73.03 Assessments Encounter Date Diagnosis (ICD Code) Assessment Notes Treatment Notes Treatment Clinical Notes Section Notes 07/23/2025 Sinusitis (ICD-10 - J32.9) fu if not improving 07/23/2025 Hyperlipidemia (ICD-10 - E78.5) 07/23/2025 Prediabetes (ICD-10 - R73.03) Plan Of Treatment Medication Medication Name Sig Start Date Stop Date Notes Azithromycin 250 MG as directed Orally daily; Duration: 5 days 07/23/2025 take 2 tablets p o on first day than 1 tablet po days 2-5 Treatment Notes Assessment Notes Sinusitis fu if not improving Pending Test Test Name Order Date HEMOGLOBIN A1C (GLYCO) 07/23/2025 LIPID PANEL (CHOL/TRIG/HDL/LDL) 07/23/20 25 Next Appt Details Follow Up: prn, Reason: Provider Name:Carol ventura, 01/21/2026 08:30:00 AM, [address] [place] [address], [phone], Progress Notes * Annika NUNOB: 9 (55 yo F)Acc No.[id number]:07/23/2025 Progress Note Patient: Joe Mindi BARNETT Provider: Олег Miranda ([facility]), COMMERCIAL ART INSTRUCTOR :1970 A ge:55 Y S ex:Female Date:07/23/2025 Address:[address] [place] [address], [id number] Check In:08:06 AM ESTCheck O ut:08:42 AM EST Subjective: * Chief Complaints: * 1 . 3 month follow up. * HPI: G eneral: sinus sx 2nd week now pain getting worse other day had pain, tingling in right arm no other concerns today omeprazole , helps with sx she was having a lot. * ROS: G eneral/Constitutional: Fever d enies. H eadache d enies. W eight loss?denies. O phthalmologic: Discharge d enies. E ye Pain d enies. I tching and redness d enies. E NT: Nasal discharge a dmits. N samantha congestion a dmits and sinus pain, pain into teeth, more on right. S ore throat d enies. C ardiovascular: Chest tightness/ heavy pressure d enies. R apid heart rate d enies. S welling of extremities d enies. C hest pain d enies. ? R espiratory: Productive cough d enies. C hest pain d enies. C ough d enies. S hortness of breath d enies. W heezing d enies. ? G astrointestinal: Abdominal pain d enies. C onstipation d enies. D ecreased appetite d enies. D iarrhea d enies. N ausea d enies. V omiting?denies. G enitourinary: Urinary incontinence d enies. P ainful urination d enies. M usculoskeletal: Back pain d enies. N binu pain d enies. M uscle aches d enies. S kin: Rash d enies. S kin lesion(s) d enies. ? * Active Problem List J32.9 Chronic sinusitis Modified On:07/31/2024/U Status:confirmed J45.909 Asthma Modified On:10/19/2024U Status:confirmed M54.2 Neck pain Modified On:04/22/2025/U Status:confirmed K21.9 GERD (gastroesophage al reflux disease) Modified On:04/22/2025U Status:confirmed R73.03 Prediabetes Modified On:04/25/2025/U Status:confirmed E78.5 Hyperlipidemia Modified On:04/25/2025U Status:confirmed J32.9 Sinusitis Modified On:07/23/2025 Status:confirmed * Medical History: G ERD (gastroesophageal reflux disease). * Surgical History: p artial hysterectomy 2015, tonsillectomy , gall bladder removed . * Family History: F ather: , Heart [...] Use/Smoking P atient is a n onsmoker D rug/Alcohol: A CALLY-C (Standard) D id you have a drink containing alcohol in the past year? N o P oints 0 I nterpretation N egative * Medications: T aking Albuterol Sulfate HFA 108 (90 Base) MCG/ACT Aerosol Solution INHALE 1 PUFF INTO THE LUNGS EVERY 4 HOURS NEEDED FOR 30 DAYS , Taking Flonase , Taking Omeprazole 40 MG Capsule Delayed Release 1 capsule 1/2 to 1 hour before morning meal Orally Once a day , Taking Vitamin E 1000 UNIT Capsule as directed Orally , Medication List reviewed and reconciled with the patient * Allergies: A moxicillin: hives - Allergy. Objective: * Vitals: W t:210.4lbs, Ht: 65.5 in, BP:112/72mm Hg, BMI:34.48Index, Ht-cm: 166.37 cm, Wt- k.44 kg. * Examination: G eneral Examinations: GENERAL APPEARANCE: a lert and oriented, i n no acute distress. EYES: c onjunctiva normal, sclera non-icteric. NOSE: m ild congestion, sinus pain with palpation on right.? LUNGS: c lear to auscultation bilaterally. CARDIO: r egular rate and rhythm, S1, S2 normal. ABDOMEN: s oft, nontender. MUSCULOSKELETAL: G ait and station normal. SKIN: w arm and dry. Assessment: * Assessment: 1. S inusitis - J32.9 (Primary) 2 . H yperlipidemia - E78.5 ?3. P rediabetes - R73.03 Plan: * Treatment: 2. H yperlipidemia L AB: LIPID PANEL (CHOL/TRIG/HDL/LDL) 3. P rediabetes L AB: HEMOGLOBIN A1C (GLYCO) * Preventive Medicine: Screenings/Counseling: B [place] ACTION PLAN Above Normal BMI Follow-up D ietary management education, guidance, and counseling * Follow Up: p rn * * Electronically signed by Leelee Miranda , BASKETBALL SCOUT, IT SYSTEMS ANALYST CONSULTANT.COMMERCIAL ART INSTRUCTOR.[id number] on 07/23/2025 at 02:02 PM EDT Sign off status: Completed Visit Status: C HK (Check Out) true * Provider: Олег Miranda ([facility]), COMMERCIAL ART INSTRUCTOR Date: 07/23/2025 Generated for Printi ng/Faxing/eTransmitting on: 08/05/2025 08:10 AM EDT History and Physical Notes * HPI (History of Present Illness) Category Sub-Category Detail Notes Category Not es General sinus sx 2nd week now pain getting worse other day had pain, tingling in right arm no other concerns today omeprazole , helps with sx she was having a lot Examination Category Sub-Category Detail Notes Category Not es General Examinations GENERAL APPEARANCE: alert a nd oriented, in no acute distress EYES: conjunctiva normal, sclera non-icteric EARS: NOSE: mild congestion, sin us pain with palpation on right THROAT: CARDIO: regular rate and rhy thm, S1, S2 normal LUNGS: clear to auscultatio n bilaterally ABDOMEN: soft, nontender SKIN: warm and dry BACK: MUSCULOSKELETAL: Gait and station nor mal LYMPH NODES:
--- OUTSIDE RECORDS SUMMARY | 2025-08-05 08:11 | XMS_ITS | Clinical Summary ---
Author Organization [facility] Address [address] [place] [address] Care Team Providers Care Reverberatory Furnace Supervisor Name Role Phone Víctor Darling MD Primary Care Provider [phone] Petra Hernandez EXECUTIVE PRODUCER PROMOS Unavailable [phone] Allergies Active Allergy Reactions Criticality Noted Date Comments Amoxicillin Rash Low 08/31/2023 Medications valACYclovir (Valtrex) 500 MG tablet TAKE 1 TABLET AT THE FIRST SIGN OF OUTBREAK, TWICE A DAY FOR 3 DAYS Active fish oil concentrate ([place]-3) 1000 MG capsuleIndication s:Hypertriglyceri demia,Mixed dyslipidemia Take [...] 05/15, 05/26/2020, Additional history exists Influenza Vaccine (#1) 2025 Colonoscopy 05/22/2031 05/22/2021 Colorectal Cancer Screening [...] PM EDT) Anatomical Region Laterality Modality Radiographic Constacne ging Narrative 06/07/2022 12:00 PM EDT PERFORMED AT [facility] LOCATION:[id number] Procedure Note CONVERSION, GENERIC - 05/20/2023 PERFORMED AT [facility] LOCATION:[id number] us Chidi Huitron MD IMG XR PROCEDURES Final Resu lt * Colonoscopy (05/22/2021 12:00 PM EDT) Anatomical Region Laterality Modality Endoscopy 05/22/2021 12:0 0 PM EDT Narrative 05/22/2021 12:00 PM EDT PERFORMED AT [facility] LOCATION:[id number] Procedure Note CONVERSION, GENERIC - 03/30/2023 PERFORMED AT [facility] LOCATION:[id number] us Chidi Huitron MD ENDOSCOPY PROCEDURE ORDERABL ES Final Result from Last 3 Months or Most Recently Relevant to Health Maintenance Insurance [employer] Care Teams Reverberatory Furnace Supervisor Relationship Specialty Start Date End Date Víctor Darling MD PCP - General Family Medicine 06/13/24 Petra Hernandez NP Nurse Practitioner Family Medicine 06/13/24
--- OUTSIDE RECORDS SUMMARY | 2025-08-05 08:11 | XMS_ITS | Clinical Summary ---
Author Organization [employer] tem Address [id number] [address] [place] [address] Care Team Providers Care Surgical Physician Assistant Name Role Phone Carol Miranda APPLIANCE SERVICE REPRESENTATIVE-COIL CONNECTOR REPAIRER Primary Care Provider Allergies Active Allergy Reactions Criticality Noted Date [...] heavy bleeding and fibroids Dyspareunia, female 08/31/2023 Encounters Date Type Department Care Team Description 06/14/2025 Travel from Last 3 Months Family History Medical History Relation Name Comments [...] 10/10/2024 8:15 AM EST Plan of Treatment Health Maintenance Due Date Last Done Comments DTaP,Tdap and Td Vaccines (1 - Tdap) 1988 Zoster (Shingles) Vaccine (1 of 2) 2019 Influenza Vaccine 07/15/2025 Adult BMI Follow Up Plan 10/10/2025 10/10/2024 Adult BMI Screening 10/10/2025 10/10/2024 Depression Screening 10/10/2025 10/10/2024 Tobacco Screening 10/10/2025 10/10/2024 Mammogram 06/14/2026 06/14/2025, 080 03/2024, 06/13/2023, Additional history exists Medical Devices Not on file Procedures Procedure Name Priority Date/Time Associated Diagnosis Comments MAMM SCREENING BILATERAL W CAD Routine 06/18/2024 6:50 AM EDT Encounter for mammogram to establish baseline mammogram from Last 3 Months or Most Recently Relevant to Health Maintenance Results * Mammography screening bilateral with CAD (06/18/2024 6:50 AM EDT) us Scanning Provider External IMG MAMMOGRAPHY ORDER ALICE Final Result from Last 3 Months or Most Recently Relevant to Health Maintenance Insurance [employer] Care Teams Surgical Physician Assistant Relationship Specialty Start Date End Date Carol Miranda, APPLIANCE SERVICE REPRESENTATIVE-COIL CONNECTOR REPAIRER [address] [facility] [place] [address] PCP - General Family Medicine 06/14/25
--- OUTSIDE RECORDS SUMMARY | 2025-08-05 08:11 | XMS_ITS | Patient Health Record ---
Author Organization The [facility] in [place] Address [address] [place] [address] Care Team Providers Care Electromechanisms Design Drafter Name Role Phone Carol Miranda Primary Care Provider [phone] Allergies Allergen (clinical drug ingredient) Drug/Non Drug Allergy documented on EMR Reaction Allergy Type Onset Date Status amoxicillin Amoxicillin hives Drug Allergy Act crystal Results Component Value Reference Range Notes CBC AUTO DIFF Reviewed date:04/23/2025 09:50:12 AM Interpretation: Performing Lab: Notes/Report: [facility] , White Blood Count 10.0 4.0-11.0 [...] 3/uL Performing Lab: see note ML - [facility] US soft tissue head and neck Reviewed date:05/02/2025 10:41:39 AM Interpretation: Performing Lab: Notes/Report: Source Facility: [place] [address] Ultrasound Report Signed Patient: GABINO NUNO MR#: [id number] : 1970 Acct:[id number] Age/Sex: 55 / F ADM Date: 04/30/25 Loc: US Attending Dr: CAROL MIRANDA Ordering Physician: CAROL MIRANDA Date of Service: 04/30/25 Procedure(s): US soft tissue head and neck Accession Number(s): [id number] cc: CAROL MIRANDA [place] [address] Patient Name: GABINO NUNO MRN: [id number] date: 1970 Sex: F Assigned Patient Location: US Current Patient Location: US Accession/Order Number: [id number] Exam Date: 04/30/2025 08:50 Report Date: 04/30/2025 08:52 At the request of: CAROL MIRANDA Procedure: US soft tissue head and neck LIMITED ULTRASOUND - left clavicle CLINICAL DATA: Chronic palpable lump near the left clavicle for the past year. COMPARISON: None Real-time ultrasound evaluation of the area of palpable concern was performed. Right side was also viewed for comparison. There are no discrete cystic or solid subcutaneous masses. No ultrasound abnormalities are visualized at the site of palpable concern. The informatics coordinator indicated that the palpable finding might be osseous. US/US soft tissue head and neck IMPRESSION: NO SIGNIFICANT ULTRASOUND FINDINGS AT THE SITE OF PALPABLE CONCERN. CLINICAL MANAGEMENT IS SUGGESTED. Impression dictated by: Tracey Carlson M.D. 04/30/2025 8:52 AM Dictation Location: [place] [address] Electronically authenticated by: [id number] Y Date: 04/30/2025 08:52 Dictated By: Tracey Carlson M.D. Signed By: 04/30/2555 DD/ 1 TD/TT: Auto Research Engineer: VITAMIN D 25 [place] Reviewed date:04/23/2025 11:02:11 AM Interpretation: Performing Lab: Notes/Report: [facility] , Vitamin D 30.2 <20 ng/mL Vit D deficient 20-<30 ng/mL Vit D insufficient 30-100 ng/mL Vit D sufficient >100 ng/mL Potential Toxicity Performing Lab: see note ML - [facility] LB TSH Reviewed date:04/23/2025 09:50:12 AM Interpretation: Performing Lab: Notes/Report: [facility] , Thyroid Stimulating Hormone 2.943 0.358-3.740 u IU/mL Performing Lab: see note ML - [facility] LB T4 Reviewed date:04/23/2025 09:50:12 AM Interpretation: Performing Lab: Notes/Report: [facility] , T4 Thyroxine 7.20 4.80-13.90 ug/dL Performing Lab: see note ML - [facility] LB PROF 14(COMP METB) Reviewed date:04/23/2025 09:50:12 AM Interpretation: Performing Lab: Notes/Report: [facility] , Sodium 140 136-145 mmol/L Potassium [...] 0.8 Performing Lab: see note ML - [facility] LIPID PROFILE Reviewed date:04/23/2025 09:50:12 AM Interpretation: Performing Lab: Notes/Report: [facility] , Triglycerides 139 <=150 mg/dL Cholesterol 217 <=200 mg/dL HDL Cholesterol 48 40-60 mg/dL > or =60 mg/dl - LOW CARDIOVASCULAR RISK <40 mg/dl - HIGH CARDIOVASCULAR RISK LDL Cholesterol Calculated 142.0 <100 mg/dl OPTIMAL 100-129 mg/dl NEAR OR ABOVE OPTIMAL 130-159 mg/dl BORDERLINE HIGH 160-189 mg/dl HIGH >190 mg/dl VERY HIGH VLDL CHOLESTEROL 27.8 Chol HDL Ratio 4.5 3.3 - 4.4 LOW RISK 4.4 - 7.1 AVERAGE RISK 7.1 - 11.0 MODERATE RISK >11.0 HIGH RISK Performing Lab: see note ML - [facility] IRON Reviewed date:04/23/2025 09:50:12 AM Interpretation: Performing Lab: Notes/Report: [facility] , Iron 60.0 50.0-170.0 ug/dL Performing Lab: see note ML - [facility] LB INSULIN Reviewed date:04/24/2025 09:59:04 AM Interpretation: Performing Lab: Notes/Report: [facility] , Insulin 22.9 2.6-24.9 uIU/mL Performed at: - [facility] [address] [id number] Electromechanisms Design Drafter: Hair Boateng PhD, Phone: [phone] Performing Lab: see note - [facility] LB GLYCOHEMOGLOBIN A1C Reviewed date:04/23/2025 09:50:12 AM Interpretation: Performing Lab: Notes/Report: [facility] , Glycohemoglobin A1C 6.0 4.5-6.2 % ADA RECOMMENDED LIMIT 4.0 - 6.0 ADA THERAPEUTIC TARGET < 7.0 ACTION SUGGESTED > 7.0 Estimated Average Glucose 126 Performing Lab: see note ML - [facility] FREE T3 Reviewed date:04/23/2025 09:50:12 AM Interpretation: Performing Lab: Notes/Report: [facility] , [facility] T3 2.71 2.18-3.98 pg/mL Performing Lab: see note ML - [facility] LB XR cervical spine 2-3V Reviewed date:04/23/2025 09:50:12 AM Interpretation: Performing Lab: Notes/Report: Source Facility: [place] [address] XRay Report Signed Patient: GABINO NUNO MR#: [id number] : 1970 Acct:[id number] Age/Sex: 55 / F ADM Date: 04/23/25 Loc: LAB Attending Dr: CAROL MIRANDA Ordering Physician: CAROL MIRANDA Date of Service: 04/23/25 Procedure(s): XR cervical spine 2-3V Accession Number(s): [id number] cc: CAROL MIRANDA [place] [address] Patient Name: GABINO NUNO MRN: [id number] date: 1970 Sex: F Assigned Patient Location: LAB Current Patient Location: LAB Accession/Order Number: [id number] Exam Date: 04/23/2025 08:43 Report Date: 04/23/2025 [...] Carlson M.D. 04/23/2025 8:46 AM Dictation Location: [place] [address] Electronically authenticated by: [id number] Y Date: 04/23/2025 08:46 Dictated By: Tracey Carlson M.D. Signed By: 04/23/2549 DD/ 5 TD/TT: Auto Research Engineer: Reason For Referral Diagnosis 1 Neck pain (M54.2) Referral Organization [facility] Referring Provider First Name Carol Referring Provider Last Name Ruben Referring Provider [facility] Referred Provider Colton Oquendo Referred Provider Specialty [...] Status W/U Status Risk Notes Problem Hyperlipidemia (00426808) Hyperlipidemia (E78.5) Active confirmed Problem Asthma (813705085) Asthma (J45.909) Active conf irmed Problem Gastroesophageal reflux disease (835867475) GERD (gastroesophageal reflux disease) (K21.9) Active confirmed Problem Neck pain (21004470) Neck pain (M54.2) Active confirmed Problem Sinusitis (82630669) Sinusitis (J32.9) Active confirmed Problem Chronic sinusitis (51814010) Chronic sinusitis (J32.9) Active confirmed Problem Prediabetes (360081435) Prediabetes (R73.03) Active confirmed Vital Signs Blood pressure diastolic 72 mm Hg 07/23/2025 Height 65.5 in 07/23/2025 Blood pressure systolic 112 mm Hg 07/23/2025 Weight 210.4 lbs 07/23/2025 BMI 34.48 kg/m2 07/23/2025 Encounters Encounter Location Date Provider Diagnosis [address] [address] 10/18/2024 Carol Miranda [address] [address] 04/25/2025 Carol Miranda Neck pain M54.2 ; Hyperlipidemia E78.5 and Prediabetes R73.[address] [address] 05/02/2025 Carol Miranda [facility] [address] [place] [address] 07/04/2025 Carol Miranda [address] [address] 08/02/2025 Carol Miranda [address] [address] 04/22/2025 Carol Miranda Lump R22.9 ; Neck pa in M54.2 ; GERD (gastroesophageal reflux disease) K21.9 and Wellness examination Z00.[address] [address] 07/23/2025 Carol Miranda Sinusitis J32.9 ; Hyperlipidemia E78.5 and Prediabetes R73.03 Assessments Encounter Date Diagnosis (ICD Code) Assessment Notes Treatment Notes Treatment Clinical Notes Section Notes 04/22/2025 Lump (ICD-10 - R22.9) 04/22/2025 Neck pain (ICD-10 - M54.2) 07/23/2025 Sinusitis (ICD-10 - J32.9) fu if not improving 04/25/2025 Neck pain (ICD-10 - M54.2) 04/25/2025 Hyperlipidemia (ICD-10 - E78.5) 04/25/2025 Prediabetes (ICD-10 - R73.03) 07/23/2025 Hyperlipidemia (ICD-10 - E78.5) 04/22/2025 GERD (gastroesophageal reflux disease) (ICD-10 - K21.9) 04/22/2025 Wellness examination (ICD-10 - Z00.00) ROS done exam done sees obgyn for paps, mammograms 07/23/2025 Prediabetes (ICD-10 - R73.03) Plan Of Treatment Pending Test Test Name Order Date HEMOGLOBIN A1C (GLYCO) 04/22/2025 HEMOGLOBIN A1C (GLYCO) 07/23/2025 IRON, TOTAL 04/22/2025 LIPID PANEL (CHOL/TRIG/HDL/LDL) 04/22/20 25 LIPID PANEL (CHOL/TRIG/HDL/LDL) 07/23/20 25 VITAMIN D, 25 LEVEL (TOTAL) 04/22/2025 Insulin Level 04/22/2025 GLYCOHEMOGLOBIN A1C 04/25/2025 LIPID PROFILE 04/25/2025 THYROID PANEL (T4/TSH/FREE T3) 5 US SOFT TISSUE LIMITED AREA 04/22/2025 CMP (COMP [place]) w/eGFR CKD-EPI 2024 CBC WITH DIFF 04/22/2025 Next Appt Details Provider Name:Carol ventura, 01/21/2026 08:30:00 AM, [address] [place], [address], Insurance Providers Payer Name Payer Address Payer Phone Subscriber Number Group Number Insured Name Patient Relationship to Insured Coverage Start Date Coverage End Date JE CARRILLO [id number] REBEKAH CALIX [id number] kevin yusuf Spouse - patient is the spouse of the insured 7 Medical (General) History Medical History History ICD Code GERD (gastroesophageal reflux disease) K 21.9 Surgical History Surgery Date(Month/Year) tonsillectomy gall bladder removed partial hysterectomy 2014
--- OUTSIDE RECORDS SUMMARY | 2025-08-05 08:13 | XMS_ITS | CCD ---
Author Organization [facility] CliniSyvt Care Team Providers Care Civil Design Specialist Name Role Phone Anne Lv Unavailable Leon Puente Unavailable Angelbruna Carmen Unavailable Lv Rodríguez Unavailable Gordon Hernandez Unavailable Gordon Aaron Unavailable Self, Referral Attending Provider Unavailable DO Lv Rodríguez Primary Care Provider [phone] DR JAYLYN LARSEN V Admitting Unavailable DR JAYLYN LARSEN V Attending Unavailable DR MORENA LACY Primary Care Unavailable DR JAYLYN LARSEN V Consulting Unavailable DO Lv Rodríguez Primary Care Provider DEEPIKA Hurd Attending Provider Yovani Hurd Unavailable DO Lv Rodríguez Primary Care Provider DO Lv Rodríguez Referring Provider [phone] Self, Referral Attending Provider Unavailable DO Lv Rodríguez Attending Provider Maryann Krueger Unavailable DO Lv Rodríguez Primary Care Provider Self, Referral Attending Provider Unavailable JAY BELL Attending Unavailcony e LV RODRÍGUEZ Referring Unavailable LV RODRÍGUEZ Primary Care Unavailable LV RODRÍGUEZ Referring Unavailable LV RODRÍGUEZ Primary Care Unavailable MORENA LACY Referring Unavailable MORENA LACY Primary Care Unavailable MORENA LACY Referring Unavailable MORENA LACY Primary Care Unavailable ISSA KO Attending Unavailable ISSA KO Referring Unavailable CAROL SWEET Primary Care Unavailable Self, Referral Attending Provider Unavailable Carol Bello Primary Care Provider [phone] Ruben LONG WALL MINING MACHINE HELPERCarol Hernandez Referring Provider Self, Referral Attending Unavailable Carol Sweet Primary Care Unavailable Carol Sweet Referring Unavailable Self, Referral Admitting Unavailable Allergies Allergy Classification Reported Allergen(s) Allergy Type Date of Onset Reaction(s) Facility (20 sources) Amoxicillin; Translations: [AMOXICILLIN] Drug Allergy 08-31-2023 rash [facility] Repository (1 source) Amoxicillin Drug Allergy 12-21-2024 [facility] Repository Medications Current Medications Medication Drug Class(es) Dates Sig (Normalized) Sig (Original) [id number] 200 actuat albuterol 0.09 mg/actuat metered dose inhaler (12 sources) beta2-Adrenergic Agonist Start: 12-21-2024 Start: 11-24-2021 take 1 puff(s) by in [...] Nov, Active cephalexin 500 mg oral capsule (11 sources) Cephalosporin Antibacterial Start: 12-19-2023 take 1 capsule by mouth every six hours Cephalexin 500 MG 1 capsule Orally Four times a day for 5 day(s) Dec, Active Start: 09-14-2023 take 1 capsule by mo [facility] every eight hours Cephalexin 500 MG 1 capsule Orally tid for 10 day(s) Sep, Active Start: 09-30-2021 End: 10-26-2021 take 1 capsule by mouth three times daily Cephalexin 500 mg capsule Discontinued 500 MG PO Three times daily September 30, 2021 1:00am October 26, 2021 1:04pm cyclobenzaprine hydrochloride 10 mg oral tablet (19 sources) Muscle Relaxant Start: 11-16-2022 take 1 [...] needed for back spasms September 30, 2021 1:00am March 19, 2024 9:39am take 1 tablet by [facility] every twenty-four hours Cyclobenzaprine HCl 10 MG [...] propionate 0.05 mg/actuat metered dose nasal spray (10 sources) Corticosteroid Start: 03-19-2024 take 1 spray(s) nasal route once daily take 1 spray(s) nasal route once daily Flonase Allergy Relief 50 MCG/ACT 1 spray in each nostril Nasally Once a day Active gabapentin 300 mg oral capsule (20 sources) Anti-epileptic Agent Start: 09-18-2021 End: 03-19-2024 take 2 capsules by mouth three times daily as needed Start: 09-18-2021 End: 03-19-2024 take 600 mg by mouth three times daily Gabapentin Active 600 MG PO Three times daily March 19, 2024 9:40am take 1 capsule by mo [facility] every twenty-four hours Gabapentin 300 MG 1 capsule Orally Once a day Not-Taking ibuprofen 200 mg oral tablet (20 sources) Nonsteroidal Anti-inflammatory Drug Start: 09-18-2021 take 2 tablets by mouth once daily as needed Start: 09-18-2021 take 400 mg by mouth once milena y Ibuprofen Active 400 MG PO Daily September 18, 2021 12:00am [facility] daily at mealtime as needed [...] Aug, Not-Taking oseltamivir 75 mg oral capsule (2 sources) Neuraminidase Inhibitor Start: 12-21-2024 take 1 capsule by mouth twice daily predniSONE 20 mg oral tablet (20 sources) Start: 09-14-2023 take 1 tablet by mouth every twelve hours predniSONE 20 MG 1 tablet Orally bid for 5 day(s) Sep, Active Start: 07-07-2023 take 2 tablets by [facility] every twenty-four hours predniSONE 20 MG 2 [...] 10 MG PO Daily November 03, 2021 1:00am March 19, 2024 9:41am 60mg daily for three days, 40mg daily for three days, 20mg daily for three days, 10mg daily for three days. Start: 10-18-2021 take 2 tablets by [facility] every twenty-four hours predniSONE 20 MG 2 [...] Start: 06-25-2022 take 1 tablet by charlie every twelve hours Doxycycline Hyclate 100 MG 1 tablet Orally Twice a day for 10 day(s) Jun, Active estrogens, conjugated (nursing home) 0.3 mg oral tablet (8 sources) Estrogen Start: 09-18-2021 End: 03-19-2024 take 1 tablet by mouth once daily in the morning Conjugated Estrogens (Premarin) 0.3 mg Tablet Discontinued 0.3 MG PO Every morning September 18, 2021 12:00am March 19, 2024 9:39am hydrocortisone acetate 25 mg rectal suppository (8 sources) Corticosteroid Start: 05-22-2021 End: 09-18-2021 Hydrocortisone Acetate 25 mg suppository Discontinued 25 MG OR Twice daily 06 06May 22, 2021 12:00am September 18, 2021 1:31pm hydrOXYzine hydrochloride 25 mg oral tablet (8 sources) Antihistamine Start: 11-03-2021 End: 03-19-2024 take 1 tablet by mouth every six hours as needed Hydroxyzine Hcl 25 mg tablet Discontinued 25 MG PO Q6H as needed for itching November 03, 2021 1:00am March 19, 2024 9:41am omeprazole 40 mg delayed release oral capsule (16 sources) Proton Pump Inhibitor Start: 05-22-2021 End: 03-19-2024 take 1 capsule by mouth twice daily Omeprazole 40 mg capsule,delayed release(DR/EC) Discontinued 40 MG PO Twice daily 168 84 May 22, 2021 12:00am March 19, 2024 9:41am take 1 capsule by mouth once noemi ly Omeprazole 40 MG 1 capsule 30 minutes before morning meal Orally Once a day Active ondansetron 4 mg oral tablet (8 sources) Serotonin-3 Receptor Antagonist Start: 10-26-2021 End: 03-19-2024 take 1 tablet by mouth every eight hours as needed for nausea and vomiting Ondansetron Hcl (Zofran) 4 mg tablet Discontinued 4 MG PO Q8H as needed for nausea and vomiting 12 October 26, 2021 1:00am March 19, 2024 9:41am oxyCODONE hydrochloride 5 mg oral tablet (11 sources) Opioid Agonist Start: 09-30-2021 End: 10-26-2021 take 5-10 mg by mouth every six hours as needed for pain Oxycodone 5 mg Tablet Discontinued 5 - 10 MG PO Q6H as needed for Pain 40 8 September 30, 2021 October 26, 2021 1:04pm pseudoephedrine hydrochloride 60 mg oral tablet (20 sources) alpha-Adrenergic Agonist Start: 03-19-2024 End: 12-21-2024 take 1 tablet by mouth every four to six hours as needed Pseudoephedrine Hcl 60 mg tablet Discontinued 60 MG PO EVERY 4-6 HOURS as needed March 19, 2024 12:00am December 21, 2024 5:48pm DNExceed 4 doses/24h Start: 09-18-2021 End: 10-26-2021 Pseudoephedrine Hcl (Sudafed ) 30 mg Tablet Discontinued 30 MG PO 2-4 TIMES PER DAY as needed for ALLERGIES September 18, 2021 12:00am October 26, 2021 1:04pm Sudafed Active Problems Active Problems Problem Classification Problem Date Documented Da te Episodic/Chronic Asthma (20 sources) Mild intermittent asthma; Translations: [Mild intermittent asthma with (acute) exacerbation] Chronic Chronic obstructive pulmonary disease and bronchiectasis (2 sources) Mucopurulent chronic bronchitis Onset: 06-25-2022 Resolved: 06-25-2022 Chronic Disorders of lipid metabolism (20 sources) Mixed hyperlipidemia; Translations: [Mixed hyperlipidemia] Onset: 09-30-2021 Resolved: 09-30-2021 Chronic Fluid and electrolyte disorders (8 sources) Hypovolemia; Translations: [Hypovolemia] 10-26-2021 Episodic Gastrointestinal hemorrhage (20 sources) Rectal hemorrhage; Translations: [Hemorrhage of anus and rectum] 03-19-2024 Episodic Headache; including migraine (4 sources) Migraine; Translations: [Migraine, unspecified, not intractable, without status migrainosus] 03-19-2024 Chronic Immunizations and screening for infectious disease (6 sources) Contact with and (suspected) exposure to other viral communicable diseases; Translations: [Contact with or exposure to other viral diseases] Onset: 09-05-2021 Resolved: 10-18-2021 Episodic Influenza (3 sources) Influenza due to Influenza A virus; Translations: [Influenza due to other identified influenza virus with other respiratory manifestations] 12-21-2024 Episodic Nausea and vomiting (8 sources) Nausea; Translations: [Nausea] 10-26-2021 Episodic Osteoarthritis (20 sources) Arthropathy of left hip joint; Translations: [Unilateral primary osteoarthritis, left hip] Onset: 08-04-2021 Resolved: 08-04-2021 Chronic Other connective tissue disease (20 sources) Trochanteric bursitis of left hip; Translations: [Trochanteric bursitis, left hip] 03-19-2024 Episodic Other connective tissue disease (16 sources) Bilateral trochanteric bursitis; Translations: [Trochanteric bursitis, right hip] Episodic Other connective tissue disease (2 sources) Other muscle spasm Episodic Other connective tissue disease (9 sources) Trochanteric bursitis; Translations: [Trochanteric bursitis, left hip] 03-19-2024 Episodic Other connective tissue disease (1 source) Trochanteric bursitis of right hip; Translations: [Trochanteric bursitis, right hip] 03-19-2024 Episodic Other gastrointestinal disorders (20 sources) Dysphagia; Translations: [Dysphagia, unspecified] 03-19-2024 Episodic Other gastrointestinal disorders (8 sources) Diarrhea; Translations: [Diarrhea, unspecified] 10-26-2021 Episodic [...] and taste] Episodic Other nervous system disorders (4 sources) Disorder of body system; Translations: [Other disturbances of smell and taste] 03-19-2024 Episodic Other non-traumatic joint disorders (20 sources) Hip pain; Translations: [Pain in unspecified hip] 03-19-2024 Episodic Other non-traumatic joint disorders (1 source) Pain in left shoulder Episodic Other screening for suspected conditions (not mental disorders or infectious disease) (4 sources) Encounter for screening for cardiovascular disorders; Translations: [Encounter for screening mammogram for malignant neoplasm of breast] Onset: 08-05-2021 Resolved: 08-05-2021 Episodic Other skin disorders (8 sources) Eruption; Translations: [Rash and other nonspecific skin eruption] 11-03-2021 Episodic Other upper respiratory infections (5 sources) Acute maxillary sinusitis, unspecified; Translations: [Acute pansinusitis, unspecified] Onset: 09-05-2021 Resolved: 06-25-2022 Episodic Pneumonia (except that caused by tuberculosis or sexually transmitted disease) (1 source) Bronchopneumonia, unspecified organism Episodic Residual codes; unclassified (4 sources) H/O Spinal surgery; Translations: [Other specified postprocedural states] 03-19-2024 Episodic Spondylosis; intervertebral disc disorders; other back problems (20 sources) Lumbosacral spondylosis; Translations: [Spondylosis without myelopathy or radiculopathy, lumbosacral region] Onset: 08-05-2021 Resolved: 01-12-2022 Chronic Spondylosis; intervertebral disc disorders; other back problems (19 sources) Spinal stenosis, lumbar region without neurogenic claudication; Translations: [Radiculopathy, lumbar region] Onset: 08-04-2021 Resolved: 01-12-2022 Episodic Unclassified (4 sources) Tonsillectomy planned; Translations: [Tonsillectomy planned] 03-19-2024 Unclassified (4 sources) Cholecystectomy planned; Translations: [Cholecystectomy planned] 03-19-2024 Unclassified (1 source) Gynecologic Exam Onset: 10-10-2024 Viral infection (12 sources) Disease caused by 2019-nCoV; Translations: [COVID-19] [...] Results Test Name Value Interpretation Reference Range Facility MM screening mammo BI w/CADo n 07-02-2025 MM screening mammo BI w/CAD [facility] [address] [place] [address] Mammography Report Signed Patient: Mindi Zheng MR#: [id number] : 1970 Acct:[id number] Age/Sex: 55 / F Adm Date: 07/02/25 Loc: [place] Room: Type: [facility] Attending Dr: Referral Self Ordering Provider: SELF,REFERRAL Date of Service: 07/02/25 Procedure(s): MM screening mammo BI w/CAD Accession Number(s): ([id number]) MM/MM screening mammo BI w/CAD: SCREENING Copies to: Carol Sweet CNP SELF,REFERRAL CLINICAL DATA: Screening for malignancy. BILATERAL SCREENING MAMMOGRAMS - FULL FIELD DIGITAL WITH TOMOSYNTHESIS AND CAD Tomosynthesis craniocaudal and mediolateral oblique views of both breasts were obtained using low- dose digital technique. Comparison is made to prior studies from 06/18/2024, 06/13/2023, 06/07/2022, and 06/01/2021. This examination was reviewed with the aid of CAD. There are scattered fibroglandular densities. Benign-appearing calcifications are present. There are no dominant masses, typically malignant calcifications or architectural distortion. There has been no significant interval change. MM/MM screening mammo BI w/CAD IMPRESSION: NO MAMMOGRAPHIC EVIDENCE OF MALIGNANCY. ROUTINE FOLLOW-UP IS RECOMMENDED IN ONE YEAR. RESULT CODE: 2 Benign Findings(s) DENSITY CODE: 2 (approximately 25-50% glandular) There are scattered areas of fibroglandular density. FOLLOW UP: 1YR The false-negative rate of mammography is approximately 10-percent. Management of a palpable abnormality must be based on clinical grounds. Patient was entered into a reminder system with a target due date for the next mammogram. Impression dictated by: Marck Desir M.D. 07/02/2025 4:04 PM Dictation Location: [facility] Dictated By: Marck Desir II, MD 07/02/25 1601 Signed By: 07/02/25 1604 Normal [facility] Mammography reportOrdered By : Marck Desir on 07-02-2025 Diagnostic imaging study [facility] [address] [place] [address] Mammography Report Signed Patient: Mindi Zheng MR#: [id number] : 1970 Acct:[id number] Age/Sex: 55 / F Adm Date: 5 Loc: [place] Room: Type: [facility] Attending Dr: Referral Self Ordering Provider: SELF,REFERRAL Date of Service: 07/02/25 Procedure(s): MM screening mammo BI w/CAD Accession Number(s): ([id number]) MM/MM screening mammo BI w/CAD: SCREENING Copies to: Carol Sweet CNP SELF,REFERRAL ~ CLINICAL DATA: Screening for malignancy. BILATERAL SCREENING MAMMOGRAMS - FULL FIELD DIGITAL WITH TOMOSYNTHESIS AND CAD Tomosynthesis craniocaudal and mediolateral oblique views of both breasts were obtained using low-dose digital technique. Comparison is made to prior studies from 06/18/2024, 06/13/2023, 06/07/2022, and 06/01/2021. This examination was reviewed with the aid of CAD. There are scattered fibroglandular densities. Benign-appearing calcifications are present. There are no dominant masses, typically malignant calcifications orarchitectural distortion. There has been no significant interval change. MM/MM screening mammo BI w/CAD IMPRESSION: NO MAMMOGRAPHIC EVIDENCE OF MALIGNANCY. ROUTINE FOLLOW-UP IS RECOMMENDED IN ONE YEAR. RESULT CODE: 2 Benign Findings(s) DENSITY CODE: 2 (approximately 25-50% glandular) There are scattered areas of fibroglandular density. FOLLOW UP: 1YR The false-negative rate of mammography is approximately 10-percent. Management of a palpable abnormality must be based on clinical grounds. Patient was entered into a reminder system with a target due date for the next mammogram. Impression dictated by: Marck Desir M.D. 07/02/2025 4:04 PM Dictation Location: [facility] Dictated By: Marck Desir II, MD 07/02/25 1601 Signed By: 07/02/25 1604 [facility] Work Phone: COVID + FLU Quick Testingon 12-19-2023 SARS-CoV-2 (COVID-19) RNA BREANNA+probe Ql (Unsp spec) Positive [facility] [employer] Other COVID + FLU Quick Testing Negative [employer] [facility] [employer] Other XR chest 2V*on 11-16-2022 XR chest 2V* [facility] [employer] Other XR chest 2V* [facility] [place] [employer] Other XR chest 2V* [address] [facility] [employer] Other XR chest 2V* [place] [address] [facility] [employer] Other XR chest 2V* XRay Report [employer] Other XR chest 2V* Signed [employer] Other XR chest 2V* Patient: Mindi Zheng MR#: [id number] [place] [facility] Other XR chest 2V* 7706 [employer] Other XR chest 2V* : 1970 Acct:[id number] [employer] Other XR chest 2V* Age/Sex: 52 / F ADM Date: 11/16/22 [employer] Other XR chest 2V* Loc: [facility] Room: Type: [facility] [employer] Other XR chest 2V* Attending Dr: Yovani Hurd [facility] [employer] Other XR chest 2V* Copies to: Yovani Hurd, [facility] [employer] Other XR chest 2V* Ordering Provider: Yovani Hurd [facility] [employer] Other XR chest 2V* Date of Service: 11/16/22 [employer] Other XR chest 2V* XR/XR chest 2V*: Subacute cough [employer] Other XR chest 2V* Chest 2 views [facility] [employer] Other XR chest 2V* CLINICAL HISTORY: Nonproductive cough for 2 weeks with left shoulder pain for 2 days. [employer] Other XR chest 2V* COMPARISON: None [employer] Other XR chest 2V* FINDINGS: [employer] Other XR chest 2V* Heart normal size. Lungs are clear. No free air. [employer] Other XR chest 2V* XR/XR chest 2V* [employer] Other XR chest 2V* IMPRESSION: [employer] Other XR chest 2V* NO ACUTE CARDIOPULMONARY ABNORMALITY. [employer] Other XR chest 2V* Impression dictated by: Maycol Colon Jr., D.OAmanuel11/16/2022 3:35 PM [employer] Other XR chest 2V* Dictation Location: [address] [employer] Other XR chest 2V* Transcribed By: PWS 11/16/22 [facility] [employer] Other XR chest 2V* Dictated By: Maycol Colon Jr DO 11/16/22 [facility] [employer] Other XR chest 2V* Signed By: [employer] Other XR chest 2V* 11/16/22 [facility] [employer] [facility] [employer] Other XR hips BI 4V adulton 2021 XR hips BI 4V adult [facility] [employer] Other XR hips BI 4V adult [facility] [employer] Other XR hips BI 4V adult [address] [place] [address] [employer] Other XR hips BI 4V adult [address] [employer] Other XR hips BI 4V adult XRay Report [place] [facility] Other XR hips BI 4V adult Signed [employer] Other XR hips BI 4V adult Patient: Mindi Zheng MR#: [id number] [place] [facility] Other XR hips BI 4V adult 7706 [employer] Other XR hips BI 4V adult : 1970 Acct:[id number] [employer] Other XR hips BI 4V adult Age/Sex: 51 / F ADM Date: 02/02/22 [employer] Other XR hips BI 4V adult Loc: [facility] Room: Type: [facility] [employer] Other XR hips BI 4V adult Attending Dr: Gordon Aaron MD [employer] Other XR hips BI 4V adult Ordering Provider: Gordon Aaron MD [employer] Other XR hips BI 4V adult Date of Service: 02/02/22 [employer] Other XR hips BI 4V adult XR/XR hips BI 4V adult: Hip pain [employer] Other XR hips BI 4V adult Copies to: Gordon Aaron MD [employer] Other XR hips BI 4V adult ADULT PELVIS WITH BILATERAL HIPS -3 views [employer] Other XR hips BI 4V adult CLINICAL HISTORY: Bilateral chronic hip and groin pain, greater on the left. No reported injury. [employer] Other XR hips BI 4V adult Back surgery 4 months ago. [employer] Other XR hips BI 4V adult COMPARISON: KUB 08/23/2014 [employer] Other XR hips BI 4V adult AP view of the pelvis as well as frog-lateral views of both hips were obtained. No fracture, [employer] Other XR hips BI 4V adult dislocation or bony destruction is seen. The hip joint spaces are symmetric. There is no sig [employer] Other XR hips BI 4V adult nificant arthritic change at the hips. Enthesophytes are visualized at the iliac crests and greater [employer] Other XR hips BI 4V adult trochanters. The SI joints are intact and show minor sclerosis. The soft tissues are unremarkable. [employer] Other XR hips BI 4V adult XR/XR hips BI 4V adult [employer] Other XR hips BI 4V adult IMPRESSION: [place] [facility] Other XR hips BI 4V adult NO ACUTE PLAIN FILM FINDINGS. [employer] Other XR hips BI 4V adult Impression dictated by: Tracey Carlson M.D.02/02/2022 3:50 PM [employer] Other XR hips BI 4V adult Dictation Location: [place] [address] [employer] Other XR hips BI 4V adult Transcribed By: PWS 02/02/22 1550 [employer] Other XR hips BI 4V adult Dictated By: Tracey Carlson MD 02/02/22 154 [employer] Other XR hips BI 4V adult Signed By: [employer] Other XR hips BI 4V adult 02/02/22 1550 No rt [facility] Other COVID + FLU Quick Testingon 11-24-2021 SARS-CoV-2 (COVID-19) RNA BREANNA+probe Ql (Unsp spec) Negative [employer] Other COVID + FLU Quick Testing Negative [employer] Other COVID Quick Testingon 2020 Result Positive [employer] Other XR lumbar spine AP/LAT/FLX/E XTon 08-04-2021 XR lumbar spine AP/LAT/FLX/EXT [facility] [employer] Other XR lumbar spine AP/LAT/FLX/EXT [facility] [place] [employer] Other XR lumbar spine AP/LAT/FLX/EXT [address] [facility] [employer] Other XR lumbar spine AP/LAT/FLX/[place] [address] [employer] Other XR lumbar spine AP/LAT/FLX/EXT XRay Report [employer] Other XR lumbar spine AP/LAT/FLX/EXT Signed [employer] Other XR lumbar spine AP/LAT/FLX/EXT Patient: Mindi Zheng MR#: [id number] [employer] Other XR lumbar spine AP/LAT/FLX/EXT 7706 [employer] Other XR lumbar spine AP/LAT/FLX/EXT : 1970 Acct:[id number] [employer] Other XR lumbar spine AP/LAT/FLX/EXT Age/Sex: 51 / F ADM Date: 08/04/21 [employer] Other XR lumbar spine AP/LAT/FLX/EXT Loc: XD Room: Type: [facility] [employer] Other XR lumbar spine AP/LAT/FLX/EXT Attending Dr: Leon Puente MD [employer] Other XR lumbar spine AP/LAT/FLX/EXT Ordering Provider: Leon Puente MD [employer] Other XR lumbar spine AP/LAT/FLX/EXT Date of Service: 08/04/21 [employer] Other XR lumbar spine AP/LAT/FLX/EXT XR/XR lumbar spine AP/LAT/FLX/EXT: M54.16 [employer] Other XR lumbar spine AP/LAT/FLX/EXT Copies to: Leon Puente MD [employer] Other XR lumbar spine AP/LAT/FLX/EXT XR lumbar spine AP/LAT/FLX/EXT 08/04/2021 2:11 PM [employer] Other XR lumbar spine AP/LAT/FLX/EXT SIGNS AND SYMPTOMS: Low back pain radiating to left thigh radiating to the mid and lower calf [employer] Other XR lumbar spine AP/LAT/FLX/EXT PROTOCOLS: Frontal, lateral, and flexion-extension views of the lumbar spine [employer] Other XR lumbar spine AP/LAT/FLX/EXT COMPARISON: 12/08/2018 [employer] Other XR lumbar spine AP/LAT/FLX/EXT FINDINGS: [employer] Other XR lumbar spine AP/LAT/FLX/EXT There is a levoconvex curvature of the lumbar spine. This is slightly more pronounced when [employer] Other XR lumbar spine AP/LAT/FLX/EXT compared to the prior exam. There is no fracture or destructive lesion. There is no pathologic [employer] Other XR lumbar spine AP/LAT/FLX/EXT movement on flexion or extension. [employer] Other XR lumbar spine AP/LAT/FLX/EXT Minimal intervertebral disc height loss is noted throughout the lumbar spine with mild anterior [employer] Other XR lumbar spine AP/LAT/FLX/EXT osteophyte formation at T12-L1, L1-L2, L2-3, and L5-S1. Facet degenerative changes are present [employer] Other XR lumbar spine AP/LAT/FLX/EXT greatest at L4-5 and L5-S1.. [employer] Other XR lumbar spine AP/LAT/FLX/EXT The sacrum and sacroiliac joints are normal. [employer] Other XR lumbar spine AP/LAT/FLX/EXT Atherosclerotic changes are noted in the abdominal aorta. There is evidence of prior [employer] Other XR lumbar spine AP/LAT/FLX/EXT cholecystectomy. [employer] Other XR lumbar spine AP/LAT/FLX/EXT XR/XR lumbar spine AP/LAT/FLX/EXT [employer] Other XR lumbar spine AP/LAT/FLX/EXT IMPRESSION: [facility] Other XR lumbar spine AP/LAT/FLX/EXT Mild multilevel degenerative change similar to prior exam. [facility] Other XR lumbar spine AP/LAT/FLX/EXT There is a mild levoconvex curvature of the lumbar spine. This is slightly more pronounced. [facility] Other XR lumbar spine AP/LAT/FLX/EXT No pathologic movement on flexion or extension. [facility] Other XR lumbar spine AP/LAT/FLX/EXT Impression dictated by: Marck Desir M.D.08/04/2021 4:42 PM [facility] Other XR lumbar spine AP/LAT/FLX/EXT Dictation Location: [place] [address] [facility] Other XR lumbar spine AP/LAT/FLX/EXT Transcribed By: LISA 08/04/21 [facility] Other XR lumbar spine AP/LAT/FLX/EXT Dictated By: Marck Desir II, MD 08/04/21 [facility] Other XR lumbar spine AP/LAT/FLX/EXT Signed By: [facility] Other XR lumbar spine AP/LAT/FLX/EXT 08/04/21 [facility] Other Vital Signs Date Time Vital Sign Value Performing Clinician Facility 12-21-2024 16:50-0500 Body height 168.91 cm [facility] 12-21-2024 16:50-0500 Body mass index (BMI) [Ratio] 31.8 kg/m2 [facility] 12-21-2024 16:50-0500 Body temperature 97.3 [degF] [facility] 12-21-2024 16:50-0500 Body weight 90.71 kg [facility] 12-21-2024 16:50-0500 Diastolic blood pressure 75 mm[Hg] [facility] 12-21-2024 16:50-0500 Heart rate 110 /min [facility] 12-21-2024 16:50-0500 Respiratory rate 18 /min [facility] 12-21-2024 16:50-0500 SaO2% (BldA) [Mass fraction] 97 % [facility] 12-21-2024 16:50-0500 Systolic blood pressure 122 mm[Hg] [facility] 03-19-2024 09:36-0400 Body height 168.91 cm [facility] 03-19-2024 09:36-0400 Body mass index (BMI) [Ratio] 34 kg/m2 [facility] 03-19-2024 09:36-0400 Body weight 97.18 kg [facility] 03-19-2024 09:36-0400 Diastolic blood pressure 78 mm[Hg] [facility] 03-19-2024 09:36-0400 Heart rate 87 /min [facility] 03-19-2024 09:36-0400 SaO2% (BldA) [Mass fraction] 98 % [facility] 03-19-2024 09:36-0400 Systolic blood pressure 112 mm[Hg] [facility] 12-19-2023 09:00-0500 Body height 168.91 cm Maryann Pati Other [employer] [facility] [employer] Other 12-19-2023 09:00-0500 Body mass index (BMI) [Ratio] 31.79 kg/m2 Maryann Pati Other [facility] Other 12-19-2023 09:00-0500 Body temperature 97.2 [degF] Maryann Pati Other [facility] Other 12-19-2023 09:00-0500 Body weight 90.72 kg Maryann Pati Other [facility] Other 12-19-2023 09:00-0500 Respiratory rate 18 /min Maryann Pati Other [facility] Other 12-19-2023 09:00-0500 SaO2% (BldA) [Mass fraction] 96 % Maryann Pati Other [facility] Other 08-04-2023 09:00-0400 Body height 168.91 cm Lv Rodríguez Other [facility] Other 08-04-2023 09:00-0400 Body mass index (BMI) [Ratio] 32.16 kg/m2 Lv Rodríguez Other [facility] Other 08-04-2023 09:00-0400 Body weight 91.76 kg Lv Rodríguez Other [facility] Other 08-04-2023 09:00-0400 Diastolic blood pressure 88 mm[Hg] Lv Rodríguez Other [facility] Other 08-04-2023 09:00-0400 Respiratory rate 18 /min Lv Rodríguez Other [facility] Other 08-04-2023 09:00-0400 SaO2% (BldA) [Mass fraction] 97 % Lv Rodríguez Other [facility] Other 08-04-2023 09:00-0400 Systolic blood pressure 122 mm[Hg] Lv Rodríguez Other [facility] Other 07-07-2023 15:15-0400 Body height 168.91 cm Lv Rodríguez Other [facility] Other 07-07-2023 15:15-0400 Body mass index (BMI) [Ratio] 33.22 kg/m2 Lv Rodríguez Other [facility] Other 07-07-2023 15:15-0400 Body weight 94.8 kg Lv Rodríguez Other [facility] Other 07-07-2023 15:15-0400 Diastolic blood pressure 78 mm[Hg] Lv Rodríguez Other [facility] Other 07-07-2023 15:15-0400 Respiratory rate 18 /min Lv Rodríguez Other [facility] Other 07-07-2023 15:15-0400 SaO2% (BldA) [Mass fraction] 98 % Lv Rodríguez Other [facility] Other 07-07-2023 15:15-0400 Systolic blood pressure 130 mm[Hg] Lv Rodríguez Other [facility] Other 11-16-2022 14:45-0500 Body height 168.91 cm Yovani Hurd Other [facility] Other 11-16-2022 14:45-0500 Body mass index (BMI) [Ratio] 31.67 kg/m2 Yovani Hurd Other [facility] Other 11-16-2022 14:45-0500 Body weight 90.36 kg Yovani Hurd Other [facility] Other 11-16-2022 14:45-0500 Diastolic blood pressure 78 mm[Hg] Yovani Binks Other [facility] Other 11-16-2022 14:45-0500 Respiratory rate 16 /min Yovani Binks Other [facility] Other 11-16-2022 14:45-0500 SaO2% (BldA) [Mass fraction] 99 % Yovani Binks Other [facility] Other 11-16-2022 14:45-0500 Systolic blood pressure 122 mm[Hg] Yovani Kernks Other [facility] Other 10-25-2022 10:30-0500 Body height 168.91 cm Yovani Kernks Other [facility] Other 10-25-2022 10:30-0500 Body mass index (BMI) [Ratio] 31.89 kg/m2 Yovani Kernks Other [facility] Other 10-25-2022 10:30-0500 Body temperature 98 [degF] Yovani Kernks Other [facility] Other 10-25-2022 10:30-0500 Body weight 90.99 kg Yovani Binks Other [facility] Other 10-25-2022 10:30-0500 Diastolic blood pressure 78 mm[Hg] Yovani Binks Other [facility] Other 10-25-2022 10:30-0500 Respiratory rate 16 /min Yovani Hurd Other [facility] Other 10-25-2022 10:30-0500 SaO2% (BldA) [Mass fraction] 99 % Yovani Hurd Other [facility] Other 10-25-2022 10:30-0500 Systolic blood pressure 118 mm[Hg] Yovani Hurd Other [facility] Other 06-25-2022 10:45-0400 Body height 168.91 cm Lv Rodríguez Other [facility] Other 06-25-2022 10:45-0400 Body mass index (BMI) [Ratio] 32.51 kg/m2 Lv Rodríguez Other [facility] Other 06-25-2022 10:45-0400 Body temperature 99.4 [degF] Lv Rodríguez Other [facility] Other 06-25-2022 10:45-0400 Body weight 92.76 kg Lv Rodríguez Other [facility] Other 06-25-2022 10:45-0400 Diastolic blood pressure 84 mm[Hg] Lv Rodríguez Other [facility] Other 06-25-2022 10:45-0400 Respiratory rate 18 /min Lv Rodríguez Other [facility] Other 06-25-2022 10:45-0400 SaO2% (BldA) [Mass fraction] 98 % Lv Rodríguez Other [facility] Other 06-25-2022 10:45-0400 Systolic blood pressure 124 mm[Hg] Lv Rodríguez Other [facility] Other 02-02-2022 16:30-0400 Body height 168.91 cm Gordon Aaron Other [facility] Other 02-02-2022 16:30-0400 Body mass index (BMI) [Ratio] 31.79 kg/m2 Gordon Aaron Other [facility] Other 02-02-2022 16:30-0400 Body weight 90.72 kg Gordon Aaron Other [facility] Other 01-12-2022 11:20-0500 Body height 168.91 cm Leon Puente Other [facility] Other 01-12-2022 11:20-0500 Body mass index (BMI) [Ratio] 31.79 kg/m2 Leon Puente Other [facility] Other 01-12-2022 11:20-0500 Body weight 90.72 kg Leon Puente Other [facility] Other 11-24-2021 10:45-0500 Body height 168.91 cm Lv Rodríguez Other [facility] Other 11-24-2021 10:45-0500 Respiratory rate 18 /min Lv Rodríguez Other [facility] Other 11-24-2021 10:45-0500 SaO2% (BldA) [Mass fraction] 98 % Lv Rodríguez Other [facility] Other 11-10-2021 14:00-0500 Body height 168.91 cm Leon Puente Other [facility] Other 11-10-2021 14:00-0500 Body mass index (BMI) [Ratio] 31.79 kg/m2 Leon Puente Other [facility] Other 11-10-2021 14:00-0500 Body weight 90.72 kg Leon Puente Other [facility] Other 10-18-2021 10:00-0500 Body height 168.91 cm Gordon Hernandez Other [facility] Other 10-18-2021 10:00-0500 Body mass index (BMI) [Ratio] 31.79 kg/m2 Gordon Hernandez Other [facility] Other 10-18-2021 10:00-0500 Body temperature 98 [degF] Gordon Mary Other [facility] Other 10-18-2021 10:00-0500 Body weight 90.72 kg Gordon Hernandez Other [facility] Other 10-18-2021 10:00-0500 Diastolic blood pressure 91 mm[Hg] Gordon Mary Other [facility] Other 10-18-2021 10:00-0500 SaO2% (BldA) [Mass fraction] 98 % Gordon Mary Other [facility] Other 10-18-2021 10:00-0500 Systolic blood pressure 136 mm[Hg] Gordon Mary Other [facility] Other 09-05-2021 13:30-0400 Body height 168.91 cm Carmen Ginty Other [facility] Other 09-05-2021 13:30-0400 Body mass index (BMI) [Ratio] 32.75 kg/m2 Carmen Ginty Other [facility] Other 09-05-2021 13:30-0400 Body temperature 97.5 [degF] Carmen Ginty Other [facility] Other 09-05-2021 13:30-0400 Body weight 93.44 kg Carmen Ginty Other [facility] Other 09-05-2021 13:30-0400 SaO2% (BldA) [Mass fraction] 100 % Carmen Ginty Other [facility] Other 08-05-2021 11:30-0400 Body height 168.91 cm Lv Rodríguez Other [facility] Other 08-05-2021 11:30-0400 Body mass index (BMI) [Ratio] 32.84 kg/m2 Lv Rodríguez Other [facility] Other 08-05-2021 11:30-0400 Body temperature 96.9 [degF] Lv Rodríguez Other [facility] Other 08-05-2021 11:30-0400 Body weight 93.71 kg Lv Rodríguez Other [facility] Other 08-05-2021 11:30-0400 Diastolic blood pressure 84 mm[Hg] Lv Rodríguez Other [facility] Other 08-05-2021 11:30-0400 Respiratory rate 18 /min Lv Rodríguez Other [facility] Other 08-05-2021 11:30-0400 SaO2% (BldA) [Mass fraction] 98 % Lv Rodríguez Other [facility] Other 08-05-2021 11:30-0400 Systolic blood pressure 130 mm[Hg] Lv Mendozamer Other [facility] Other 08-04-2021 14:20-0400 Body height 168.91 cm Leon Puente Other [facility] Other 08-04-2021 14:20-0400 Body mass index (BMI) [Ratio] 31.79 kg/m2 Leon Puente Other [facility] Other 08-04-2021 14:20-0400 Body weight 90.72 kg Leon Puente Other [facility] Other 08-04-2021 14:20-0400 Diastolic blood pressure 72 mm[Hg] Leon Puente Other [facility] Other 08-04-2021 14:20-0400 Systolic blood pressure 124 mm[Hg] Leon Puente Other [facility] Other Encounters Encounter Date Encounter Type Care Provider Facility Start: 07-02-2025 End: 07-02-2025 Patient encounter procedure [facility] Work Phone: Start: 07-02-2025 End: 07-02-2025 ambulatory Carol Sweet [employer] Work Phone: [facility] Work Phone: Start: 06-14-2025 End: 06-14-2025 ambulatory ISSA RIDLEYCORIN [facility] Start: 06-04-2025 ambulatory MORENA LACY [facility] Start: 12-21-2024 End: 12-21-2024 ambulatory [facility] Work Phone: Start: 12-21-2024 End: 12-21-2024 Patient encounter procedure [facility] [place] Work Phone: Start: 10-10-2024 End: 10-10-2024 ambulatory LV Drake [facility] Start: 10-10-2024 Encounter for gynecological examination (general) (routine) without abnormal findings LV ANNE [facility] Start: 06-19-2024 End: 06-19-2024 ambulatory JAY JAMILZPATRICK Not Available Start: 06-18-2024 End: 06-18-2024 ambulatory DO Lv Rodríguez Work Phone: [facility] Work Phone: Start: 06-18-2024 End: 06-18-2024 Patient encounter procedure DO Lv Rodríguez Work Phone: [facility] Work Phone: Start: 03-19-2024 End: 03-19-2024 ambulatory [facility] Work Phone: Start: 03-19-2024 End: 03-19-2024 Patient encounter procedure [facility] [place] Work Phone: Start: 12-19-2023 End: 12-19-2023 ambulatory Maryann Pati Other [facility] Other Start: 12-19-2023 Office outpatient vi sit 15 minutes Maryann Pati [facility] Start: 12-19-2023 Telephone encounter Lv Rodríguez [facility] Start: 09-14-2023 End: 09-14-2023 ambulatory Lv Rodríguez Other [facility] Other Start: 09-14-2023 Telephone encounter Lv Najera [facility] Start: 08-19-2023 End: 08-19-2023 ambulatory Lv Rodríguez Other [facility] Other Start: 08-19-2023 Telephone encounter Lv Najera [facility] [place] Start: 08-04-2023 (Procedure) Short Lv Rodríguez [facility] [place] Start: 08-04-2023 End: 08-04-2023 ambulatory Lv Rodríguez Other [facility] Other Start: 07-14-2023 End: 07-14-2023 ambulatory Lv Rodríguez Other [facility] Other Start: 07-14-2023 Telephone encounter Lv Najera [facility] [place] Start: 07-08-2023 End: 07-08-2023 ambulatory Lv Rodríguez Other [facility] Other Start: 07-08-2023 Telephone encounter Lv Najera [facility] [place] Start: 07-07-2023 End: 07-07-2023 Patient encounter procedure DO Lv Rodríguez Work Phone: [facility] Start: 07-07-2023 End: 07-07-2023 ambulatory DO Lv Rodríguez Work Phone: [facility] Work Phone: Start: 07-07-2023 Office outpatient vi sit 15 minutes Lv Mendozamer [facility] [place] Start: 06-13-2023 End: 06-13-2023 ambulatory DO Lv Drake Anne Work Phone: [facility] Work Phone: Start: 06-13-2023 End: 06-13-2023 Patient encounter procedure DO Lv Rodríguez Work Phone: [facility] Work Phone: Start: 11-16-2022 End: 11-16-2022 ambulatory DO Lv Rodríguez Work Phone: [facility] Work Phone: Start: 11-16-2022 End: 11-16-2022 Patient encounter procedure DO Lv Rodríguez Work Phone: [facility] [place] Start: 11-16-2022 Office outpatient vi sit 15 minutes Yovani Hurd [facility] [place] Start: 11-16-2022 Telephone encounter Lv Najera [facility] [place] Start: 11-16-2022 End: 11-16-[address] JAYLYN LARSEN Facility: Start: 10-25-2022 End: 10-25-2022 ambulatory Yovani Hurd Other [facility] Other Start: 10-25-2022 Office outpatient vi sit 15 minutes Yovani Hurd [facility] [place] Start: 09-27-2022 End: 09-27-2022 ambulatory Lv Rodríguez Other [facility] Other Start: 09-27-2022 Telephone encounter Lv Najera [facility] [place] Start: 09-17-2022 End: 09-17-2022 ambulatory Lv Rodríguez Other [facility] Other Start: 09-17-2022 Telephone encounter Lv Najera [facility] [place] Start: 06-25-2022 End: 06-25-2022 ambulatory Lvsantana Rodríguez Other [facility] Other Start: 06-25-2022 Office outpatient vi sit 15 minutes Lv Rodríguez [facility] [place] Start: 06-07-2022 End: 06-07-2022 Patient encounter procedure Referral Self [facility] Start: 02-03-2022 End: 02-03-2022 ambulatory Gordon Aaron Other [facility] Other Start: 02-03-2022 Telephone encounter Gordon Aaron [employer] Director [employer] Start: 02-02-2022 End: 02-02-2022 ambulatory Gordon Aaron Other [facility] Other Start: 02-02-2022 Office consultation new/estab patient 60 min Gordon Aaron [facility] [place] Start: 01-12-2022 End: 01-12-2022 ambulatory Leon Puente Other [facility] Other Start: 01-12-2022 Postop follow up vis it related to original px Leon Puente [facility] Start: 11-24-2021 End: 11-24-2021 ambulatory Lv Rodríguez Other [facility] Other Start: 11-24-2021 Office outpatient vi sit 15 minutes Lv Rodríguez [facility] Start: 11-10-2021 End: 11-10-2021 ambulatory Leon Puente Other [facility] Other Start: 11-10-2021 Postop follow up vis it related to original px Leon Puente [facility] Start: 11-04-2021 End: 11-04-2021 ambulatory Lv Rodríguez Other [facility] Other Start: 11-04-2021 Telephone encounter Lv Najera [facility] Start: 10-28-2021 End: 10-28-2021 ambulatory Lv Rodríguez Other [facility] Other Start: 10-28-2021 Telephone encounter Lv Rodríguez [facility] [place] Start: 10-18-2021 End: 10-18-2021 ambulatory Gordon Hernandez Other [facility] [employer] Other Start: 10-18-2021 Office outpatient vi sit 15 minutes Gordon Hernandez [facility] [address] Start: 09-30-2021 End: 09-30-2021 ambulatory Lv Anne Other [facility] Other Start: 09-30-2021 Telephone encounter Lv Anne [facility] [place] Start: 09-07-2021 Telephone encounter Leon Puente [facility] Start: 09-05-2021 End: 09-05-2021 ambulatory Carmen Gimichaely Other [facility] [employer] Other Start: 09-05-2021 Office outpatient vi sit 15 minutes Carmen Vyas [facility] [place] Start: 08-27-2021 Telephone encounter Leon Puente [facility] Start: 08-05-2021 Encounter for genera l adult medical examination without abnormal findings Lv Rodríguez [facility] [place] Start: 08-05-2021 Periodic preventive med est patient 40-64yrs Lv Rodríguez [facility] Start: 08-04-2021 Office outpatient ne w 45 minutes Leon Puente [facility] Procedures Date Procedure Procedure Detail Performing Clinician Start: 07-02-2025 Screening mammography of bilateral breasts Carol ALTMAN Work Phone: Start: 06-18-2024 Screening mammography of bilateral breasts DO Lv Rodríguez Work Phone: Start: 07-07-2023 X-ray of cervical spine DO Lv ventura Work Phone: Start: 06-13-2023 Screening mammography of bilateral breasts DO Lv Rodríguez Work Phone: Start: 11-16-2022 Plain chest X-ray DO Lv Julio Phone: Start: 06-07-2022 Screening mammography of bilateral breasts Referral Self H/O: hysterectomy H/O hysterecto my with oophorectomy Immunizations Immunization Date Immunization Notes Care Provider Carlos Alberto adamson NEGATED: Highlighted row has not occurred!08-16-2022 influenza, seasonal, injectable Patient Objection Lv Rodríguez Other [facility] Other Payers Date Payer Category Payer Self-pay [id number] 2014 Private Health Insurance [id number] 1970 Unknown [id number] [id number] 1970 Unknown [id number] 2.16.84 [id number] 1969 Unknown [id number] 2.16. [id number] 1969 Unknown [id number] 2.16. [id number] 1969 Unknown [id number] 2.16. [id number] 1969 Unknown [id number] 2.16.8 [id number] 1969 Unknown [id number] 2.16. [id number] 1960 Self-pay [id number] Private Health Insurance [id number] Unknown [id number] 2.16.8 [id number] Social History Date Type Detail Facility Sex Assigned At [facility] Other Start: 11-03-2021 End: 12-21-2021 Tobacco smoking status NMIS Never smoked tobacco (finding) [facility] Start: 1970 Sex Assigned At Female F [facility] Start: 12-21-2024 Sex Female (finding) [facility] Clinical Notes 08-04-2021 to 12-19-2023 Note Date & Type Note Facility 12-19-2023 Evaluation note Encounter Date Diagnosis Assessment Notes Dec, Contact with and (suspected) exposure to other viral communicable diseases (ICD-10 - Z20.828) Dec, COVID (ICD-10 - U07.1) Rest. Drink plenty of fluids. You may take deia-uon-qyw nter Tylenol or Motrin as needed for [...] not specified, unspecified location (ICD-10 - J01.90) [facility] Other 09-21-2023 Evaluation note* Encounter Date Diagnosis Assessment Notes Treatment Notes Treatment Clinical Notes Jul, Trigger point of neck (ICD-10 - M54.2) Jul, Trigger point of left shoulder region (ICD-10 - M25.512) 3 trigger points identified with 2 in the left trapezius and 1 in the left upper paraspinal muscle. Trigger point injection performed today and aftercare instruction detail the patient. [facility] Other 08-24-2023 Evaluation note* Encounter Date Diagnosis [...] the trapezius could consider trigger point injections. [facility] Other 01-03-2023 Evaluation note* Encounter Date Diagnosis [...] to use Ventolin inhaler prn for SOB. [facility] Other 12-12-2022 Evaluation note* Encounter Date Diagnosis [...] to treatment. Oct, Wheezing (ICD-10 - R06.2) [facility] Other 11-14-2022 Evaluation note* Encounter Date Diagnosis Assessment Notes Treatment Notes Treatment Clinical Notes Sep, Purulent bronchitis (ICD-10 - J41.1) [facility] Other 08-12-2022 Evaluation note* Encounter Date Diagnosis Assessment Notes Treatment Notes Treatment Clinical Notes Jun, Acute non-recurrent maxillary sinusitis (ICD-10 - J01.00) Patient has an acute sinusitis and has severe sinus inflammation and pressure and to help alleviate this issue quickly she was given an IM Depo-Medrol injection. She can use furs-hik-agqgqxl Flonase and nasal saline irrigation as well to help reduce symptoms. Jun, Purulent bronchitis (ICD-10 - J41.1) Patient has clinical evidence and symptoms suggestive of purulent bronchitis and she will be placed on doxycycline 100 mg twice daily for this issue. She is to call right away if she feels she is worsening or not improving. [facility] Other 03-22-2022 Evaluation note* Encounter Date Diagnosis [...] Above note written by Edgar Anderson LPN, [employer]. Edited and approved by Dr. Gordon Aaron [...] negative findings were considered in medical decision-making. [facility] Other 03-01-2022 Evaluation note* Encounter Date Diagnosis [...] bursitis of left hip (ICD-10 - M70.62) [facility] Other 01-11-2022 Evaluation note* Encounter Date Diagnosis [...] voice understanding. Nov, Wheezing (ICD-10 - R06.2) [facility] Other 12-28-2021 Evaluation note* Encounter Date Diagnosis [...] months Oct, Lumbar radiculopathy (ICD-10 - M54.16) [facility] Other 12-05-2021 Evaluation note* Encounter Date Diagnosis [...] Patient care instructions given in writting by [facility] document. [facility] Other 11-17-2021 Evaluation note* Encounter Date Diagnosis Assessment Notes Treatment Notes Treatment Clinical Notes Sep, Mixed hyperlipidemia (ICD-10 - E78.2) [facility] Other 10-23-2021 Evaluation note* Encounter Date Diagnosis [...] Patient care instructions given in writting by [facility] document [facility] Other 09-22-2021 Evaluation note* Encounter Date Diagnosis [...] screening for cardiovascular disorders (ICD-10 - Z13.6) [facility] Other 09-21-2021 Evaluation note* Encounter Date Diagnosis [...] Jul, Radiculopathy, lumbar region (ICD-10 - M54.16) [facility] Other evaluation noteNo InformationNort [facility] Other evaluation noteNo assessment information available [facility] Work Phone: Evaluation note* Diagnosis Onset Date Resolution Status Admit Date Influenza A acute December 21, 2024 4:37pm Contact with or suspected exposure to severe acute respiratory syndrome noneactive December 4:37pm [facility] Work Phone: History general Narrative - Reported* Type Description Date Medical History herpes Medical History asthma Medical History chronic low back pain Surgical History tonsillectomy Surgical History Hyseterectomy 2017 Surgical History Cholecystectomy 2019 Hospitalization History see surgical hx. [facility] Other History general Narrative - Reported* Type Description Date Medical History herpes Medical History asthma Medical History chronic low back pain Medical History sinusitis Medical History migraine headache Surgical History tonsillectomy Surgical History Hyseterectomy 2017 Surgical History Cholecystectomy 2019 Surgical History back surgery 09/30/2021 Hospitalization History see surgical hx. [facility] Other Reason for referral (narrative)[facility] for [facility]: Reason for Referral Reason *Waiting for appt Evaluate and Treat L Hip Trochanteric Bursitis with Injection Diagnosis 1 Trochanteric bursiti s of left hip (M70.62) Referral Organization [facility] Ne urosurgery Referring Provider First Name Leon Referring Provider Last Name Lisa Referring Provider Specialty Neurologica l Surgery Referred Organization [facility] Pain [facility]ag[facility] t Bone [place] Referred Provider Gordon Aaron Referred Address [address] [place], [place],[address] Referred Provider Specialty Pain Medicin e Referral Priority Routine General Notes Fore, Keyanna M 022 03:18:10 PM >Received today and sent P2P Chief Complaint and Reason for Visit Chief Complaint Screening Chief Complaint Lump in neck Chief Complaint Admit Date Congestion December 21, 2024 4 :37pm Reason for Visit Admit Date Influenza A December 21, 2024 4 :37pm Contact with or suspected ex posure to severe acute respiratory syndrome December 21, 2024 4:37pm Chief Complaint Admit Date Screening July 02, 2025 3: 27pm Family History No Family History Records Found Relationship Condition Age at Onset Recorded Date/T elidia father Heart disease Unknown Not Specified Malignant neoplasm of breast Unknown Relationship Condition Age at Onset Recorded Date/T elidia father Heart disease Unknown Not Specified Malignant neoplasm of breast Unknown father Unknown Relationship Condition Age at Onset Recorded Date/T elidia father Heart disease Unknown mother Malignant neoplasm of breast Unknown father Unknown Advance Directives No Advanced Directives Records Found Advance Directive Response Recorded Date/ Time Advance [...] Dates Referral Self Attending Provider Active Lv Rodríguez , DO Primary Care Provider Active Team Status: Active Member Role Status Dates Lv Rodríguez , DO Primary Care Provider Active Team Status: Inactive Member Role Status Sameera Rodríguez , DO Primary Care Provider Active Yovani Hurd APRN Attending Provider Active Team Status: Inactive Member Role Status Sameera Rodríguez , DO Primary Care Provider, Referring Provider Active Referral Self Attending Provider Active Team Status: Inactive Member Role Status Sameera Rodríguez , DO Primary Care Provider, Attending Provider Active Team Status: Inactive Member Role Status Dates Lv Rodríguez , DO Primary Care Provider Active Start: March 19, 2024 End: March 19, 2024 Yovani Hurd APRN Attending Provider Active Start: March 19, 2024 End: March 19, 2024 Team Status: Inactive Member Role Status Sameera Rodríguez , Primary Care Provider Active Start: June 18, 2024 End: June 18, 2024 Referral Self Attending Provider Active Start: A ugust 2023 End: June 18, 2024 Team Status: Inactive Member Role Status Sameera Rodríguez DO Primary Care Provider Active Start: December 21, 2024 End: December 21, 2024 Maryann Krueger APRN Attending Provider Active S tart: December 21, 2024 End: December 21, 2024 Team Status: Active Member Role Status ANUPAMA Rivera Primary Care Provider Active Team Status: Inactive Member Role Status Dates Referral Self Attending Provider Active Start: A ugust 2024 End: July 02, 2025 ANUPAMA Clemens Primary Care Provider Active Start: July 02, 2025 End: July 02, 2025 ANUPAMA Clemens Referring Provider Active Start: July 02, 2025 End: July 02, 2025 Goals (unrecognized section and content) Goals may be documented in a n alternate section INFORMATION SOURCE (unrecogn ized section and content) DATE CREATED AUTHOR 11/16/2022 [facility] DATE CREATED AUTHOR AUTHOR'S ORGANIZ ATION 06/21/2024 [facility] EPIC DATE CREATED AUTHOR AUTHOR'S ORGANIZ ATION 06/05/2025 [facility] DATE CREATED AUTHOR AUTHOR'S ORGANIZ ATION 06/16/2025 [facility] DATE CREATED AUTHOR AUTHOR'S ORGANIZ ATION 07/08/2025 [facility] FOR RECORDS PERTAINING TO PATIENTS WHO ARE [...] BE BASED ON THE PRIMARY CLINICAL RECORDS. [facility] [employer] [facility] provides no warranty or guarantee of the accuracy or completeness of information in this document.
[2025-08-05 08:50] LABS: Cholesterol 222 mg/dL (<=200); HDL Cholesterol 45 mg/dL (40-60); Triglycerides 137 mg/dL (<=150); VLDL CHOLESTEROL 27.4 mg/dL
== END 2025-08-05 08:07 | disposition home or self-care (01) ==
LOC: LAB 08:08
PROVIDERS: PCP Nurse Practitioner Family; Visit Provider Nurse Practitioner Family
DX: E78.5 Hyperlipidemia, unspecified (principal); R73.03 Prediabetes
CPT/HCPCS: 36415; 80061; 83036